=== PATIENT | female | born 1985 | race Two or more races ===

== ENCOUNTER 2016-09-04 20:02 | Emergency (ER) | payer OTHER ==
[2016-09-04 20:36] VITALS: BP 112/84
[2016-09-04] MEDS ORDERED: PROAIR HFA8.5 GM INH (21:05)
[2016-09-04] MEDS ORDERED: PRED20TA PO (21:05)
[2016-09-04] MEDS ORDERED: AZIT250T PO (21:05)
--- NOTE | 2016-09-04 21:05 | PHYS DOC ---
Past Medical History Past Medical History: Diabetes-Type II, Other Additional Past Medical Histor: left leg deficit from injury during birthing Past Surgical History: No Surgical History Alcohol Use: None Drug Use: None Adult General Chief Complaint Chief Complaint: COUGH HPI HPI Patient is a 31 year old female presents emergency department stating that she' s had a cough for the last 2 days. She states that she has also been having some nasal drainage with slight shortness of air. Patient is able to talk in full sentences. She states that she has had fevers in the evening up to 100. She has taken Tylenol and ibuprofen for the fevers although has not taken anything for the cough and congestion. Patient denies any nausea or vomiting. Review of Systems Review of Systems Constitutional: fever Eyes: Denies change in visual acuity, redness, or eye pain [] HENT:nasal congestion denies sore throat [] Respiratory: cough and shortness of breath [] Cardiovascular: No additional information not addressed in HPI [] GI: Denies abdominal pain, nausea, vomiting, bloody stools or diarrhea [] Musculoskeletal: Denies back pain or joint pain [] Integument: Denies rash or skin lesions [] Neurologic: Denies headache, focal weakness or sensory changes [] Current Medications Current Medications Current Medications Medications (Trade) Dose Ordered Sig/Don Start Time Stop Time Status Last Admin Dose Admin Albuterol Sulfate (Ventolin Neb Soln) 2.5 mg 1X ONCE 09/04/16 21:15 09/04/16 21:16 DC 09/04/16 21:18 2.5 MG Allergies Allergies Allergies Coded Allergies Type Severity Reaction Last Updated Verified No Known Drug Allergies 04/14/14 No Physical Exam Physical Exam Constitutional: Well developed, well nourished, no acute distress, non-toxic appearance. [] HENT: Normocephalic, atraumatic, bilateral external ears normal, oropharynx moist, no oral exudates, nose normal. Bilateral tympanic membranes appear to be normal throat with erythematous noted no exudate. She does have postnasal drip noted. No frontal or maxillary sinus tenderness noted she does state that she has pain and discomfort along the bridge of the naris. Eyes: PERRLA, EOMI, conjunctiva normal, no discharge. [] Neck: Normal range of motion, no tenderness, supple, no stridor. [] Cardiovascular:Heart rate regular rhythm, no murmur [] Lungs & Thorax: Bilateral breath sounds clear to auscultation [] Skin: Warm, dry, no erythema, no rash. [] Back: No tenderness Extremities: No tenderness, no cyanosis, no clubbing, ROM intact, no edema. [] Neurologic: Alert and oriented X 3, normal motor function, normal sensory function, no focal deficits noted. [] Psychologic: Affect normal, judgement normal, mood normal. [] Current Patient Data Vital Signs Vital Signs Date Time Temp Pulse Resp B/P Pulse Ox O2 Delivery O2 Flow Rate FiO2 09/04/16 21:13 95 Room Air 09/04/16 20:36 98.0 102 20 98.0 EKG EKG [] Radiology/Procedures Radiology/Procedures [] Course & Med Decision Making Course & Med Decision Making Pertinent Labs and Imaging studies reviewed. (See chart for details) Patient provided with an albuterol treatment here in the emergency department. Patient states that she is breathing better. Patient will be discharged home in stable condition. Signs and symptoms to return to emergency department was provided. Patient agrees with discharge instructions, treatment regimen and followup recommendations. [] Dragon Disclaimer Dragon Disclaimer This electronic medical record was generated, in whole or in part, using a voice recognition dictation system. Departure Departure Impression: Primary Impression: Bronchitis Disposition: 01 HOME, SELF-CARE Condition: STABLE Referrals: CORY GUO MD (PCP) Patient Instructions: Acute Bronchitis, [id number] Additional Instructions: Home to rest Medication as prescribed Tylenol or Ibuprofen for fever, chills or generalized body aches and discomfort Drink plenty of fluids Followup with primary care provider in 3-5 days Return to emergency department as needed for signs and symptoms that become worse. Scripts Azithromycin (Zithromax)250 Mg [id number] Mg PO DAILY ANTI-BIOTIC #6 TAB Ref 0 2 tablets today then 1 tablet daily until gone Prov:LILA MOSER NP 09/04/16 Prednisone 20 Mg Tablet2 Tab PO DAILY #10 TAB Prov:LILA MOSER [employer]NAGER [employer] 09/04/16 Albuterol Sulfate (Proair Hfa Inhaler)8.5 Gm Hfa.aer.ad1 Puff INH PRN Q6HRS PRN SHORTNESS OF BREATH #1 INHALER Ref 0 Prov:LILA MOSER NP 09/04/16 LILA MOSER NP Sep 04, 2016 21:05
[2016-09-04] MEDS ORDERED: ALBUTEROL SULFATE 2.5 MG/3 ML NEBU. NEB ONE (21:15)
== END 2016-09-04 21:46 | disposition home or self-care (01) ==
LOC: ER 20:02
DX: J40 Bronchitis, not specified as acute or chronic (principal); E11.9 Type 2 diabetes mellitus without complications
CPT/HCPCS: 94640; 99283-25

== ENCOUNTER 2016-09-19 18:15 | Emergency (ER) | payer OTHER ==
[~2016-09-19] VITALS: Ht 152.4 cm; Wt 72.6 kg
[~2016-09-19 18:15] MED LIST: AZIT250T PO; PRED20TA PO; PROAIR HFA8.5 GM INH
[2016-09-19 18:25] VITALS: BP 134/82
--- NOTE | 2016-09-19 19:12 | PHYS DOC ---
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 Patient also has a complaint of a sore throat. Patient denies chest pain or shortness of breath. She denies any exposure to anyone with tuberculosis. She denies ever being tested positive for TB. She denies hospitalization or foreign travel within the past 90 days. She states that she did take an antibiotic within the past 30 days for an upper respiratory infection. She does not remember what this antibiotic was. She denies any history of cardiopulmonary disease. She states that she is a nonsmoker. Review of Systems Review of Systems Constitutional: Denies fever or chills [] Eyes: Denies change in visual acuity, redness, or eye pain [] HENT: Denies nasal congestion or sore throat [] Respiratory: Denies cough or shortness of breath [] Cardiovascular: No additional information not addressed in HPI [] GI: Denies abdominal pain, nausea, vomiting, bloody stools or diarrhea [] : Denies dysuria or hematuria [] Musculoskeletal: Denies back pain or joint pain [] Integument: Denies rash or skin lesions [] Neurologic: Denies headache, focal weakness or sensory changes [] Endocrine: Denies polyuria or polydipsia [] Allergies Allergies Allergies Coded Allergies Type Severity Reaction Last Updated Verified No Known Drug Allergies 04/14/14 No Physical Exam Physical Exam Constitutional: Well developed, well nourished, no acute distress, non-toxic appearance. [] HENT: Normocephalic, atraumatic, bilateral external ears normal, oropharynx moist, no oral exudates, nose normal. There is no trismus. Posterior oropharynx is hyperemic with swollen soft tissues. Patient is able to control her own secretions. There is no unilateral swelling in the posterior oropharynx or uvular deviation. Eyes: PERRLA, EOMI, conjunctiva normal, no discharge. [] Neck: Normal range of motion, no tenderness, supple, no stridor. There is no meningismus. There is bilateral anterior and posterior cervical lymphadenopathy. Cardiovascular:Heart rate regular rhythm, no murmur [] Lungs & Thorax: Bilateral breath sounds clear to auscultation [] Abdomen: Bowel sounds normal, soft, no tenderness, no masses, no pulsatile masses. [] Skin: Warm, dry, no erythema, no rash. [] Back: No tenderness, no CVA tenderness. [] Extremities: No tenderness, no cyanosis, no clubbing, ROM intact, no edema. [] Neurologic: Alert and oriented X 3, normal motor function, normal sensory function, no focal deficits noted. [] Psychologic: Affect normal, judgement normal, mood normal. [] Current Patient Data Vital Signs Vital Signs Date Time Temp Pulse Resp B/P Pulse Ox O2 Delivery O2 Flow Rate FiO2 09/19/16 18:25 98.1 99 18 99 Room Air 98.1 EKG EKG [] Radiology/Procedures Radiology/Procedures [] Course & Med Decision Making Course & Med Decision Making Pertinent Labs and Imaging studies reviewed. (See chart for details) [] Dragon Disclaimer Dragon Disclaimer This electronic medical record was generated, in whole or in part, using a voice recognition dictation system. Departure Departure Impression: Primary Impression: Pharyngitis Disposition: HOME, SELF-CARE Condition: GOOD Referrals: CORY GUO MD (PCP) Patient Instructions: Viral and Bacterial Pharyngitis, [id number] Additional Instructions: 1. Take the medications prescribed. 2. Review the discharge instructions provided for self-care and reasons to return the emergency department. 3. Call primary care doctor's office in the morning to schedule follow-up appointment. Scripts Hydrocodone Bit/Acetaminophen (Hydrocodone-Apap 7.5-325/15 Soln )15 Ml [id number] Ml PO PRN Q6HRS PRN sore throat and cough #120 ML Ref 0 Prov:ANSELMO TRIVEDI 09/19/16 Amoxicillin 500 Mg Capsule1 Cap PO TID #30 CAP Prov:ANSELMO TRIVEDI 09/19/16 ANSELMO TRIVEDI Sep 19, 2016 19:12
[2016-09-19] MEDS ORDERED: HYDR15SO4 PO (19:47)
[2016-09-19] MEDS ORDERED: AMOX500C PO (19:47)
--- NOTE | 2016-09-20 08:44 | RAD ---
Indication: Hemoptysis. Time of exam 1920 hours. FINDINGS: The heart size is normal. The lungs are clear. No pleural effusion or pneumothorax is identified. The pulmonary vascularity is normal. IMPRESSION: No acute abnormality detected.
== END 2016-09-19 19:55 | disposition home or self-care (01) ==
LOC: ER 18:15
DX: J02.9 Acute pharyngitis, unspecified (principal); R04.2 Hemoptysis; E11.9 Type 2 diabetes mellitus without complications
CPT/HCPCS: 71020; 99284

== ENCOUNTER 2016-11-01 13:43 | Inpatient (IN) | payer OTHER ==
[~2016-11-01] VITALS: Ht 152.4 cm; Wt 72.6 kg
[2016-11-01] MEDS: MIDAZOLAM HCL 2 MG/2 ML VIAL. IV PRN ×3 (10:37→22:53)
[~2016-11-01 13:43] MED LIST changes: +AMOX500C PO; +HYDR15SO4 PO
[2016-11-01] MEDS ORDERED: IV NORMAL SALINE 1000ML BAG 1,000 ML IV SCH (15:01)
[2016-11-01 15:15] LABS: BASO % 0 % (0-3); EOS % 1 % (0-3); HEMATOCRIT 42.1 % (36.0-47.0); HEMOGLOBIN 13.4 g/dL (12.0-15.5); LYMPH # 2.7 x10^3/uL (1.0-4.8); LYMPH % 29 % (24-48); MEAN CORPUSCULAR HEMOGLOBIN 25 pg (25-35); MEAN CORPUSCULAR HGB CONC 32 g/dL (31-37); MEAN CORPUSCULAR VOLUME 79 fL (79-100); MONO % 4 % (0-9); NEUT % 66 % (31-73); PLATELET COUNT 230 x10^3/uL (140-400); RED BLOOD COUNT 5.33 x10^6/uL (3.50-5.40); RED CELL DISTRIBUTION WIDTH 14.4 % (11.5-14.5); WHITE BLOOD COUNT 9.4 x10^3/uL (4.0-11.0)
[2016-11-01] MEDS ORDERED: FENTANYL PF 100 MCG/2 ML VIAL. IV PRN ×3 (15:15→20:00)
[2016-11-01] MEDS ORDERED: ONDANSETRON PF 4 MG/2 ML VIAL. IV ONE (15:15)
[2016-11-01] MEDS ORDERED: FAMOTIDINE 20 MG/2 ML VIAL IVP ONE (15:15)
[2016-11-01 15:23] LABS: CALCIUM 9.3 mg/dL (8.5-10.1); CREATININE 0.7 mg/dL (0.6-1.0); GFR 98.9; POTASSIUM 3.7 mmol/L (3.5-5.1)
[2016-11-01 15:28] LABS: ALBUMIN/GLOBULIN RATIO 0.8 (1.0-1.7); TOTAL BILIRUBIN 0.4 mg/dL (0.2-1.0); TOTAL PROTEIN 8.8 g/dL (6.4-8.2)
--- NOTE | 2016-11-01 15:44 | RAD ---
Ultrasound right upper quadrant of the abdomen 11/01/2016 Clinical history: Right upper quadrant abdominal pain with nausea and vomiting. Real-time ultrasound examination right upper quadrant abdomen was performed. Multiple images were obtained. Findings: Echogenic gallstones are seen within the gallbladder. The gallbladder wall is thickened measuring 5 mm in thickness. The patient is tender with palpation of the ultrasound transducer over the gallbladder (positive sonographic [place] sign). These findings likely reflect cholecystitis. The common bile duct measures 6 mm in diameter which is within the upper limits of normal. The liver is normal in size measuring 11.4 cm in length. Increased echogenicity of the liver parenchyma seen consistent with mild fatty infiltration. No focal abnormality of the liver is seen. The visualized portions of the pancreas and right kidney are within normal limits. Impression: 1. Fatty infiltration liver. 2. Cholelithiasis. The gallbladder wall is thickened. The patient has a positive sonographic Lewis sign. These findings likely reflect cholecystitis.
[2016-11-01 16:33] LABS: BILIRUBIN,URINE NEGATIVE (NEG); GLUCOSE,URINE NEGATIVE (NEG); NITRITE,URINE NEGATIVE (NEG); PH,URINE 5.5; PROTEIN,URINE NEGATIVE (NEG-TRACE); UROBILINOGEN,URINE 0.2 mg/dL (0.2 mg/dL)
[2016-11-01 16:38] LABS: BACTERIA,URINE 0 /HPF (0-FEW)
[2016-11-01 16:42] LABS: SQUAMOUS EPITHELIAL CELL,UR FEW /LPF
--- NOTE | 2016-11-01 17:25 | PHYS DOC ---
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 Patient states that she has had symptoms over the past 2 days. Patient states her pain is progressively worsening during this time. Patient states the worst of her pain is in the upper portion of her abdomen and on the right side. Patient denies history of similar symptoms. Patient states that she has had multiple episodes of both vomiting and diarrhea since onset of symptoms. Patient denies any fevers. Patient rates her pain currently as 8 out of 10. Patient has not taken any medications to help with symptoms. Patient denies any known exacerbating symptoms. Patient states that the pain is constant. Review of Systems Review of Systems Constitutional: Denies fever or chills [] Eyes: Denies change in visual acuity, redness, or eye pain [] HENT: Denies nasal congestion or sore throat [] Respiratory: Denies cough or shortness of breath [] Cardiovascular: Denies chest pain or edema [] GI: Abdominal pain, nausea, vomiting, diarrhea [] : Denies dysuria or hematuria [] Musculoskeletal: Denies back pain or joint pain [] Integument: Denies rash or skin lesions [] Neurologic: Denies headache, focal weakness or sensory changes [] Current Medications Current Medications Current Medications Medications (Trade) Dose Ordered Sig/Don Start Time Stop Time Status Last Admin Dose Admin Famotidine (Pepcid) 20 mg 1X ONCE 11/01/16 15:15 11/01/16 15:16 DC 11/01/16 15:11 20 MG Fentanyl Citrate 50 mcg 50 mcg PRN Q15MIN PRN 11/01/16 15:15 11/02/16 15:14 11/01/16 15:10 50 MCG Ondansetron HCl (Zofran) 4 mg 1X ONCE 11/01/16 15:15 11/01/16 15:16 DC 11/01/16 15:11 4 MG Sodium Chloride (Iv Sodium Chloride 0.9% 1000ml Bag) 1,000 ml @ 1,000 mls/hr Q1H 11/01/16 15:01 11/01/16 16:00 DC 11/01/16 15:10 1,000 MLS/HR Allergies Allergies Allergies Coded Allergies Type Severity Reaction Last Updated Verified No Known Drug Allergies 04/14/14 No Physical Exam Physical Exam Constitutional: Alert, afebrile, appears in mild to moderate discomfort. [] HENT: Normocephalic, atraumatic, bilateral external ears normal, oropharynx moist, no oral exudates, nose normal. [] Eyes: PERRLA, EOMI, conjunctiva normal, no discharge. [] Neck: Normal range of motion, no tenderness, supple, no stridor. [] Cardiovascular:Heart rate regular rhythm, no murmur [] Lungs & Thorax: Bilateral breath sounds clear to auscultation [] Abdomen: Bowel sounds normal, soft, right upper quadrant tenderness to palpation with guarding, no rebound tenderness, no masses, no pulsatile masses. [] Skin: Warm, dry, no erythema, no rash. [] Back: No tenderness, no CVA tenderness. [] Extremities: No tenderness, no cyanosis, no clubbing, ROM intact, no edema. [] Neurologic: Alert and oriented X 3, normal motor function, normal sensory function, no focal deficits noted. [] Current Patient Data Vital Signs Vital Signs Date Time Temp Pulse Resp B/P Pulse Ox O2 Delivery O2 Flow Rate FiO2 11/01/16 16:18 71 20 116/73 98 Room Air 11/01/16 14:09 98.3 98.3 Lab Values Laboratory Tests Test 11/01/16 14:10 11/01/16 16:10 White Blood Count 9.4x10^3/uL (4.0-11.0) Red Blood Count 5.33x10^6/uL (3.50-5.40) Hemoglobin 13.4g/dL (12.0-15.5) Hematocrit 42.1% (36.0-47.0) Mean Corpuscular Volume 79fL (79-100) Mean Corpuscular Hemoglobin 25pg (25-35) Mean Corpuscular Hemoglobin Concent 32g/dL (31-37) Red Cell Distribution Width 14.4% (11.5-14.5) Platelet Count 230x10^3/uL (140-400) Neutrophils (%) (Auto) 66% (31-73) Lymphocytes (%) (Auto) 29% (24-48) Monocytes (%) (Auto) 4% (0-9) Eosinophils (%) (Auto) 1% (0-3) Basophils (%) (Auto) 0% (0-3) Neutrophils # (Auto) 6.2x10^3uL (1.8-7.7) Lymphocytes # (Auto) 2.7x10^3/uL (1.0-4.8) Monocytes # (Auto) 0.4x10^3/uL (0.0-1.1) Eosinophils # (Auto) 0.1x10^3/uL (0.0-0.7) Basophils # (Auto) 0.0x10^3/uL (0.0-0.2) Sodium Level 140mmol/L (136-145) Potassium Level 3.7mmol/L (3.5-5.1) Chloride Level 105mmol/L (98-107) Carbon Dioxide Level 23mmol/L (21-32) Anion Gap 12 (6-14) Blood Urea Nitrogen 8mg/dL (7-20) Creatinine 0.7mg/dL (0.6-1.0) Estimated GFR (Cockcroft-Gault) 98.9 BUN/Creatinine Ratio 11 (6-20) Glucose Level 105mg/dL (70-99) H Calcium Level 9.3mg/dL (8.5-10.1) Total Bilirubin 0.4mg/dL (0.2-1.0) Aspartate Amino Transferase (AST) 17U/L (15-37) Alanine Aminotransferase (ALT) 20U/L (14-59) Alkaline Phosphatase 85U/L (46-116) Total Protein 8.8g/dL (6.4-8.2) H Albumin 4.0g/dL (3.4-5.0) Albumin/Globulin Ratio 0.8 (1.0-1.7) L Lipase 120U/L (73-393) Urine Collection Type Unknown Urine Color Yellow Urine Clarity Clear Urine pH 5.5 Urine Specific [place] 1.020 Urine Protein Negativemg/dL (NEG-TRACE) Urine Glucose (UA) Negativemg/dL (NEG) Urine Ketones (Stick) Tracemg/dL (NEG) Urine Blood Negative (NEG) Urine Nitrite Negative (NEG) Urine Bilirubin Negative (NEG) Urine Urobilinogen Dipstick 0.2mg/dL (0.2 mg/dL) Urine Leukocyte Esterase Negative (NEG) Urine RBC 1-2/HPF (0-2) Urine WBC 1-4/HPF (0-4) Urine Squamous Epithelial Cells Few/LPF Urine Bacteria 0/HPF (0-FEW) Urine Mucus Mod/LPF Laboratory Tests 11/01/16 14:10 Laboratory Tests 11/01/16 14:10 EKG EKG Not performed [] Radiology/Procedures Radiology/Procedures [facility] [address] [place] [address] IMAGING REPORT Signed PATIENT: KAUR PEREIRA ACCOUNT: [id number] : 1985 LOCATION: ER AGE: 31 SEX: F EXAM STATUS: REG ER ORD. PHYSICIAN: ARBEN GONZALES MD REASON: epigastric and right upper quadrant abdominal pain PROCEDURE: ABDOMEN LTD Ultrasound right upper quadrant of the abdomen 11/01/2016 Clinical history: Right upper quadrant abdominal pain with nausea and vomiting. Real-time ultrasound examination right upper quadrant abdomen was performed. Multiple images were obtained. Findings: Echogenic gallstones are seen within the gallbladder. The gallbladder wall is thickened measuring 5 mm in thickness. The patient is tender with palpation of the ultrasound transducer over the gallbladder (positive sonographic [place] sign). These findings likely reflect cholecystitis. The common bile duct measures 6 mm in diameter which is within the upper limits of normal. The liver is normal in size measuring 11.4 cm in length. Increased echogenicity of the liver parenchyma seen consistent with mild fatty infiltration. No focal abnormality of the liver is seen. The visualized portions of the pancreas and right kidney are within normal limits. Impression: 1. Fatty infiltration liver. 2. Cholelithiasis. The gallbladder wall is thickened. The patient has a positive sonographic Lewis sign. These findings likely reflect cholecystitis. DICTATED and SIGNED BY: STEPHANY MCCARTHY MD DATE: 11/01/16 1538 CC: ARBEN GONZALES MD; CORY GUO MD ~ [] Course & Med Decision Making Course & Med Decision Making Pertinent Labs and Imaging studies reviewed. (See chart for details) The patient's ultrasound shows findings concerning for acute cholecystitis. I consult that Dr. Jin of general surgery. She agreed consult on patient in hospital to evaluate for possible inpatient cholecystectomy. Patient was admitted to Dr. Pappas. eJsús Disclaimer Jesús Disclaimer This electronic medical record was generated, in whole or in part, using a voice recognition dictation system. Departure Departure Impression: Primary Impression: Acute cholecystitis Disposition: ADMITTED INPATIENT Admitting Physician: Maribel Pappas Condition: STABLE Referrals: CORY GUO MD (PCP) ARBEN GONZALES MD Nov 01, 2016 17:25
[2016-11-01] MEDS ORDERED: ONDANSETRON PF 4 MG/2 ML VIAL. IV PRN (17:45)
[2016-11-01] MEDS: IV NORMAL SALINE 1000ML BAG 1,000 ML IV SCH (18:00)
--- NOTE | 2016-11-01 18:21 | ACF ---
Admission Forms Criteria GALLBLADDER OR BILE DUCT INFLAMMATION OR STONE Clinical Indications for Admission to Inpatient Care ( Place 'X' for any and all applicable criteria): Admission is indicated for patients with ANY ONE of the following(1)(2)(3)(4)(5) : [ ]I. Acute cholecystitis as indicated by ALL of the following: [ ]a) Right upper quadrant pain, mass, or tenderness [ ]b) Systemic signs of inflammation indicated by ANY ONE of the following: [ ]i) Fever [ ]ii) C-reactive protein level greater than 10 mg/L (95 nmol/L) [ ]iii) White blood cell count greater than 10,000/mm3 (10 x109/L) or less than 4000/mm3 (4 x109/L) [X]II. Inpatient admission required rather than observation care (Also use Gallbladder or Bile Duct Inflammation or Stone: Observation Care as appropriate) because of ANY ONE of the following: [ ]a) Common bile duct obstruction diagnosed [ ]b) Vomiting that is severe or persistent [X]c) Severe pain requiring acute inpatient management [ ]d) Signs of intestinal obstruction or peritonitis [A] [ ]e) Severe electrolyte abnormalities requiring inpatient care [ ]f) Absent bowel sounds with complete ileus(8) [ ]g) Hemodynamic instability [ ]h) High fever or infection requiring inpatient admission as indicated by ANY ONE of the following (9): [ ]1) Appropriate outpatient or observation care antimicrobial Treatment. unavailable, not effective, or not feasible [ ]2) Temperature greater than 104.9 degrees F (40.5 degrees C) (oral) [ ]3) Temperature greater than 103.1 degrees F (39.5 degrees C) (oral) or less than 96.8 degrees F (36 degrees C) (rectal) that does not respond to all emergency treatment measures [ ]4) Documented bacteremia [ ]i) IV fluid to replace significant ongoing losses (greater than 3 L/m2 per day) [ ]j) Percutaneous or open drainage (eg, abscess, biliary tract) procedures [ ]k) Immediate inpatient surgery [ ]l) Other condition, treatment or monitoring requiring inpatient admission [ ]III. Acute cholangitis as indicated by ALL of the following(9)(10): [ ]a) Systemic signs of inflammation indicated by ANY ONE of the following: [ ]i) Fever [ ]ii) C-reactive protein level greater than 10 mg/L (95 nmol /L) [ ]iii) White blood cell count greater than 10,000/mm3 (10 x109/L) or less than 4000/mm3 (4 x109/L) [ ]b) Evidence of common bile duct disease indicated by ANY ONE of the following: [ ]i) Total serum bilirubin level greater than or equal to 2 mg/dL (34 micromoles/L) [ ]ii) Liver function test (alkaline phosphatase (ALP), r- glutamyltransferase (GGT), aspartate aminotransferase (AST), or alanine aminotransferase (ALT)) greater than 1.5 times the upper limit of normal[B] [ ]iii) Hepatobiliary imaging showing biliary dilatation or evidence of etiology (eg, stricture, stone, previously placed stent) Extended stay beyond goal length of stay may be needed for (1)(2)): [ ]a) Bacteremia or Hemodynamic instability [ ]b) Cholecystectomy [ ]c) Other surgical procedure(24) [ ]d) Percutaneous or endoscopic ultrasound-guided cholecystostomy The original [facility] content created by [facility] has been revised. The portions of the content which have been revised are identified through the use of italic text or in bold, and [facility] has neither reviewed nor approved the modified material. All other unmodified content is copyright [facility]. Please see references footnoted in the original [facility] edition 2016 Admission Criteria Met?: Yes KATY ALATORRE Nov 01, 2016 18:21
[2016-11-01 19:30] VITALS: BP 128/86
[2016-11-01] MEDS ORDERED: IV RINGERS,LACTATED 1000ML 1,000 ML IV SCH (19:56)
[2016-11-01] MEDS ORDERED: PROCHLORPERAZINE 10 MG/2 ML VIAL. IV PRN (20:00)
[2016-11-01] MEDS ORDERED: MORPHINE SULFATE 2 MG/ML DISP.SYRIN. IV PRN (20:00)
[2016-11-01] MEDS ORDERED: HYDROMORPHONE 2 MG/ML VIAL. IV PRN (20:00)
[2016-11-01] MEDS ORDERED: LIDOCAINE 1% 1 ML SYRINGE. ID PRN (20:00)
[2016-11-01] MEDS ORDERED: BUPIVAC MPF-EPI 0.5%-1:200000 30 ML VIAL. ONE (20:28)
[2016-11-01] MEDS ORDERED: SURGICEL HEMOSTAT 4X8 EACH. ONE (20:28)
[2016-11-01] MEDS ORDERED: IOHEXOL 300 MG/ML 50 ML VIAL. ONE (20:28)
[2016-11-01] MEDS ORDERED: MIDAZOLAM HCL 2 MG/2 ML VIAL. ONE ×2 (20:42→22:36)
[2016-11-01] MEDS ORDERED: ROCURONIUM 50 MG/5 ML VIAL. ONE (20:42)
[2016-11-01] MEDS ORDERED: FENTANYL PF 100 MCG/2 ML VIAL. ONE (20:42)
[2016-11-01] MEDS ORDERED: DEXAMETHASONE SOD PHOS 20 MG/5 ML VIAL. ONE (20:42)
[2016-11-01] MEDS ORDERED: ONDANSETRON PF 4 MG/2 ML VIAL. ONE (20:42)
[2016-11-01] MEDS ORDERED: PROPOFOL 20 ML IV ONE (20:42)
[2016-11-01] MEDS ORDERED: LIDOCAINE 2% 100 MG/5 ML DISP.SYRIN. ONE (20:42)
[2016-11-01] MEDS ORDERED: SUCCINYLCHOLINE 200 MG/10 ML VIAL. ONE (20:58)
[2016-11-01] MEDS ORDERED: CEFAZOLIN 2GM PREMIX 50 ML IV ONE ×2 (21:00→21:02)
--- NOTE | 2016-11-01 21:04 | PDOC ---
Provider Note Provider Note consult dictated #[id number] a/p acute cholecystitis. r/b d/w pt. i used the de ionizer operator phone for the entire visit. PERRI FLOR MD Nov 01, 2016 21:03
[2016-11-01] MEDS ORDERED: HYDROMORPHONE 2 MG/ML VIAL. IVP PRN (21:15)
[2016-11-01] MEDS ORDERED: GLYCOPYRROLATE 1 MG/5 ML VIAL. ONE (21:56)
[2016-11-01] MEDS ORDERED: NEOSTIGMINE METHYLSULFATE 5 MG/5 ML SYRINGE. ONE (21:56)
[2016-11-01] MEDS ORDERED: KETOROLAC 30 MG/ML SYRINGE FOR OR. INJ ONE (21:56)
[2016-11-01] MEDS ORDERED: DESFLURANE 31 TO 60 MINUTES IH ONE (21:59)
--- NOTE | 2016-11-01 22:18 | PDOC ---
BRIEF OPERATIVE NOTE Pre-Op Diagnosis cholecystitis lap juan, ioc k terrie youssef ebl 10 ivf 700 [facility] #[id number] PERRI FLOR MD Nov 01, 2016 22:18
[2016-11-01] MEDS ORDERED: RACEPINEPHRINE 2.25% 0.5 ML NEBU. ONE (22:33)
--- NOTE | 2016-11-01 22:39 | PDOC1 ---
History and Physical Date of Admission Date of Admission DATE: 11/01/16 TIME: 22:36 Identification/Chief Complaint Chief Complaint abd pain Source Source: Chart review, Patient History of Present Illness History of Present Illness Ms. Wong, is a 31 year old [place]an female admited for acute abdominal pain, nausea, vomiting, and diarrhea. 2 days of symptoms. Pain was 8/10 ER diagnosed acute juan, taken to OR tonight by Dr. Jin, Past Medical History Cardiovascular: No pertinent hx Pulmonary: No pertinent hx GI: No pertinent hx Heme/Onc: No pertinent hx Hepatobiliary: No pertinent hx Psych: No pertinent hx Rheumatologic: No pertinent hx Infectious disease: No pertinent hx Grav: 3 Para: 3 Past Surgical History Past Surgical History: No pertinent history Family History Family History: No Significant Social History Smoke: No ALCOHOL: none Current Problem List Problem List Problems Medical Problems: (1) Acute cholecystitis Status: Acute Problems: Current Medications Current Medications Current Medications Fentanyl Citrate 50 mcg 50 mcg PRN Q15MIN PRN IV PAIN GREATER THAN 3/10 Last administered on 11/01/16 15:10; Start 11/01/16 at 15:15; Stop 11/02/16 at 15:14 Sodium Chloride (Iv Sodium Chloride 0.9% 1000ml Bag) 1,000 ml @ 1,000 mls/hr Q1H IV Last administered on 11/01/16 15:10; Start 11/01/16 at 15:01; Stop at 16:00; Status DC Ondansetron HCl (Zofran) 4 mg 1X ONCE IV Last administered on 11/01/16 15:11; Start 11/01/16 at 15:15; Stop 11/01/16 at 15:16; Status DC Famotidine (Pepcid) 20 mg 1X ONCE IVP Last administered on 11/01/16 15:11; Start 11/01/16 at 15:15; Stop 11/01/16 at 15:16; Status DC Ondansetron HCl (Zofran) 4 mg PRN Q8HRS PRN IV NAUSEA/VOMITING; Start 11/01/16 at 17:45; Stop 11/02/16 at 17:44 Fentanyl Citrate 50 mcg 50 mcg PRN Q2HR PRN IV PAIN; Start 11/01/16 at 17:45; Stop 11/02/16 at 17:44 Sodium Chloride (Iv Sodium Chloride 0.9% 1000ml Bag) 1,000 ml @ 125 mls/hr Q8H IV ; Start 11/01/16 at 18:00; Stop 11/02/16 at 17:59 Fentanyl Citrate (Fentanyl 2ml Vial) 25 mcg PRN Q5MIN PRN IV MILD PAIN; Start 11/01/16 at 20:00; Stop 11/02/16 at 19:59 Fentanyl Citrate (Fentanyl 2ml Vial) 50 mcg PRN Q5MIN PRN IV MODERATE PAIN; Start 11/01/16 at 20:00; Stop 11/02/16 at 19:59 Morphine Sulfate 1 mg 1 mg PRN Q10MIN PRN IV SEVERE PAIN; Start 11/01/16 at 20: 00; Stop 11/02/16 at 19:59 Lactated Ringer's (Iv Lactated Ringers) 1,000 ml @ 0 mls/hr Q0M IV Last administered on 11/01/16 21:30; Start 11/01/16 at 19:56; Stop 11/02/16 at 07:55 Lidocaine HCl 2 ml 1X PRN PRN ID IV START; Start 11/01/16 at 20:00; Stop at 19:59 Hydromorphone HCl (Dilaudid) 0.5 mg PRN Q10MIN PRN IV SEV PAIN,Second choice; Start 11/01/16 at 20:00; Stop 11/02/16 at 19:59 Prochlorperazine Edisylate (Compazine) 5 mg PACU PRN PRN IV NAUSEA; Start at 20:00; Stop 11/02/16 at 19:59 Cellulose 1 each STK-MED ONCE .ROUTE ; Start 11/01/16 at 20:28; Stop 11/01/16 at 20:29; Status DC Bupivacaine HCl/ Epinephrine Bitart (Sensorcain-Mpf Epi 0.5%-[id number]) 30 ml STK -MED ONCE .ROUTE Last administered on 11/01/16 21:39; Start 11/01/16 at 20:28; Stop 11/01/16 at 20:29; Status DC Iohexol (Omnipaque 300 Mg/ml) 50 ml STK-MED ONCE .ROUTE Last administered on 21:39; Start 11/01/16 at 20:28; Stop 11/01/16 at 20:29; Status DC Dexamethasone Sodium Phosphate (Decadron) 20 mg STK-MED ONCE .ROUTE ; Start 11/01 at 20:42; Stop 11/01/16 at 20:43; Status DC Ondansetron HCl 4 mg 4 mg STK-MED ONCE .ROUTE ; Start 11/01/16 at 20:42; Stop 11/01/16 at 20:43; Status DC Propofol (Diprivan) 20 ml @ As Directed STK-MED ONCE IV ; Start 11/01/16 at 20:42 ; Stop 11/01/16 at 20:43; Status DC Lidocaine HCl 100 mg STK-MED ONCE .ROUTE ; Start 11/01/16 at 20:42; Stop 11/01/16 at 20:43; Status DC Midazolam HCl (Versed) 2 mg STK-MED ONCE .ROUTE ; Start 11/01/16 at 20:42; Stop 11/01/16 at 20:43; Status DC Fentanyl Citrate (Fentanyl 2ml Vial) 100 mcg STK-MED ONCE .ROUTE ; Start at 20:42; Stop 11/01/16 at 20:43; Status DC Rocuronium [place] 50 mg 50 mg STK-MED ONCE .ROUTE ; Start 11/01/16 at 20:42; Stop 11/01/16 at 20:43; Status DC Cefazolin Sodium/ Dextrose (Ancef 2gm Premix) 50 ml @ 100 mls/hr 1X ONCE IV Last administered on 11/01/16 21:20; Start 11/01/16 at 21:00; Stop 11/01/16 at 21: 29; Status DC Succinylcholine Chloride 200 mg 200 mg STK-MED ONCE .ROUTE ; Start 11/01/16 at 20 :58; Stop 11/01/16 at 20:59; Status DC Cefazolin Sodium/ Dextrose (Ancef 2gm Premix) 50 ml @ As Directed STK-MED ONCE IV ; Start 11/01/16 at 21:02; Stop 11/01/16 at 21:03; Status DC Oxycodone/ Acetaminophen (Percocet 5/325) 2 tab PRN Q4HRS PRN PO PAIN; Start at 21:15 Hydromorphone HCl (Dilaudid) 0.4 mg PRN Q2HR PRN IVP PAIN; Start 11/01/16 at 21: 15 Ketorolac Tromethamine (Toradol For Or Only) 30 mg STK-MED ONCE INJ ; Start 11/01 at 21:56; Stop 11/01/16 at 21:57; Status DC Glycopyrrolate (Robinul) 1 mg STK-MED ONCE .ROUTE ; Start 11/01/16 at 21:56; Stop 11/01/16 at 21:57; Status DC Neostigmine Methylsulfate 5 mg STK-MED ONCE .ROUTE ; Start 11/01/16 at 21:56; Stop 11/01/16 at 21:57; Status DC Desflurane (Suprane) 30 ml STK-MED ONCE IH ; Start 11/01/16 at 21:59; Stop at 22:00; Status DC Epinephrine (S2 Racepinephrine) 0.5 ml STK-MED ONCE .ROUTE ; Start 11/01/16 at 22 :33; Stop 11/01/16 at 22:34; Status DC Active Scripts Active Allergies Allergies: Coded Allergies: No Known Drug Allergies (Unverified , 04/14/14) ROS PSYCHOLOGICAL ROS: YES: Anxiety Respiratory: No: Cough, Hemoptysis, Orthopnea, Other, Pleuritic Pain, SOB with excertion, Shortness of breath, Sputum Changes, Stridor, Tachypnea, Wheezing Cardiovascular: No Chest Pain, No Edema, No Lt Headedness, No Orthopnea, No Other, No Palpitations, No Paroxysmal Noc. Dyspnea Gastrointestinal: Yes Abdominal Pain, Yes Nausea Genitourinary: No , No , No , No , No , No , No , No Discharge, No Dysuria, No Flank Pain, No Frequency, No Hematuria, No Incontinence, No Other, No Pain, No Retention, No Urgency Musculoskeletal: No Gait Disturbance, No Joint Pain, No Joint Stiffness, No Joint Swelling, No Muscle Pain, No Muscular Weakness, No Other, No Pain In:, No Swelling In: Neurological: No Behavorial Changes, No Bowel/Bladder ControlChng, No Confusion , No Dizziness, No Gait Disturbance, No Headaches, No Impaired Coord/balance, No Memory Loss, No Numbness/Tingling, No Other, No Seizures, No Speech Problems , No Tremors, No Visual Changes, No Weakness Skin: No Acne, No Dry Skin, No Eczema, No Hair Changes, No Lumps, No Mole Changes, No Mottling, No Nail Changes, No Other, No Pruritus, No Rash, No Skin Lesion Changes Physical Exam General: Alert, Cooperative, moderate distress, Other (confused) HEENT: Atraumatic, PERRLA Lungs: Clear to auscultation Heart: no murmurs Abdomen: Soft ( tender, guarding) Rectal Exam: not examined Extremities: No cyanosis, Normal pulses Skin: No breakdown Neuro: Normal tone Vitals Vitals Vital Signs Date Time Temp Pulse Resp B/P Pulse Ox O2 Delivery O2 Flow Rate FiO2 11/01/16 21:20 70 20 142/81 100 Room Air 11/01/16 19:30 97.7 97.7 Labs Labs Laboratory Tests Test 11/01/16 14:10 11/01/16 16:10 11/01/16 21:09 White Blood Count 9.4x10^3/uL (4.0-11.0) Red Blood Count 5.33x10^6/uL (3.50-5.40) Hemoglobin 13.4g/dL (12.0-15.5) Hematocrit 42.1% (36.0-47.0) Mean Corpuscular Volume 79fL (79-100) Mean Corpuscular Hemoglobin 25pg (25-35) Mean Corpuscular Hemoglobin Concent 32g/dL (31-37) Red Cell Distribution Width 14.4% (11.5-14.5) Platelet Count 230x10^3/uL (140-400) Neutrophils (%) (Auto) 66% (31-73) Lymphocytes (%) (Auto) 29% (24-48) Monocytes (%) (Auto) 4% (0-9) Eosinophils (%) (Auto) 1% (0-3) Basophils (%) (Auto) 0% (0-3) Neutrophils # (Auto) 6.2x10^3uL (1.8-7.7) Lymphocytes # (Auto) 2.7x10^3/uL (1.0-4.8) Monocytes # (Auto) 0.4x10^3/uL (0.0-1.1) Eosinophils # (Auto) 0.1x10^3/uL (0.0-0.7) Basophils # (Auto) 0.0x10^3/uL (0.0-0.2) Sodium Level 140mmol/L (136-145) Potassium Level 3.7mmol/L (3.5-5.1) Chloride Level 105mmol/L (98-107) Carbon Dioxide Level 23mmol/L (21-32) Anion Gap 12 (6-14) Blood Urea Nitrogen 8mg/dL (7-20) Creatinine 0.7mg/dL (0.6-1.0) Estimated GFR (Cockcroft-Gault) 98.9 BUN/Creatinine Ratio 11 (6-20) Glucose Level 105mg/dL (70-99) Calcium Level 9.3mg/dL (8.5-10.1) Total Bilirubin 0.4mg/dL (0.2-1.0) Aspartate Amino Transf (AST/SGOT) 17U/L (15-37) Alanine Aminotransferase (ALT/SGPT) 20U/L (14-59) Alkaline Phosphatase 85U/L (46-116) Total Protein 8.8g/dL (6.4-8.2) Albumin 4.0g/dL (3.4-5.0) Albumin/Globulin Ratio 0.8 (1.0-1.7) Lipase 120U/L (73-393) Urine Collection Type Unknown Urine Color Yellow Urine Clarity Clear Urine pH 5.5 Urine Specific [place] 1.020 Urine Protein Negativemg/dL (NEG-TRACE) Urine Glucose (UA) Negativemg/dL (NEG) Urine Ketones (Stick) Tracemg/dL (NEG) Urine Blood Negative (NEG) Urine Nitrite Negative (NEG) Urine Bilirubin Negative (NEG) Urine Urobilinogen Dipstick 0.2mg/dL (0.2 mg/dL) Urine Leukocyte Esterase Negative (NEG) Urine RBC 1-2/HPF (0-2) Urine WBC 1-4/HPF (0-4) Urine Squamous Epithelial Cells Few/LPF Urine Bacteria 0/HPF (0-FEW) Urine Mucus Mod/LPF Glucose (Fingerstick) 83mg/dL (70-99) Laboratory Tests Test 11/01/16 14:10 11/01/16 16:10 11/01/16 21:09 White Blood Count 9.4x10^3/uL (4.0-11.0) Red Blood Count 5.33x10^6/uL (3.50-5.40) Hemoglobin 13.4g/dL (12.0-15.5) Hematocrit 42.1% (36.0-47.0) Mean Corpuscular Volume 79fL (79-100) Mean Corpuscular Hemoglobin 25pg (25-35) Mean Corpuscular Hemoglobin Concent 32g/dL (31-37) Red Cell Distribution Width 14.4% (11.5-14.5) Platelet Count 230x10^3/uL (140-400) Neutrophils (%) (Auto) 66% (31-73) Lymphocytes (%) (Auto) 29% (24-48) Monocytes (%) (Auto) 4% (0-9) Eosinophils (%) (Auto) 1% (0-3) Basophils (%) (Auto) 0% (0-3) Neutrophils # (Auto) 6.2x10^3uL (1.8-7.7) Lymphocytes # (Auto) 2.7x10^3/uL (1.0-4.8) Monocytes # (Auto) 0.4x10^3/uL (0.0-1.1) Eosinophils # (Auto) 0.1x10^3/uL (0.0-0.7) Basophils # (Auto) 0.0x10^3/uL (0.0-0.2) Sodium Level 140mmol/L (136-145) Potassium Level 3.7mmol/L (3.5-5.1) Chloride Level 105mmol/L (98-107) Carbon Dioxide Level 23mmol/L (21-32) Anion Gap 12 (6-14) Blood Urea Nitrogen 8mg/dL (7-20) Creatinine 0.7mg/dL (0.6-1.0) Estimated GFR (Cockcroft-Gault) 98.9 BUN/Creatinine Ratio 11 (6-20) Glucose Level 105mg/dL (70-99) Calcium Level 9.3mg/dL (8.5-10.1) Total Bilirubin 0.4mg/dL (0.2-1.0) Aspartate Amino Transf (AST/SGOT) 17U/L (15-37) Alanine Aminotransferase (ALT/SGPT) 20U/L (14-59) Alkaline Phosphatase 85U/L (46-116) Total Protein 8.8g/dL (6.4-8.2) Albumin 4.0g/dL (3.4-5.0) Albumin/Globulin Ratio 0.8 (1.0-1.7) Lipase 120U/L (73-393) Urine Collection Type Unknown Urine Color Yellow Urine Clarity Clear Urine pH 5.5 Urine Specific [place] 1.020 Urine Protein Negativemg/dL (NEG-TRACE) Urine Glucose (UA) Negativemg/dL (NEG) Urine Ketones (Stick) Tracemg/dL (NEG) Urine Blood Negative (NEG) Urine Nitrite Negative (NEG) Urine Bilirubin Negative (NEG) Urine Urobilinogen Dipstick 0.2mg/dL (0.2 mg/dL) Urine Leukocyte Esterase Negative (NEG) Urine RBC 1-2/HPF (0-2) Urine WBC 1-4/HPF (0-4) Urine Squamous Epithelial Cells Few/LPF Urine Bacteria 0/HPF (0-FEW) Urine Mucus Mod/LPF Glucose (Fingerstick) 83mg/dL (70-99) VTE Prophylaxis Ordered VTE Prophylaxis Devices: Yes VTE Pharmacological Prophylaxi: No Assessment/Plan Assessment/Plan ACute cholecystitis taken to OR by Dr. Davin dumont I saw patient post op, she was confused and lethargic, and seemed in some panic she was able to move her right arm and leg, unable to move her left arm or left leg no plantar reflex, 3 beats clonus to ankle jerk, stat consult to Dr. You, Neuro, pt was reported fine before going to OR, MAGO HAIRSTON MD Nov 01, 2016 22:39
[2016-11-01] MEDS: FENTANYL PF 100 MCG/2 ML VIAL. IV PRN ×2 (22:50→23:12)
--- NOTE | 2016-11-01 23:03 | EKG ---
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
[2016-11-01] MEDS ORDERED: MIDAZOLAM HCL 2 MG/2 ML VIAL. IV SCH (23:45)
[2016-11-01] MEDS ORDERED: ASPIRIN ENTERIC COATED 325 MG TABLET.DR. PO ONE (23:55)
[2016-11-02] VITALS (9 sets, daily range): BP systolic 107–137; BP diastolic 62–78
[2016-11-02] MEDS: OXYCODONE/APAP 5/325 TABLET. PO PRN ×3 (00:23→12:25)
[2016-11-02] MEDS ORDERED: METF500T4 PO (00:29)
--- NOTE | 2016-11-02 00:31 | OP ---
DATE OF SURGERY: 11/01/2016 PREOPERATIVE DIAGNOSIS: Acute cholecystitis. POSTOPERATIVE DIAGNOSIS: Symptomatic cholelithiasis. PROCEDURE: Laparoscopic cholecystectomy with intraoperative cholangiogram. SURGEON: Cherry Flor M.D. ANESTHESIA: General. ESTIMATED BLOOD LOSS: 10 mL. IV FLUIDS: 700 mL. INDICATIONS: The patient is a 31-year-old female who presents with right upper quadrant epigastric pain. Ultrasound was read as acute cholecystitis. She was taken to operating room for cholecystectomy. FINDINGS: Her gallbladder was soft, without obvious evidence of acute inflammation. Intraoperative cholangiogram was interpreted as normal. DESCRIPTION OF PROCEDURE: After informed consent was obtained, the patient was taken to the operating room and placed in supine position. After adequate induction of general anesthesia, she was prepped and draped in usual sterile fashion. An umbilical skin incision was made with a scalpel, subcutaneous tissues with a hemostat. [facility] was used to grab the fascia and lift it anteriorly. Veress was used to gain access to the peritoneal cavity. Low opening pressures confirmed intraperitoneal placement of Veress. Pneumoperitoneum to 15 mmHg was established followed by placement of 5 mm port. A 5 mm 30 degree lens was inserted, which revealed good port placement. No evidence of entry trauma. She was placed head up, rotated towards her left. Three additional ports were placed under direct vision after the sites were injected with local anesthetic. One was an 11 mm epigastric and two were 5 mm right lateral ports. The gallbladder was soft and pliable. The fundus was retracted over the liver and slightly towards the right. The infundibulum was retracted towards the right and towards her toes to open triangle of Calot. The leading peritoneal edge was scored with cautery medially and laterally and carried back towards the liver with cautery. [place] dissector was then used to dissect out the triangle of Calot. At the completion of dissection, 2 structures were seen leading directly to the gallbladder, one was a cystic artery, one was a cystic duct. The gallbladder had been partially dissected away from the liver bed. The liver could be seen behind the gallbladder. The gallbladder was dissected away from the cystic plate. The base of the gallbladder was free of extraneous tissue. Two clips were placed on cystic artery proximally and one distally and the artery divided sharply. A clip was placed on cystic duct adjacent to the infundibulum and a ductotomy was made with scissors. Intraoperative cholangiogram showed free flow of contrast. The cystic duct, common bile duct, common hepatic, left and right hepatics, intrahepatic radicles, free flow of contrast into the duodenum with no filling defects. The catheter was removed and 3 clips were placed on the cystic duct distal to the ductotomy. Ductotomy completed with scissors. Care was taken to make sure that the clips encompassed the entire diameter of the duct and that they did not encroach on any undissected tissue. The gallbladder was removed from the bed of the liver with cautery and placed in laparoscopic bag and brought out through the epigastric incision. The right upper quadrant was irrigated. Irrigant returned clear. There was no bleeding or bile leakage noted. The appendix was visible and it was unremarkable. The cecum and the transverse colon, visualized portions of the stomach and duodenum as well as the liver were unremarkable. There is no free fluid within the abdomen. At this point, fascial closure device was used to close the fascia at the epigastric incision using 0 Vicryl suture under direct laparoscopic vision. One final look at the right upper quadrant revealed it continued to be hemostatic and without bile leakage. Ports were removed under direct vision. When the sites were hemostatic, pneumoperitoneum was desufflated. Skin incisions were closed with 4-0 Monocryl in subcuticular fashion. Sterile dressings were placed. She tolerated the procedure well. There were no apparent complications. She was then transferred in stable condition to the recovery room. CHERRY FLOR MD DR: MINNA/jazz JOB#: [id number] / [id number]
--- NOTE | 2016-11-02 01:58 | RAD ---
PROCEDURE CT head without contrast dated 11/02/2016. HISTORY Transient ischemic attack. TECHNIQUE Contiguous axial imaging of the head was performed from skull base to vertex. No contrast administered.Exposure: One or more of the following individualized dose reduction techniques were utilized for this exam: 1. Automated exposure control. 2. Adjustment of the mA and/or kV according to patient size. 3. Use of iterative reconstruction technique. COMPARISON None. FINDINGS Ventricles and sulci within normal limits for age. No midline shift or mass effect. Brain parenchyma is of normal attenuation. No hemorrhage or extra-axial collection. Posterior fossa and brainstem unremarkable. Visualized paranasal sinuses and mastoid air cells are clear. No acute calvarial abnormality. IMPRESSION No evidence of acute intracranial abnormality. Electronically signed by: Octaviano Spencer (Nov 02, 2016 01:57:04)
[2016-11-02] MEDS: IV NORMAL SALINE 1000ML BAG 1,000 ML IV SCH (02:00)
[2016-11-02 04:30] LABS: BASO % 0 % (0-3); EOS % 0 % (0-3); HEMOGLOBIN 11.7 g/dL (12.0-15.5); LYMPH # 1.3 x10^3/uL (1.0-4.8); LYMPH % 17 % (24-48); MEAN CORPUSCULAR HEMOGLOBIN 25 pg (25-35); MEAN CORPUSCULAR HGB CONC 32 g/dL (31-37); MEAN CORPUSCULAR VOLUME 76 fL (79-100); MONO % 1 % (0-9); NEUT % 82 % (31-73); PLATELET COUNT 185 x10^3/uL (140-400); RED BLOOD COUNT 4.72 x10^6/uL (3.50-5.40); RED CELL DISTRIBUTION WIDTH 14.1 % (11.5-14.5); WHITE BLOOD COUNT 7.8 x10^3/uL (4.0-11.0)
[2016-11-02 04:38] LABS: INR 1.2 (0.8-1.1); PROTHROMBIN TIME PATIENT 14.7 SEC (11.7-14.0)
[2016-11-02 04:43] LABS: CALCIUM 8.5 mg/dL (8.5-10.1); CREATININE 0.8 mg/dL (0.6-1.0); GFR 84.8; POTASSIUM 4.1 mmol/L (3.5-5.1)
[2016-11-02 04:56] LABS: CHOLESTEROL/HDL RATIO 5.1
--- NOTE | 2016-11-02 07:38 | RAD ---
Intraoperative cholangiogram, 11/01/2016: History: Cholecystectomy A single spot films from surgery is present for review. Contrast has been injected into the cystic duct remnant. 0.3 minutes of fluoroscopy time was utilized. There is good flow of contrast into the duodenum at the ampulla. No filling defect is seen in the common duct to suggest a retained stone. There is reflux of contrast into a portion of the pancreatic duct which is unremarkable. The incompletely opacified intrahepatic ducts are unremarkable. IMPRESSION: No significant abnormality is detected.
--- NOTE | 2016-11-02 08:46 | CONS ---
DATE OF CONSULTATION: 11/01/2016 DATE OF SURGERY: 11/01/2016 CHIEF COMPLAINT: Abdominal pain. I used the occ med physician phone for this visit. HISTORY OF PRESENT ILLNESS: The patient is a 31-year-old female, who presents with a 2-day history of epigastric pain and right upper quadrant pain. The pain is moderate to severe. It is constant. It is a heavy, dull type of pain. It does not radiate to her back. It is associated with mild nausea. It is not associated with jaundice. PAST MEDICAL HISTORY: Diabetes mellitus type 2. PAST SURGICAL HISTORY: Tonsillectomy. SOCIAL HISTORY: Nonsmoker, nondrinker. FAMILY HISTORY: Noncontributory to this illness. MEDICATIONS AT HOME: She says she takes metformin at home. I noticed on her summary that the medications listed for her included 2 different antibiotics, hydrocodone, prednisone, and albuterol. I asked her twice about these. She says she does not take these medications. She says the only thing she takes at home is metformin. ALLERGIES: No known drug allergies. REVIEW OF SYSTEMS: CONSTITUTIONAL: Denies fevers or chills. EYES: Denies abrupt loss of vision or double vision. EARS, NOSE, MOUTH, AND THROAT: Denies loss of hearing or ringing in her ears. CARDIOVASCULAR: No chest pain or heart palpitations. RESPIRATORY: Denies cough, shortness of breath. GASTROINTESTINAL: See HPI. GENITOURINARY: No dysuria or hematuria. HEMATOLOGIC: No easy bleeding or bruising. MUSCULOSKELETAL: No new myalgias or arthralgias. DERMATOLOGIC: No new skin rashes or lesions. PSYCHIATRIC: Denies depression or anxiety. NEUROLOGIC: No headaches or seizures. PHYSICAL EXAMINATION: GENERAL: This is a well-developed, well-nourished female, in no acute distress, who speaks some Upper Sorbian, but I did use the occ med physician phone for the entire visit. She is mildly obese, with a BMI of 31.2. VITAL SIGNS: She is afebrile, with a heart rate in the 70s, respiratory rate 18, blood pressure 128/86, O2 sats 97% on room air. PSYCHIATRIC: She is alert and oriented x 3. She is cooperative, with appropriate mood and affect. NEUROLOGIC: No resting tremor. She can move all 4 extremities without difficulty. 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 EYES: Pupils are round and reactive. Sclerae are nonicteric. HEAD, EARS, NOSE, THROAT: Head is atraumatic. Mucous membranes are moist. Face is symmetric. NECK: Supple, without cervical lymphadenopathy. No supraclavicular lymphadenopathy. Neck is nontender without masses. RESPIRATORY: Respirations are nonlabored. Chest wall is nontender to palpation. She is on room air. CARDIOVASCULAR: On palpation of her right radial pulse, she has a 2+ right radial pulse. There is no pedal edema. Her pulse by palpation is regular rate and regular rhythm. ABDOMEN: Soft, nondistended. She is tender in the epigastric and right upper quadrant. DERMATOLOGIC: Exposed portions of her skin are unremarkable. LABORATORY DATA: Reviewed. IMAGING: Reviewed. ASSESSMENT: 1. Acute cholecystitis. 2. Diabetes mellitus type 2. 3. Obesity. PLAN: The patient is being taken to the operating room for laparoscopic cholecystectomy with intraoperative cholangiogram, possible open. She did ask about nonoperative treatment. We discussed that once her gallstones have become symptomatic as they have now, that foregoing surgery would involve the risk of repeated episodes of cholecystitis, cholangitis, and gallstone pancreatitis. After considering this, she desires to proceed with the procedure. Using a drawing to aid the discussion and using the occ med physician phone, we discussed the risk of bleeding, infection, need to convert to open, injury to intra-abdominal structures including hollow viscus, bile ducts, major vasculature, risk of bile leak, risk of need to convert to open, risk of retained common duct stone. Questions were answered. She desires to proceed with the procedure. PERRI FLOR MD DR: MINNA/jazz JOB#: [id number] / [id number] ARBEN Sandoval MD
[2016-11-02] MEDS ORDERED: DEXTROSE 50% 25 GM / 50ML DISP.SYRIN. IV PRN (09:45)
[2016-11-02 10:04] LABS: % SAT IRON 20 % (15-34); IRON,SERUM 56 ug/dL (50-170)
[2016-11-02] MEDS ORDERED: DOCU-27 PO (10:39)
[2016-11-02] MEDS ORDERED: OXYC1TAB7 PO (10:39)
--- NOTE | 2016-11-02 10:44 | PDOC ---
PROGRESS NOTES Chief Complaint Chief Complaint Acute cholecystitis, s/p juan POD #1 Delirium postop confused and lethargic, w. hemiparesis, after further discussion with anesthesia team, now thought to be late effect of PARALYTIC MED , given in OR echo today she is ambulatory has soreness, no stool, History of Present Illness History of Present Illness plan DC home today routine neuro consult CT head very normal [place] to follow in clinic 10 days to 2 weeks Vitals Vitals Vital Signs Date Time Temp Pulse Resp B/P Pulse Ox O2 Delivery O2 Flow Rate FiO2 11/02/16 07:00 98.0 76 18 107/63 95 Room Air 98.0 11/01/16 22:53 10 Physical Exam General: Alert, Cooperative, moderate distress, Other (confused) Heart: Regular rate Lungs: Clear Abdomen: Soft ( tender, guarding) Extremities: No cyanosis, Normal pulses Skin: No breakdown Labs LABS Laboratory Tests Test 11/01/16 14:07 11/01/16 14:10 11/01/16 16:10 11/01/16 21:09 Bedside Urine HCG, Qualitative Hcg negative (Negative) White Blood Count 9.4x10^3/uL (4.0-11.0) Red Blood Count 5.33x10^6/uL (3.50-5.40) Hemoglobin 13.4g/dL (12.0-15.5) Hematocrit 42.1% (36.0-47.0) Mean Corpuscular Volume 79fL (79-100) Mean Corpuscular Hemoglobin 25pg (25-35) Mean Corpuscular Hemoglobin Concent 32g/dL (31-37) Red Cell Distribution Width 14.4% (11.5-14.5) Platelet Count 230x10^3/uL (140-400) Neutrophils (%) (Auto) 66% (31-73) Lymphocytes (%) (Auto) 29% (24-48) Monocytes (%) (Auto) 4% (0-9) Eosinophils (%) (Auto) 1% (0-3) Basophils (%) (Auto) 0% (0-3) Neutrophils # (Auto) 6.2x10^3uL (1.8-7.7) Lymphocytes # (Auto) 2.7x10^3/uL (1.0-4.8) Monocytes # (Auto) 0.4x10^3/uL (0.0-1.1) Eosinophils # (Auto) 0.1x10^3/uL (0.0-0.7) Basophils # (Auto) 0.0x10^3/uL (0.0-0.2) Sodium Level 140mmol/L (136-145) Potassium Level 3.7mmol/L (3.5-5.1) Chloride Level 105mmol/L (98-107) Carbon Dioxide Level 23mmol/L (21-32) Anion Gap 12 (6-14) Blood Urea Nitrogen 8mg/dL (7-20) Creatinine 0.7mg/dL (0.6-1.0) Estimated GFR (Cockcroft-Gault) 98.9 BUN/Creatinine Ratio 11 (6-20) Glucose Level 105mg/dL (70-99) Calcium Level 9.3mg/dL (8.5-10.1) Total Bilirubin 0.4mg/dL (0.2-1.0) Aspartate Amino Transf (AST/SGOT) 17U/L (15-37) Alanine Aminotransferase (ALT/SGPT) 20U/L (14-59) Alkaline Phosphatase 85U/L (46-116) Total Protein 8.8g/dL (6.4-8.2) Albumin 4.0g/dL (3.4-5.0) Albumin/Globulin Ratio 0.8 (1.0-1.7) Lipase 120U/L (73-393) Urine Collection Type Unknown Urine Color Yellow Urine Clarity Clear Urine pH 5.5 Urine Specific [place] 1.020 Urine Protein Negativemg/dL (NEG-TRACE) Urine Glucose (UA) Negativemg/dL (NEG) Urine Ketones (Stick) Tracemg/dL (NEG) Urine Blood Negative (NEG) Urine Nitrite Negative (NEG) Urine Bilirubin Negative (NEG) Urine Urobilinogen Dipstick 0.2mg/dL (0.2 mg/dL) Urine Leukocyte Esterase Negative (NEG) Urine RBC 1-2/HPF (0-2) Urine WBC 1-4/HPF (0-4) Urine Squamous Epithelial Cells Few/LPF Urine Bacteria 0/HPF (0-FEW) Urine Mucus Mod/LPF Glucose (Fingerstick) 83mg/dL (70-99) Test 11/01/16 22:30 11/02/16 04:15 11/02/16 07:27 Glucose (Fingerstick) 156mg/dL (70-99) 199mg/dL (70-99) White Blood Count 7.8x10^3/uL (4.0-11.0) Red Blood Count 4.72x10^6/uL (3.50-5.40) Hemoglobin 11.7g/dL (12.0-15.5) Hematocrit 36.0% (36.0-47.0) Mean Corpuscular Volume 76fL (79-100) Mean Corpuscular Hemoglobin 25pg (25-35) Mean Corpuscular Hemoglobin Concent 32g/dL (31-37) Red Cell Distribution Width 14.1% (11.5-14.5) Platelet Count 185x10^3/uL (140-400) Neutrophils (%) (Auto) 82% (31-73) Lymphocytes (%) (Auto) 17% (24-48) Monocytes (%) (Auto) 1% (0-9) Eosinophils (%) (Auto) 0% (0-3) Basophils (%) (Auto) 0% (0-3) Neutrophils # (Auto) 6.4x10^3uL (1.8-7.7) Lymphocytes # (Auto) 1.3x10^3/uL (1.0-4.8) Monocytes # (Auto) 0.1x10^3/uL (0.0-1.1) Eosinophils # (Auto) 0.0x10^3/uL (0.0-0.7) Basophils # (Auto) 0.0x10^3/uL (0.0-0.2) Prothrombin Time 14.7SEC (11.7-14.0) Prothromb Time International Ratio 1.2 (0.8-1.1) Sodium Level 138mmol/L (136-145) Potassium Level 4.1mmol/L (3.5-5.1) Chloride Level 106mmol/L (98-107) Carbon Dioxide Level 20mmol/L (21-32) Anion Gap 12 (6-14) Blood Urea Nitrogen 10mg/dL (7-20) Creatinine 0.8mg/dL (0.6-1.0) Estimated GFR (Cockcroft-Gault) 84.8 Glucose Level 228mg/dL (70-99) Calcium Level 8.5mg/dL (8.5-10.1) Iron Level 56ug/dL (50-170) Total Iron Binding Capacity 276ug/dL (250-450) Iron Saturation 20% (15-34) Triglycerides Level 57mg/dL (0-150) Cholesterol Level 158mg/dL (0-200) LDL Cholesterol, Calculated 116mg/dL (0-100) VLDL Cholesterol, Calculated 11mg/dL (0-40) HDL Cholesterol 31mg/dL (40-60) Cholesterol/HDL Ratio 5.1 Assessment and Plan Assessmemt and Plan Problems Medical Problems: (1) Acute cholecystitis Status: Acute Problems: Comment Review of Relevant I have reviewed the following items glen (where applicable) has been applied. Labs Laboratory Tests Test 11/01/16 14:07 11/01/16 14:10 11/01/16 16:10 11/01/16 21:09 Bedside Urine HCG, Qualitative Hcg negative (Negative) White Blood Count 9.4x10^3/uL (4.0-11.0) Red Blood Count 5.33x10^6/uL (3.50-5.40) Hemoglobin 13.4g/dL (12.0-15.5) Hematocrit 42.1% (36.0-47.0) Mean Corpuscular Volume 79fL (79-100) Mean Corpuscular Hemoglobin 25pg (25-35) Mean Corpuscular Hemoglobin Concent 32g/dL (31-37) Red Cell Distribution Width 14.4% (11.5-14.5) Platelet Count 230x10^3/uL (140-400) Neutrophils (%) (Auto) 66% (31-73) Lymphocytes (%) (Auto) 29% (24-48) Monocytes (%) (Auto) 4% (0-9) Eosinophils (%) (Auto) 1% (0-3) Basophils (%) (Auto) 0% (0-3) Neutrophils # (Auto) 6.2x10^3uL (1.8-7.7) Lymphocytes # (Auto) 2.7x10^3/uL (1.0-4.8) Monocytes # (Auto) 0.4x10^3/uL (0.0-1.1) Eosinophils # (Auto) 0.1x10^3/uL (0.0-0.7) Basophils # (Auto) 0.0x10^3/uL (0.0-0.2) Sodium Level 140mmol/L (136-145) Potassium Level 3.7mmol/L (3.5-5.1) Chloride Level 105mmol/L (98-107) Carbon Dioxide Level 23mmol/L (21-32) Anion Gap 12 (6-14) Blood Urea Nitrogen 8mg/dL (7-20) Creatinine 0.7mg/dL (0.6-1.0) Estimated GFR (Cockcroft-Gault) 98.9 BUN/Creatinine Ratio 11 (6-20) Glucose Level 105mg/dL (70-99) Calcium Level 9.3mg/dL (8.5-10.1) Total Bilirubin 0.4mg/dL (0.2-1.0) Aspartate Amino Transf (AST/SGOT) 17U/L (15-37) Alanine Aminotransferase (ALT/SGPT) 20U/L (14-59) Alkaline Phosphatase 85U/L (46-116) Total Protein 8.8g/dL (6.4-8.2) Albumin 4.0g/dL (3.4-5.0) Albumin/Globulin Ratio 0.8 (1.0-1.7) Lipase 120U/L (73-393) Urine Collection Type Unknown Urine Color Yellow Urine Clarity Clear Urine pH 5.5 Urine Specific [place] 1.020 Urine Protein Negativemg/dL (NEG-TRACE) Urine Glucose (UA) Negativemg/dL (NEG) Urine Ketones (Stick) Tracemg/dL (NEG) Urine Blood Negative (NEG) Urine Nitrite Negative (NEG) Urine Bilirubin Negative (NEG) Urine Urobilinogen Dipstick 0.2mg/dL (0.2 mg/dL) Urine Leukocyte Esterase Negative (NEG) Urine RBC 1-2/HPF (0-2) Urine WBC 1-4/HPF (0-4) Urine Squamous Epithelial Cells Few/LPF Urine Bacteria 0/HPF (0-FEW) Urine Mucus Mod/LPF Glucose (Fingerstick) 83mg/dL (70-99) Test 11/01/16 22:30 11/02/16 04:15 11/02/16 07:27 Glucose (Fingerstick) 156mg/dL (70-99) 199mg/dL (70-99) White Blood Count 7.8x10^3/uL (4.0-11.0) Red Blood Count 4.72x10^6/uL (3.50-5.40) Hemoglobin 11.7g/dL (12.0-15.5) Hematocrit 36.0% (36.0-47.0) Mean Corpuscular Volume 76fL (79-100) Mean Corpuscular Hemoglobin 25pg (25-35) Mean Corpuscular Hemoglobin Concent 32g/dL (31-37) Red Cell Distribution Width 14.1% (11.5-14.5) Platelet Count 185x10^3/uL (140-400) Neutrophils (%) (Auto) 82% (31-73) Lymphocytes (%) (Auto) 17% (24-48) Monocytes (%) (Auto) 1% (0-9) Eosinophils (%) (Auto) 0% (0-3) Basophils (%) (Auto) 0% (0-3) Neutrophils # (Auto) 6.4x10^3uL (1.8-7.7) Lymphocytes # (Auto) 1.3x10^3/uL (1.0-4.8) Monocytes # (Auto) 0.1x10^3/uL (0.0-1.1) Eosinophils # (Auto) 0.0x10^3/uL (0.0-0.7) Basophils # (Auto) 0.0x10^3/uL (0.0-0.2) Prothrombin Time 14.7SEC (11.7-14.0) Prothromb Time International Ratio 1.2 (0.8-1.1) Sodium Level 138mmol/L (136-145) Potassium Level 4.1mmol/L (3.5-5.1) Chloride Level 106mmol/L (98-107) Carbon Dioxide Level 20mmol/L (21-32) Anion Gap 12 (6-14) Blood Urea Nitrogen 10mg/dL (7-20) Creatinine 0.8mg/dL (0.6-1.0) Estimated GFR (Cockcroft-Gault) 84.8 Glucose Level 228mg/dL (70-99) Calcium Level 8.5mg/dL (8.5-10.1) Iron Level 56ug/dL (50-170) Total Iron Binding Capacity 276ug/dL (250-450) Iron Saturation 20% (15-34) Triglycerides Level 57mg/dL (0-150) Cholesterol Level 158mg/dL (0-200) LDL Cholesterol, Calculated 116mg/dL (0-100) VLDL Cholesterol, Calculated 11mg/dL (0-40) HDL Cholesterol 31mg/dL (40-60) Cholesterol/HDL Ratio 5.1 Laboratory Tests Test 11/01/16 14:07 11/01/16 14:10 11/01/16 16:10 11/01/16 21:09 Bedside Urine HCG, Qualitative Hcg negative (Negative) White Blood Count 9.4x10^3/uL (4.0-11.0) Red Blood Count 5.33x10^6/uL (3.50-5.40) Hemoglobin 13.4g/dL (12.0-15.5) Hematocrit 42.1% (36.0-47.0) Mean Corpuscular Volume 79fL (79-100) Mean Corpuscular Hemoglobin 25pg (25-35) Mean Corpuscular Hemoglobin Concent 32g/dL (31-37) Red Cell Distribution Width 14.4% (11.5-14.5) Platelet Count 230x10^3/uL (140-400) Neutrophils (%) (Auto) 66% (31-73) Lymphocytes (%) (Auto) 29% (24-48) Monocytes (%) (Auto) 4% (0-9) Eosinophils (%) (Auto) 1% (0-3) Basophils (%) (Auto) 0% (0-3) Neutrophils # (Auto) 6.2x10^3uL (1.8-7.7) Lymphocytes # (Auto) 2.7x10^3/uL (1.0-4.8) Monocytes # (Auto) 0.4x10^3/uL (0.0-1.1) Eosinophils # (Auto) 0.1x10^3/uL (0.0-0.7) Basophils # (Auto) 0.0x10^3/uL (0.0-0.2) Sodium Level 140mmol/L (136-145) Potassium Level 3.7mmol/L (3.5-5.1) Chloride Level 105mmol/L (98-107) Carbon Dioxide Level 23mmol/L (21-32) Anion Gap 12 (6-14) Blood Urea Nitrogen 8mg/dL (7-20) Creatinine 0.7mg/dL (0.6-1.0) Estimated GFR (Cockcroft-Gault) 98.9 BUN/Creatinine Ratio 11 (6-20) Glucose Level 105mg/dL (70-99) Calcium Level 9.3mg/dL (8.5-10.1) Total Bilirubin 0.4mg/dL (0.2-1.0) Aspartate Amino Transf (AST/SGOT) 17U/L (15-37) Alanine Aminotransferase (ALT/SGPT) 20U/L (14-59) Alkaline Phosphatase 85U/L (46-116) Total Protein 8.8g/dL (6.4-8.2) Albumin 4.0g/dL (3.4-5.0) Albumin/Globulin Ratio 0.8 (1.0-1.7) Lipase 120U/L (73-393) Urine Collection Type Unknown Urine Color Yellow Urine Clarity Clear Urine pH 5.5 Urine Specific [place] 1.020 Urine Protein Negativemg/dL (NEG-TRACE) Urine Glucose (UA) Negativemg/dL (NEG) Urine Ketones (Stick) Tracemg/dL (NEG) Urine Blood Negative (NEG) Urine Nitrite Negative (NEG) Urine Bilirubin Negative (NEG) Urine Urobilinogen Dipstick 0.2mg/dL (0.2 mg/dL) Urine Leukocyte Esterase Negative (NEG) Urine RBC 1-2/HPF (0-2) Urine WBC 1-4/HPF (0-4) Urine Squamous Epithelial Cells Few/LPF Urine Bacteria 0/HPF (0-FEW) Urine Mucus Mod/LPF Glucose (Fingerstick) 83mg/dL (70-99) Test 11/01/16 22:30 11/02/16 04:15 11/02/16 07:27 Glucose (Fingerstick) 156mg/dL (70-99) 199mg/dL (70-99) White Blood Count 7.8x10^3/uL (4.0-11.0) Red Blood Count 4.72x10^6/uL (3.50-5.40) Hemoglobin 11.7g/dL (12.0-15.5) Hematocrit 36.0% (36.0-47.0) Mean Corpuscular Volume 76fL (79-100) Mean Corpuscular Hemoglobin 25pg (25-35) Mean Corpuscular Hemoglobin Concent 32g/dL (31-37) Red Cell Distribution Width 14.1% (11.5-14.5) Platelet Count 185x10^3/uL (140-400) Neutrophils (%) (Auto) 82% (31-73) Lymphocytes (%) (Auto) 17% (24-48) Monocytes (%) (Auto) 1% (0-9) Eosinophils (%) (Auto) 0% (0-3) Basophils (%) (Auto) 0% (0-3) Neutrophils # (Auto) 6.4x10^3uL (1.8-7.7) Lymphocytes # (Auto) 1.3x10^3/uL (1.0-4.8) Monocytes # (Auto) 0.1x10^3/uL (0.0-1.1) Eosinophils # (Auto) 0.0x10^3/uL (0.0-0.7) Basophils # (Auto) 0.0x10^3/uL (0.0-0.2) Prothrombin Time 14.7SEC (11.7-14.0) Prothromb Time International Ratio 1.2 (0.8-1.1) Sodium Level 138mmol/L (136-145) Potassium Level 4.1mmol/L (3.5-5.1) Chloride Level 106mmol/L (98-107) Carbon Dioxide Level 20mmol/L (21-32) Anion Gap 12 (6-14) Blood Urea Nitrogen 10mg/dL (7-20) Creatinine 0.8mg/dL (0.6-1.0) Estimated GFR (Cockcroft-Gault) 84.8 Glucose Level 228mg/dL (70-99) Calcium Level 8.5mg/dL (8.5-10.1) Iron Level 56ug/dL (50-170) Total Iron Binding Capacity 276ug/dL (250-450) Iron Saturation 20% (15-34) Triglycerides Level 57mg/dL (0-150) Cholesterol Level 158mg/dL (0-200) LDL Cholesterol, Calculated 116mg/dL (0-100) VLDL Cholesterol, Calculated 11mg/dL (0-40) HDL Cholesterol 31mg/dL (40-60) Cholesterol/HDL Ratio 5.1 Medications Current Medications Fentanyl Citrate 50 mcg 50 mcg PRN Q15MIN PRN IV PAIN GREATER THAN 3/10 Last administered on 11/01/16 15:10; Start 11/01/16 at 15:15; Stop 11/02/16 at 15:14 Sodium Chloride (Iv Sodium Chloride 0.9% 1000ml Bag) 1,000 ml @ 1,000 mls/hr Q1H IV Last administered on 11/01/16 15:10; Start 11/01/16 at 15:01; Stop at 16:00; Status DC Ondansetron HCl (Zofran) 4 mg 1X ONCE IV Last administered on 11/01/16 15:11; Start 11/01/16 at 15:15; Stop 11/01/16 at 15:16; Status DC Famotidine (Pepcid) 20 mg 1X ONCE IVP Last administered on 11/01/16 15:11; Start 11/01/16 at 15:15; Stop 11/01/16 at 15:16; Status DC Ondansetron HCl (Zofran) 4 mg PRN Q8HRS PRN IV NAUSEA/VOMITING; Start 11/01/16 at 17:45; Stop 11/02/16 at 17:44 Fentanyl Citrate 50 mcg 50 mcg PRN Q2HR PRN IV PAIN; Start 11/01/16 at 17:45; Stop 11/02/16 at 17:44 Sodium Chloride (Iv Sodium Chloride 0.9% 1000ml Bag) 1,000 ml @ 125 mls/hr Q8H IV ; Start 11/01/16 at 18:00; Stop 11/02/16 at 17:59 Fentanyl Citrate (Fentanyl 2ml Vial) 25 mcg PRN Q5MIN PRN IV MILD PAIN; Start 11/01/16 at 20:00; Stop 11/02/16 at 19:59 Fentanyl Citrate (Fentanyl 2ml Vial) 50 mcg PRN Q5MIN PRN IV MODERATE PAIN Last administered on 11/01/16 23:12; Start 11/01/16 at 20:00; Stop 11/02/16 at 19: 59 Morphine Sulfate 1 mg 1 mg PRN Q10MIN PRN IV SEVERE PAIN; Start 11/01/16 at 20: 00; Stop 11/02/16 at 19:59 Lactated Ringer's (Iv Lactated Ringers) 1,000 ml @ 0 mls/hr Q0M IV Last administered on 11/01/16 21:30; Start 11/01/16 at 19:56; Stop 11/02/16 at 07:55; Status DC Lidocaine HCl 2 ml 1X PRN PRN ID IV START; Start 11/01/16 at 20:00; Stop at 19:59 Hydromorphone HCl (Dilaudid) 0.5 mg PRN Q10MIN PRN IV SEV PAIN,Second choice; Start 11/01/16 at 20:00; Stop 11/02/16 at 19:59 Prochlorperazine Edisylate (Compazine) 5 mg PACU PRN PRN IV NAUSEA; Start at 20:00; Stop 11/02/16 at 19:59 Cellulose 1 each STK-MED ONCE .ROUTE ; Start 11/01/16 at 20:28; Stop 11/01/16 at 20:29; Status DC Bupivacaine HCl/ Epinephrine Bitart (Sensorcain-Mpf Epi 0.5%-1:[id number]) 30 ml STK -MED ONCE .ROUTE Last administered on 11/01/16 21:39; Start 11/01/16 at 20:28; Stop 11/01/16 at 20:29; Status DC Iohexol (Omnipaque 300 Mg/ml) 50 ml STK-MED ONCE .ROUTE Last administered on 21:39; Start 11/01/16 at 20:28; Stop 11/01/16 at 20:29; Status DC Dexamethasone Sodium Phosphate (Decadron) 20 mg STK-MED ONCE .ROUTE ; Start 11/01 at 20:42; Stop 11/01/16 at 20:43; Status DC Ondansetron HCl 4 mg 4 mg STK-MED ONCE .ROUTE ; Start 11/01/16 at 20:42; Stop 11/01/16 at 20:43; Status DC Propofol (Diprivan) 20 ml @ As Directed STK-MED ONCE IV ; Start 11/01/16 at 20:42 ; Stop 11/01/16 at 20:43; Status DC Lidocaine HCl 100 mg STK-MED ONCE .ROUTE ; Start 11/01/16 at 20:42; Stop 11/01/16 at 20:43; Status DC Midazolam HCl (Versed) 2 mg STK-MED ONCE .ROUTE ; Start 11/01/16 at 20:42; Stop 11/01/16 at 20:43; Status DC Fentanyl Citrate (Fentanyl 2ml Vial) 100 mcg STK-MED ONCE .ROUTE ; Start at 20:42; Stop 11/01/16 at 20:43; Status DC Rocuronium [place] 50 mg 50 mg STK-MED ONCE .ROUTE ; Start 11/01/16 at 20:42; Stop 11/01/16 at 20:43; Status DC Cefazolin Sodium/ Dextrose (Ancef 2gm Premix) 50 ml @ 100 mls/hr 1X ONCE IV Last administered on 11/01/16t 21:20; Start 11/01/16 at 21:00; Stop 11/01/16 at 21: 29; Status DC Succinylcholine Chloride 200 mg 200 mg STK-MED ONCE .ROUTE ; Start 11/01/16 at 20 :58; Stop 11/01/16 at 20:59; Status DC Cefazolin Sodium/ Dextrose (Ancef 2gm Premix) 50 ml @ As Directed STK-MED ONCE IV ; Start 11/01/16 at 21:02; Stop 11/01/16 at 21:03; Status DC Oxycodone/ Acetaminophen (Percocet 5/325) 2 tab PRN Q4HRS PRN PO PAIN Last administered on 11/02/16t 05:43; Start 11/01/16 at 21:15 Hydromorphone HCl (Dilaudid) 0.4 mg PRN Q2HR PRN IVP PAIN; Start 11/01/16 at 21: 15 Ketorolac Tromethamine (Toradol For Or Only) 30 mg STK-MED ONCE INJ ; Start 11/01 at 21:56; Stop 11/01/16 at 21:57; Status DC Glycopyrrolate (Robinul) 1 mg STK-MED ONCE .ROUTE ; Start 11/01/16 at 21:56; Stop 11/01/16 at 21:57; Status DC Neostigmine Methylsulfate 5 mg STK-MED ONCE .ROUTE ; Start 11/01/16 at 21:56; Stop 11/01/16 at 21:57; Status DC Desflurane (Suprane) 30 ml STK-MED ONCE IH ; Start 11/01/16 at 21:59; Stop at 22:00; Status DC Epinephrine (S2 Racepinephrine) 0.5 ml STK-MED ONCE .ROUTE ; Start 11/01/16 at 22 :33; Stop 11/01/16 at 22:34; Status DC Midazolam HCl (Versed) 2 mg STK-MED ONCE .ROUTE ; Start 11/01/16 at 22:36; Stop 11/01/16 at 22:37; Status DC Aspirin (Ecotrin) 325 mg 1X ONCE PO Last administered on 11/02/16 00:24; Start 11/01/16 at 23:55; Stop 11/01/16 at 23:56; Status DC Midazolam HCl (Versed) 2 mg 1X PACU IV ; Start 11/01/16 at 23:45; Stop 11/01/16 at 23:47; Status DC Midazolam HCl (Versed) 2 mg 1X PACU PRN IV AGITATION Last administered on 22:53; Start 11/01/16 at 23:55 Insulin Aspart (Novolog) 0-7 UNITS TIDWMEALS SQ ; Start 11/02/16 at 12:00 Dextrose 12.5 gm PRN Q15MIN PRN IV SEE COMMENTS; Start 11/02/16 at 09:45 Polysaccharide Iron Complex (Niferex 150) 150 mg DAILY PO ; Start 11/02/16 at 10: 45 Docusate Sodium (Colace) 100 mg DAILY PO ; Start 11/02/16 at 10:45; Status UNV Polyethylene Glycol (miraLAX PACKET) 17 gm 1X ONCE PO ; Start 11/02/16 at 10:45 ; Stop 11/02/16 at 10:46; Status UNV Active Scripts Active Colace (Docusate Sodium) 100 Mg Capsule 100 Mg PO BID Oxycodone-Acetaminophen 5-325 (Oxycodone Hcl/Acetaminophen) 1 Each Tablet 1 Tab PO PRN Q4HRS PRN Reported Metformin Hcl 500 Mg Tablet 500 Mg PO BIDWMEALS Vitals/I & O Vital Sign - Last 24 Hours 11/01/16 11/01/16 11/01/16 11/01/16 13:55 14:09 14:55 15:55 Temp 98.3 98.3 Pulse 84 92 91 89 Resp 20 18 20 20 B/P 120/77 120/77 116/68 111/69 Pulse Ox 100 98 98 98 O2 Delivery Room Air Room Air Room Air Room Air 11/01/16 11/01/16 11/01/16 11/01/16 16:18 19:30 21:20 22:23 Temp 97.7 97.5 97.7 97.5 Pulse 71 79 70 120 Resp 20 18 20 16 B/P 116/73 128/86 142/81 156/83 Pulse Ox 98 97 100 100 O2 Delivery Room Air Room Air Room Air Simple Mask O2 Flow Rate 10 11/01/16 11/01/16 11/01/16 11/01/16 22:30 22:38 22:50 22:53 Pulse 98 86 Resp 16 16 16 B/P 165/67 146/81 Pulse Ox 100 100 O2 Delivery Mask Simple Mask Simple Mask O2 Flow Rate 10 10 10 11/01/16 11/01/16 11/01/16 11/01/16 23:08 23:12 23:23 23:33 Pulse 74 64 Resp 16 4 16 B/P 134/75 106/57 Pulse Ox 100 98 O2 Delivery Room Air Room Air Room Air Room Air 11/01/16 11/01/16 11/02/16 11/02/16 23:38 23:51 00:00 00:00 Temp 97.7 97.7 Pulse 64 64 62 Resp 16 16 18 B/P 102/49 124/77 121/70 Pulse Ox 98 98 95 O2 Delivery Room Air Room Air Room Air Room Air 11/02/16 11/02/16 11/02/16 11/02/16 00:15 00:23 00:30 00:45 Pulse 59 103 76 Resp 18 16 18 B/P 128/78 131/74 119/67 Pulse Ox 96 95 95 O2 Delivery Room Air Room Air Room Air Room Air 11/02/16 11/02/16 11/02/16 11/02/16 01:15 01:30 01:45 02:45 Pulse 66 84 66 Resp 18 16 18 18 B/P 117/65 137/62 134/64 Pulse Ox 94 97 95 O2 Delivery Room Air Room Air Room Air Room Air 11/02/16 11/02/16 05:43 07:00 Temp 98.0 98.0 Pulse 76 Resp 16 18 B/P 107/63 Pulse Ox 95 O2 Delivery Room Air Room Air Intake and Output 11/01/16 11/01/16 11/02/16 15:00 23:00 07:00 Intake Total 1000 ml 210 ml Balance 1000 ml 210 ml MAGO HAIRSTON MD Nov 02, 2016 10:44
[2016-11-02] MEDS ORDERED: POLYETHYLENE GLYCOL 3350 17 GM PACKET. PO ONE (10:45)
[2016-11-02] MEDS ORDERED: DOCUSATE SODIUM 100 MG CAPSULE PO SCH (10:45)
[2016-11-02] MEDS ORDERED: IRON POLYSACCHARIDE COMPLEX 150 MG CAPSULE PO SCH (10:45)
[2016-11-02] MEDS ORDERED: INSULIN ASPART 300 UNITS/3 ML INSULN.PEN SQ SCH (12:00)
--- NOTE | 2016-11-02 12:53 | CARD ---
APPROVED REPORT EXAM: Two-dimensional and M-mode echocardiogram with Doppler, color Doppler with contrast. Other Information Quality : Average Rhythm : NSR INDICATION CVA/TIA Echo Enhancing Agent Indication: Rule Out Septal Defect Agent/Amount Used: Agitated Saline 8mL 2D DIMENSIONS RVDd2.4 (2.9-3.5cm)Left Atrium(2D)3.1 (1.6-4.0cm) IVSd0.8 (0.7-1.1cm)Aortic Root(2D)2.5 (2.0-3.7cm) LVDd4.8 (3.9-5.9cm)LVOT Diameter2.0 (1.8-2.4cm) PWd0.8 (0.7-1.1cm)LVDs2.8 (2.5-4.0cm) FS (%) 41.2 %SV76.0 ml LVEF(%)72.0 (>50%) Aortic Valve AoV Peak Hank.134.4cm/sAoV VTI24.7cm AO Peak GR.7.2mmHgLVOT Peak Hank.91.9cm/s LVOT VTI 19.23cmAO Mean GR.4mmHg ADIS (VMAX)2.59ms8JAR (VTI)2.41cm2 Mitral Valve MV E Jlrcnaez35.5cm/sMV DECEL ZUVI665sk MV A Hrlyrxzx21.5cm/sMV E Mean Gr.2mmHg MV VHA42qgI/A Ratio1.2 MV A Kadhjijs642rmXMV (PHT)3.63cm2 TDI E/Lateral E'4.1E/Medial E'5.2 Pulmonary Valve PV Peak Uexvcbtj24.4cm/sPV Peak Grad.3mmHg RVOT VTI18.6cm Tricuspid Valve TR P. Vreuqhun176qq/sRAP IBBOTRWD0yqIg TR Peak Gr.28yfHtBPMO57slRi Pulmonary Vein S1 Gqldcqem27.9cm/sD2 Ytsqtnam17.1cm/s LEFT VENTRICLE The left ventricle is normal size. There is normal left ventricular wall thickness. Left ventricle sy stolic function is normal. The Ejection Fraction is 65-70%. There is normal LV segmental wall motion. The left ventricular diastolic function and filling is normal for age. RIGHT VENTRICLE The right ventricle is normal size. The right ventricular systolic function is normal. ATRIA The left atrium size is normal. The right atrium size is normal. The interatrial septum is intact wit h no evidence for an atrial septal defect or patent foramen ovale as noted on 2-D or Doppler imaging. Injection of bubbles documented no interatrial shunt. AORTIC VALVE The aortic valve is normal in structure and function. The aortic valve is trileaflet. Doppler and Col or Flow revealed no significant aortic regurgitation. There is no significant aortic valvular stenosi s. MITRAL VALVE The mitral valve is normal in structure and function. There is no mitral valve stenosis. Doppler and Color Flow revealed no mitral valve regurgitation noted. TRICUSPID VALVE The tricuspid valve is normal in structure and function. Doppler and Color Flow revealed mild tricusp id regurgitation. The PA pressure was estimated at 29 mmHg. There is no tricuspid valve stenosis. PULMONIC VALVE The pulmonary valve is normal in structure and function. Doppler and Color Flow revealed trace pulmon ic valvular regurgitation. There is no pulmonic valvular stenosis. GREAT VESSELS The aortic root is normal in size. Normal pulmonary venous flow (Doppler). IVC was not visualzied due to recent surgery site. PERICARDIAL EFFUSION There is no evidence of significant pericardial effusion. Critical Notification Critical Value: No <Conclusion> Left ventricle systolic function is normal. The Ejection Fraction is 65-70%. There is normal LV segmental wall motion. Mild tricuspid regurgitation. The PA pressure was estimated at 29 mmHg. There is no evidence of significant pericardial effusion. Injection of bubbles documented no interatrial shunt.
--- NOTE | 2016-11-02 13:52 | PDOC ---
SURGICAL PROGRESS NOTE Subjective spoke with patient using healthcare interpreter phone she is having incisional pain to epigastric incision tolerating diet questions about "what is going on with her brain", someone talked to her family but not her about it Vital Signs Vital Signs Date Time Temp Pulse Resp B/P Pulse Ox O2 Delivery O2 Flow Rate FiO2 11/02/16 12:25 18 Room Air 11/02/16 11:00 66 114/65 96 11/02/16 07:00 98.0 98.0 11/01/16 22:53 10 I&O Intake and Output 11/02/16 07:00 Intake Total 1210 ml Balance 1210 ml Intake Oral 210 ml IV Total 1000 ml General: Alert, Oriented X3, Cooperative, No acute distress Abdomen: Soft, Other (incisional TTP to epigastric incision, lap dressings dry ) Labs Laboratory Tests Test 11/01/16 14:07 11/01/16 14:10 11/01/16 16:10 11/01/16 21:09 Bedside Urine HCG, Qualitative Hcg negative (Negative) White Blood Count 9.4x10^3/uL (4.0-11.0) Red Blood Count 5.33x10^6/uL (3.50-5.40) Hemoglobin 13.4g/dL (12.0-15.5) Hematocrit 42.1% (36.0-47.0) Mean Corpuscular Volume 79fL (79-100) Mean Corpuscular Hemoglobin 25pg (25-35) Mean Corpuscular Hemoglobin Concent 32g/dL (31-37) Red Cell Distribution Width 14.4% (11.5-14.5) Platelet Count 230x10^3/uL (140-400) Neutrophils (%) (Auto) 66% (31-73) Lymphocytes (%) (Auto) 29% (24-48) Monocytes (%) (Auto) 4% (0-9) Eosinophils (%) (Auto) 1% (0-3) Basophils (%) (Auto) 0% (0-3) Neutrophils # (Auto) 6.2x10^3uL (1.8-7.7) Lymphocytes # (Auto) 2.7x10^3/uL (1.0-4.8) Monocytes # (Auto) 0.4x10^3/uL (0.0-1.1) Eosinophils # (Auto) 0.1x10^3/uL (0.0-0.7) Basophils # (Auto) 0.0x10^3/uL (0.0-0.2) Sodium Level 140mmol/L (136-145) Potassium Level 3.7mmol/L (3.5-5.1) Chloride Level 105mmol/L (98-107) Carbon Dioxide Level 23mmol/L (21-32) Anion Gap 12 (6-14) Blood Urea Nitrogen 8mg/dL (7-20) Creatinine 0.7mg/dL (0.6-1.0) Estimated GFR (Cockcroft-Gault) 98.9 BUN/Creatinine Ratio 11 (6-20) Glucose Level 105mg/dL (70-99) Calcium Level 9.3mg/dL (8.5-10.1) Total Bilirubin 0.4mg/dL (0.2-1.0) Aspartate Amino Transf (AST/SGOT) 17U/L (15-37) Alanine Aminotransferase (ALT/SGPT) 20U/L (14-59) Alkaline Phosphatase 85U/L (46-116) Total Protein 8.8g/dL (6.4-8.2) Albumin 4.0g/dL (3.4-5.0) Albumin/Globulin Ratio 0.8 (1.0-1.7) Lipase 120U/L (73-393) Urine Collection Type Unknown Urine Color Yellow Urine Clarity Clear Urine pH 5.5 Urine Specific [place] 1.020 Urine Protein Negativemg/dL (NEG-TRACE) Urine Glucose (UA) Negativemg/dL (NEG) Urine Ketones (Stick) Tracemg/dL (NEG) Urine Blood Negative (NEG) Urine Nitrite Negative (NEG) Urine Bilirubin Negative (NEG) Urine Urobilinogen Dipstick 0.2mg/dL (0.2 mg/dL) Urine Leukocyte Esterase Negative (NEG) Urine RBC 1-2/HPF (0-2) Urine WBC 1-4/HPF (0-4) Urine Squamous Epithelial Cells Few/LPF Urine Bacteria 0/HPF (0-FEW) Urine Mucus Mod/LPF Glucose (Fingerstick) 83mg/dL (70-99) Test 11/01/16 22:30 11/02/16 04:15 11/02/16 07:27 11/02/16 11:00 Glucose (Fingerstick) 156mg/dL (70-99) 199mg/dL (70-99) 147mg/dL (70-99) White Blood Count 7.8x10^3/uL (4.0-11.0) Red Blood Count 4.72x10^6/uL (3.50-5.40) Hemoglobin 11.7g/dL (12.0-15.5) Hematocrit 36.0% (36.0-47.0) Mean Corpuscular Volume 76fL (79-100) Mean Corpuscular Hemoglobin 25pg (25-35) Mean Corpuscular Hemoglobin Concent 32g/dL (31-37) Red Cell Distribution Width 14.1% (11.5-14.5) Platelet Count 185x10^3/uL (140-400) Neutrophils (%) (Auto) 82% (31-73) Lymphocytes (%) (Auto) 17% (24-48) Monocytes (%) (Auto) 1% (0-9) Eosinophils (%) (Auto) 0% (0-3) Basophils (%) (Auto) 0% (0-3) Neutrophils # (Auto) 6.4x10^3uL (1.8-7.7) Lymphocytes # (Auto) 1.3x10^3/uL (1.0-4.8) Monocytes # (Auto) 0.1x10^3/uL (0.0-1.1) Eosinophils # (Auto) 0.0x10^3/uL (0.0-0.7) Basophils # (Auto) 0.0x10^3/uL (0.0-0.2) Prothrombin Time 14.7SEC (11.7-14.0) Prothromb Time International Ratio 1.2 (0.8-1.1) Sodium Level 138mmol/L (136-145) Potassium Level 4.1mmol/L (3.5-5.1) Chloride Level 106mmol/L (98-107) Carbon Dioxide Level 20mmol/L (21-32) Anion Gap 12 (6-14) Blood Urea Nitrogen 10mg/dL (7-20) Creatinine 0.8mg/dL (0.6-1.0) Estimated GFR (Cockcroft-Gault) 84.8 Glucose Level 228mg/dL (70-99) Calcium Level 8.5mg/dL (8.5-10.1) Iron Level 56ug/dL (50-170) Total Iron Binding Capacity 276ug/dL (250-450) Iron Saturation 20% (15-34) Triglycerides Level 57mg/dL (0-150) Cholesterol Level 158mg/dL (0-200) LDL Cholesterol, Calculated 116mg/dL (0-100) VLDL Cholesterol, Calculated 11mg/dL (0-40) HDL Cholesterol 31mg/dL (40-60) Cholesterol/HDL Ratio 5.1 Laboratory Tests Test 11/01/16 14:07 11/01/16 14:10 11/01/16 16:10 11/01/16 21:09 Bedside Urine HCG, Qualitative Hcg negative (Negative) White Blood Count 9.4x10^3/uL (4.0-11.0) Red Blood Count 5.33x10^6/uL (3.50-5.40) Hemoglobin 13.4g/dL (12.0-15.5) Hematocrit 42.1% (36.0-47.0) Mean Corpuscular Volume 79fL (79-100) Mean Corpuscular Hemoglobin 25pg (25-35) Mean Corpuscular Hemoglobin Concent 32g/dL (31-37) Red Cell Distribution Width 14.4% (11.5-14.5) Platelet Count 230x10^3/uL (140-400) Neutrophils (%) (Auto) 66% (31-73) Lymphocytes (%) (Auto) 29% (24-48) Monocytes (%) (Auto) 4% (0-9) Eosinophils (%) (Auto) 1% (0-3) Basophils (%) (Auto) 0% (0-3) Neutrophils # (Auto) 6.2x10^3uL (1.8-7.7) Lymphocytes # (Auto) 2.7x10^3/uL (1.0-4.8) Monocytes # (Auto) 0.4x10^3/uL (0.0-1.1) Eosinophils # (Auto) 0.1x10^3/uL (0.0-0.7) Basophils # (Auto) 0.0x10^3/uL (0.0-0.2) Sodium Level 140mmol/L (136-145) Potassium Level 3.7mmol/L (3.5-5.1) Chloride Level 105mmol/L (98-107) Carbon Dioxide Level 23mmol/L (21-32) Anion Gap 12 (6-14) Blood Urea Nitrogen 8mg/dL (7-20) Creatinine 0.7mg/dL (0.6-1.0) Estimated GFR (Cockcroft-Gault) 98.9 BUN/Creatinine Ratio 11 (6-20) Glucose Level 105mg/dL (70-99) Calcium Level 9.3mg/dL (8.5-10.1) Total Bilirubin 0.4mg/dL (0.2-1.0) Aspartate Amino Transf (AST/SGOT) 17U/L (15-37) Alanine Aminotransferase (ALT/SGPT) 20U/L (14-59) Alkaline Phosphatase 85U/L (46-116) Total Protein 8.8g/dL (6.4-8.2) Albumin 4.0g/dL (3.4-5.0) Albumin/Globulin Ratio 0.8 (1.0-1.7) Lipase 120U/L (73-393) Urine Collection Type Unknown Urine Color Yellow Urine Clarity Clear Urine pH 5.5 Urine Specific [place] 1.020 Urine Protein Negativemg/dL (NEG-TRACE) Urine Glucose (UA) Negativemg/dL (NEG) Urine Ketones (Stick) Tracemg/dL (NEG) Urine Blood Negative (NEG) Urine Nitrite Negative (NEG) Urine Bilirubin Negative (NEG) Urine Urobilinogen Dipstick 0.2mg/dL (0.2 mg/dL) Urine Leukocyte Esterase Negative (NEG) Urine RBC 1-2/HPF (0-2) Urine WBC 1-4/HPF (0-4) Urine Squamous Epithelial Cells Few/LPF Urine Bacteria 0/HPF (0-FEW) Urine Mucus Mod/LPF Glucose (Fingerstick) 83mg/dL (70-99) Test 11/01/16 22:30 11/02/16 04:15 11/02/16 07:27 11/02/16 11:00 Glucose (Fingerstick) 156mg/dL (70-99) 199mg/dL (70-99) 147mg/dL (70-99) White Blood Count 7.8x10^3/uL (4.0-11.0) Red Blood Count 4.72x10^6/uL (3.50-5.40) Hemoglobin 11.7g/dL (12.0-15.5) Hematocrit 36.0% (36.0-47.0) Mean Corpuscular Volume 76fL (79-100) Mean Corpuscular Hemoglobin 25pg (25-35) Mean Corpuscular Hemoglobin Concent 32g/dL (31-37) Red Cell Distribution Width 14.1% (11.5-14.5) Platelet Count 185x10^3/uL (140-400) Neutrophils (%) (Auto) 82% (31-73) Lymphocytes (%) (Auto) 17% (24-48) Monocytes (%) (Auto) 1% (0-9) Eosinophils (%) (Auto) 0% (0-3) Basophils (%) (Auto) 0% (0-3) Neutrophils # (Auto) 6.4x10^3uL (1.8-7.7) Lymphocytes # (Auto) 1.3x10^3/uL (1.0-4.8) Monocytes # (Auto) 0.1x10^3/uL (0.0-1.1) Eosinophils # (Auto) 0.0x10^3/uL (0.0-0.7) Basophils # (Auto) 0.0x10^3/uL (0.0-0.2) Prothrombin Time 14.7SEC (11.7-14.0) Prothromb Time International Ratio 1.2 (0.8-1.1) Sodium Level 138mmol/L (136-145) Potassium Level 4.1mmol/L (3.5-5.1) Chloride Level 106mmol/L (98-107) Carbon Dioxide Level 20mmol/L (21-32) Anion Gap 12 (6-14) Blood Urea Nitrogen 10mg/dL (7-20) Creatinine 0.8mg/dL (0.6-1.0) Estimated GFR (Cockcroft-Gault) 84.8 Glucose Level 228mg/dL (70-99) Calcium Level 8.5mg/dL (8.5-10.1) Iron Level 56ug/dL (50-170) Total Iron Binding Capacity 276ug/dL (250-450) Iron Saturation 20% (15-34) Triglycerides Level 57mg/dL (0-150) Cholesterol Level 158mg/dL (0-200) LDL Cholesterol, Calculated 116mg/dL (0-100) VLDL Cholesterol, Calculated 11mg/dL (0-40) HDL Cholesterol 31mg/dL (40-60) Cholesterol/HDL Ratio 5.1 Problem List Problems Medical Problems: (1) Acute cholecystitis Status: Acute Assessment/Plan s/p lap juan stable surgically asked her nurse to FU with neuro/ipc on her concerns on neurology workup Problems: JATIN POLO APRN Nov 02, 2016 13:52
--- NOTE | 2016-11-02 14:51 | PDOC2 ---
NEUROLOGY CONSULT Date of Admission Date of Admission DATE: 11/02/16 TIME: 14:39 Reason for Consult Reason for Consult: IMPRESSION: Left side weakness for about 30 minutes on 11/01 then resolved. Acute cholecystitis. Cholelithiasis. S/p cholecystectomy. HLD Fatty liver RECOMMENDATIONS/PLAN: ASA 325 mg daily. Statin not given due to breast feeding. Brain MRI w/o contrast. Echo. Treat medical and surgical diseases. Carotid A US + Doppler: No high grade stenosis. HCT: Negative. HISTORY OF THE PRESENT ILLNESS: 31-y-old female patient with acute abdominal pain to come to the ER and was found to have acute abdomen as acute cholecystitis, cholelithiasis and she received cholecystectomy. Post surgery, she had left side weakness, so Neurology was called for consultation. However, on repeated physical exam by hospitalist, her weakness was completely resolved. cranial nerve was not involved. No aphasia reported. ASA was administrated at that time. She is breast feeding her 8 months old baby. She has 4 children. PAST MEDICAL HISTORY: Please see above. PAST SURGERY HISTORY: Cholecystectomy on 11/01/16. ALLERGY: Unknown MEDICATIONS: Refer to [facility] FAMILY HISTORY: Non contributory. SOCIAL HISTORY: Lives at home. Denies smoking, drinking, and illicit drug use. REVIEW OF SYSTEMS: Constitutional: No malnutrition, weight loss, cachexia. Head: No traumatic brain or head injury. Skin: No edema, or rash. Ear: No infection, tinnitus. Eyes: No vision loss or color blindness. Nose: No bleeding or purulent discharges. Hearing: No hearing decrease. Neck: No injury. Breast: No history of cancer, masses,or discharges. Cardiac: HLD. Pulmonary: No pneumonia, COPD. GI: No GI ulcer, GI bleeding. Urinary/genital: No dysuria, hematuria, incontinence, urinary retention. Endocrinologic: No cousin face, craniofacial dysmorphism, polydactyly. Skeletomuscular: No muscular atrophy, deformity. Neurological: see HP. Psychiatric: Denies drug use/abuse. Otherwise, not -rcgqj review of systems. PHYSICAL EXAMINATION: General appearance is in no acute distress. HEENT: Normocephalic and nontraumatic. Eyes, nose, ears, and throat are unremarkable. Neck is supple. No lymphadenopathy. No bruits are heard over the carotid artery. No crepitus. Cardiovascular: S1, S2, regular rate and rhythm. Pulmonary: Clear to auscultation bilaterally. Abdomen: Bowel sounds are positive. Extremities: No rash, lesions, or edema. No restriction of range of motion NEUROLOGICAL EXAMINATION: Alert Oriented to time, place and person. PERRL. EOMI. CN: no focal findings. Muscle tone: within normal. Muscle strength: 5 right side, seemed 4+ left side. DTR: 2+ Plantar reflex: Flexor response bilaterally Gait: not examined in bed. Sensory exam: no abnormal findings. No cerebellar signs elicited. F-T-N test fine.. Current Medications Current Medications Current Medications Fentanyl Citrate 50 mcg 50 mcg PRN Q15MIN PRN IV PAIN GREATER THAN 3/10 Last administered on 11/01/16 15:10; Start 11/01/16 at 15:15; Stop 11/02/16 at 15:14 Sodium Chloride (Iv Sodium Chloride 0.9% 1000ml Bag) 1,000 ml @ 1,000 mls/hr Q1H IV Last administered on 11/01/16 15:10; Start 11/01/16 at 15:01; Stop at 16:00; Status DC Ondansetron HCl (Zofran) 4 mg 1X ONCE IV Last administered on 11/01/16 15:11; Start 11/01/16 at 15:15; Stop 11/01/16 at 15:16; Status DC Famotidine (Pepcid) 20 mg 1X ONCE IVP Last administered on 11/01/16 15:11; Start 11/01/16 at 15:15; Stop 11/01/16 at 15:16; Status DC Ondansetron HCl (Zofran) 4 mg PRN Q8HRS PRN IV NAUSEA/VOMITING; Start 11/01/16 at 17:45; Stop 11/02/16 at 17:44 Fentanyl Citrate 50 mcg 50 mcg PRN Q2HR PRN IV PAIN; Start 11/01/16 at 17:45; Stop 11/02/16 at 17:44 Sodium Chloride (Iv Sodium Chloride 0.9% 1000ml Bag) 1,000 ml @ 125 mls/hr Q8H IV ; Start 11/01/16 at 18:00; Stop 11/02/16 at 17:59 Fentanyl Citrate (Fentanyl 2ml Vial) 25 mcg PRN Q5MIN PRN IV MILD PAIN; Start 11/01/16 at 20:00; Stop 11/02/16 at 19:59 Fentanyl Citrate (Fentanyl 2ml Vial) 50 mcg PRN Q5MIN PRN IV MODERATE PAIN Last administered on 11/01/16 23:12; Start 11/01/16 at 20:00; Stop 11/02/16 at 19: 59 Morphine Sulfate 1 mg 1 mg PRN Q10MIN PRN IV SEVERE PAIN; Start 11/01/16 at 20: 00; Stop 11/02/16 at 19:59 Lactated Ringer's (Iv Lactated Ringers) 1,000 ml @ 0 mls/hr Q0M IV Last administered on 11/01/16 21:30; Start 11/01/16 at 19:56; Stop 11/02/16 at 07:55; Status DC Lidocaine HCl 2 ml 1X PRN PRN ID IV START; Start 11/01/16 at 20:00; Stop at 19:59 Hydromorphone HCl (Dilaudid) 0.5 mg PRN Q10MIN PRN IV SEV PAIN,Second choice; Start 11/01/16 at 20:00; Stop 11/02/16 at 19:59 Prochlorperazine Edisylate (Compazine) 5 mg PACU PRN PRN IV NAUSEA; Start at 20:00; Stop 11/02/16 at 19:59 Cellulose 1 each STK-MED ONCE .ROUTE ; Start 11/01/16 at 20:28; Stop 11/01/16 at 20:29; Status DC Bupivacaine HCl/ Epinephrine Bitart (Sensorcain-Mpf Epi 0.5%-1:[id number]) 30 ml STK -MED ONCE .ROUTE Last administered on 11/01/16 21:39; Start 11/01/16 at 20:28; Stop 11/01/16 at 20:29; Status DC Iohexol (Omnipaque 300 Mg/ml) 50 ml STK-MED ONCE .ROUTE Last administered on 21:39; Start 11/01/16 at 20:28; Stop 11/01/16 at 20:29; Status DC Dexamethasone Sodium Phosphate (Decadron) 20 mg STK-MED ONCE .ROUTE ; Start 11/01 at 20:42; Stop 11/01/16 at 20:43; Status DC Ondansetron HCl 4 mg 4 mg STK-MED ONCE .ROUTE ; Start 11/01/16 at 20:42; Stop 11/01/16 at 20:43; Status DC Propofol (Diprivan) 20 ml @ As Directed STK-MED ONCE IV ; Start 11/01/16 at 20:42 ; Stop 11/01/16 at 20:43; Status DC Lidocaine HCl 100 mg STK-MED ONCE .ROUTE ; Start 11/01/16 at 20:42; Stop 11/01/16 at 20:43; Status DC Midazolam HCl (Versed) 2 mg STK-MED ONCE .ROUTE ; Start 11/01/16 at 20:42; Stop 11/01/16 at 20:43; Status DC Fentanyl Citrate (Fentanyl 2ml Vial) 100 mcg STK-MED ONCE .ROUTE ; Start at 20:42; Stop 11/01/16 at 20:43; Status DC Rocuronium [place] 50 mg 50 mg STK-MED ONCE .ROUTE ; Start 11/01/16 at 20:42; Stop 11/01/16 at 20:43; Status DC Cefazolin Sodium/ Dextrose (Ancef 2gm Premix) 50 ml @ 100 mls/hr 1X ONCE IV Last administered on 11/01/16 21:20; Start 11/01/16 at 21:00; Stop 11/01/16 at 21: 29; Status DC Succinylcholine Chloride 200 mg 200 mg STK-MED ONCE .ROUTE ; Start 11/01/16 at 20 :58; Stop 11/01/16 at 20:59; Status DC Cefazolin Sodium/ Dextrose (Ancef 2gm Premix) 50 ml @ As Directed STK-MED ONCE IV ; Start 11/01/16 at 21:02; Stop 11/01/16 at 21:03; Status DC Oxycodone/ Acetaminophen (Percocet 5/325) 2 tab PRN Q4HRS PRN PO PAIN Last administered on 11/02/16 12:25; Start 11/01/16 at 21:15 Hydromorphone HCl (Dilaudid) 0.4 mg PRN Q2HR PRN IVP PAIN; Start 11/01/16 at 21: 15 Ketorolac Tromethamine (Toradol For Or Only) 30 mg STK-MED ONCE INJ ; Start 11/01 at 21:56; Stop 11/01/16 at 21:57; Status DC Glycopyrrolate (Robinul) 1 mg STK-MED ONCE .ROUTE ; Start 11/01/16 at 21:56; Stop 11/01/16 at 21:57; Status DC Neostigmine Methylsulfate 5 mg STK-MED ONCE .ROUTE ; Start 11/01/16 at 21:56; Stop 11/01/16 at 21:57; Status DC Desflurane (Suprane) 30 ml STK-MED ONCE IH ; Start 11/01/16 at 21:59; Stop at 22:00; Status DC Epinephrine (S2 Racepinephrine) 0.5 ml STK-MED ONCE .ROUTE ; Start 11/01/16 at 22 :33; Stop 11/01/16 at 22:34; Status DC Midazolam HCl (Versed) 2 mg STK-MED ONCE .ROUTE ; Start 11/01/16 at 22:36; Stop 11/01/16 at 22:37; Status DC Aspirin (Ecotrin) 325 mg 1X ONCE PO Last administered on 11/02/16 00:24; Start 11/01/16 at 23:55; Stop 11/01/16 at 23:56; Status DC Midazolam HCl (Versed) 2 mg 1X PACU IV ; Start 11/01/16 at 23:45; Stop 11/01/16 at 23:47; Status DC Midazolam HCl (Versed) 2 mg 1X PACU PRN IV AGITATION Last administered on 22:53; Start 11/01/16 at 23:55 Insulin Aspart (Novolog) 0-7 UNITS TIDWMEALS SQ ; Start 11/02/16 at 12:00 Dextrose 12.5 gm PRN Q15MIN PRN IV SEE COMMENTS; Start 11/02/16 at 09:45 Polysaccharide Iron Complex (Niferex 150) 150 mg DAILY PO Last administered on 11/02/16 12:25; Start 11/02/16 at 10:45 Docusate Sodium (Colace) 100 mg DAILY PO Last administered on 11/02/16 12:25; Start 11/02/16 at 10:45 Polyethylene Glycol (miraLAX PACKET) 17 gm 1X ONCE PO Last administered on 11/02t 12:25; Start 11/02/16 at 10:45; Stop 11/02/16 at 10:55; Status DC Active Scripts Active Colace (Docusate Sodium) 100 Mg Capsule 100 Mg PO BID Oxycodone-Acetaminophen 5-325 (Oxycodone Hcl/Acetaminophen) 1 Each Tablet 1 Tab PO PRN Q4HRS PRN Reported Metformin Hcl 500 Mg Tablet 500 Mg PO BIDWMEALS Allergies Allergies: Coded Allergies: No Known Drug Allergies (Unverified , 04/14/14) Vitals VITALS Vital Signs Date Time Temp Pulse Resp B/P Pulse Ox O2 Delivery O2 Flow Rate FiO2 11/02/16 12:25 18 Room Air 11/02/16 11:00 66 114/65 96 11/02/16 07:00 98.0 98.0 11/01/16 22:53 10 Labs Labs Laboratory Tests Test 11/01/16 14:07 11/01/16 14:10 11/01/16 16:10 11/01/16 21:09 Bedside Urine HCG, Qualitative Hcg negative (Negative) White Blood Count 9.4x10^3/uL (4.0-11.0) Red Blood Count 5.33x10^6/uL (3.50-5.40) Hemoglobin 13.4g/dL (12.0-15.5) Hematocrit 42.1% (36.0-47.0) Mean Corpuscular Volume 79fL (79-100) Mean Corpuscular Hemoglobin 25pg (25-35) Mean Corpuscular Hemoglobin Concent 32g/dL (31-37) Red Cell Distribution Width 14.4% (11.5-14.5) Platelet Count 230x10^3/uL (140-400) Neutrophils (%) (Auto) 66% (31-73) Lymphocytes (%) (Auto) 29% (24-48) Monocytes (%) (Auto) 4% (0-9) Eosinophils (%) (Auto) 1% (0-3) Basophils (%) (Auto) 0% (0-3) Neutrophils # (Auto) 6.2x10^3uL (1.8-7.7) Lymphocytes # (Auto) 2.7x10^3/uL (1.0-4.8) Monocytes # (Auto) 0.4x10^3/uL (0.0-1.1) Eosinophils # (Auto) 0.1x10^3/uL (0.0-0.7) Basophils # (Auto) 0.0x10^3/uL (0.0-0.2) Sodium Level 140mmol/L (136-145) Potassium Level 3.7mmol/L (3.5-5.1) Chloride Level 105mmol/L (98-107) Carbon Dioxide Level 23mmol/L (21-32) Anion Gap 12 (6-14) Blood Urea Nitrogen 8mg/dL (7-20) Creatinine 0.7mg/dL (0.6-1.0) Estimated GFR (Cockcroft-Gault) 98.9 BUN/Creatinine Ratio 11 (6-20) Glucose Level 105mg/dL (70-99) Calcium Level 9.3mg/dL (8.5-10.1) Total Bilirubin 0.4mg/dL (0.2-1.0) Aspartate Amino Transf (AST/SGOT) 17U/L (15-37) Alanine Aminotransferase (ALT/SGPT) 20U/L (14-59) Alkaline Phosphatase 85U/L (46-116) Total Protein 8.8g/dL (6.4-8.2) Albumin 4.0g/dL (3.4-5.0) Albumin/Globulin Ratio 0.8 (1.0-1.7) Lipase 120U/L (73-393) Urine Collection Type Unknown Urine Color Yellow Urine Clarity Clear Urine pH 5.5 Urine Specific [place] 1.020 Urine Protein Negativemg/dL (NEG-TRACE) Urine Glucose (UA) Negativemg/dL (NEG) Urine Ketones (Stick) Tracemg/dL (NEG) Urine Blood Negative (NEG) Urine Nitrite Negative (NEG) Urine Bilirubin Negative (NEG) Urine Urobilinogen Dipstick 0.2mg/dL (0.2 mg/dL) Urine Leukocyte Esterase Negative (NEG) Urine RBC 1-2/HPF (0-2) Urine WBC 1-4/HPF (0-4) Urine Squamous Epithelial Cells Few/LPF Urine Bacteria 0/HPF (0-FEW) Urine Mucus Mod/LPF Glucose (Fingerstick) 83mg/dL (70-99) Test 11/01/16 22:30 11/02/16 04:15 11/02/16 07:27 11/02/16 11:00 Glucose (Fingerstick) 156mg/dL (70-99) 199mg/dL (70-99) 147mg/dL (70-99) White Blood Count 7.8x10^3/uL (4.0-11.0) Red Blood Count 4.72x10^6/uL (3.50-5.40) Hemoglobin 11.7g/dL (12.0-15.5) Hematocrit 36.0% (36.0-47.0) Mean Corpuscular Volume 76fL (79-100) Mean Corpuscular Hemoglobin 25pg (25-35) Mean Corpuscular Hemoglobin Concent 32g/dL (31-37) Red Cell Distribution Width 14.1% (11.5-14.5) Platelet Count 185x10^3/uL (140-400) Neutrophils (%) (Auto) 82% (31-73) Lymphocytes (%) (Auto) 17% (24-48) Monocytes (%) (Auto) 1% (0-9) Eosinophils (%) (Auto) 0% (0-3) Basophils (%) (Auto) 0% (0-3) Neutrophils # (Auto) 6.4x10^3uL (1.8-7.7) Lymphocytes # (Auto) 1.3x10^3/uL (1.0-4.8) Monocytes # (Auto) 0.1x10^3/uL (0.0-1.1) Eosinophils # (Auto) 0.0x10^3/uL (0.0-0.7) Basophils # (Auto) 0.0x10^3/uL (0.0-0.2) Prothrombin Time 14.7SEC (11.7-14.0) Prothromb Time International Ratio 1.2 (0.8-1.1) Sodium Level 138mmol/L (136-145) Potassium Level 4.1mmol/L (3.5-5.1) Chloride Level 106mmol/L (98-107) Carbon Dioxide Level 20mmol/L (21-32) Anion Gap 12 (6-14) Blood Urea Nitrogen 10mg/dL (7-20) Creatinine 0.8mg/dL (0.6-1.0) Estimated GFR (Cockcroft-Gault) 84.8 Glucose Level 228mg/dL (70-99) Calcium Level 8.5mg/dL (8.5-10.1) Iron Level 56ug/dL (50-170) Total Iron Binding Capacity 276ug/dL (250-450) Iron Saturation 20% (15-34) Triglycerides Level 57mg/dL (0-150) Cholesterol Level 158mg/dL (0-200) LDL Cholesterol, Calculated 116mg/dL (0-100) VLDL Cholesterol, Calculated 11mg/dL (0-40) HDL Cholesterol 31mg/dL (40-60) Cholesterol/HDL Ratio 5.1 Laboratory Tests Test 11/01/16 16:10 11/01/16 21:09 11/01/16 22:30 11/02/16 04:15 Urine Collection Type Unknown Urine Color Yellow Urine Clarity Clear Urine pH 5.5 Urine Specific [place] 1.020 Urine Protein Negativemg/dL (NEG-TRACE) Urine Glucose (UA) Negativemg/dL (NEG) Urine Ketones (Stick) Tracemg/dL (NEG) Urine Blood Negative (NEG) Urine Nitrite Negative (NEG) Urine Bilirubin Negative (NEG) Urine Urobilinogen Dipstick 0.2mg/dL (0.2 mg/dL) Urine Leukocyte Esterase Negative (NEG) Urine RBC 1-2/HPF (0-2) Urine WBC 1-4/HPF (0-4) Urine Squamous Epithelial Cells Few/LPF Urine Bacteria 0/HPF (0-FEW) Urine Mucus Mod/LPF Glucose (Fingerstick) 83mg/dL (70-99) 156mg/dL (70-99) White Blood Count 7.8x10^3/uL (4.0-11.0) Red Blood Count 4.72x10^6/uL (3.50-5.40) Hemoglobin 11.7g/dL (12.0-15.5) Hematocrit 36.0% (36.0-47.0) Mean Corpuscular Volume 76fL (79-100) Mean Corpuscular Hemoglobin 25pg (25-35) Mean Corpuscular Hemoglobin Concent 32g/dL (31-37) Red Cell Distribution Width 14.1% (11.5-14.5) Platelet Count 185x10^3/uL (140-400) Neutrophils (%) (Auto) 82% (31-73) Lymphocytes (%) (Auto) 17% (24-48) Monocytes (%) (Auto) 1% (0-9) Eosinophils (%) (Auto) 0% (0-3) Basophils (%) (Auto) 0% (0-3) Neutrophils # (Auto) 6.4x10^3uL (1.8-7.7) Lymphocytes # (Auto) 1.3x10^3/uL (1.0-4.8) Monocytes # (Auto) 0.1x10^3/uL (0.0-1.1) Eosinophils # (Auto) 0.0x10^3/uL (0.0-0.7) Basophils # (Auto) 0.0x10^3/uL (0.0-0.2) Prothrombin Time 14.7SEC (11.7-14.0) Prothromb Time International Ratio 1.2 (0.8-1.1) Sodium Level 138mmol/L (136-145) Potassium Level 4.1mmol/L (3.5-5.1) Chloride Level 106mmol/L (98-107) Carbon Dioxide Level 20mmol/L (21-32) Anion Gap 12 (6-14) Blood Urea Nitrogen 10mg/dL (7-20) Creatinine 0.8mg/dL (0.6-1.0) Estimated GFR (Cockcroft-Gault) 84.8 Glucose Level 228mg/dL (70-99) Calcium Level 8.5mg/dL (8.5-10.1) Iron Level 56ug/dL (50-170) Total Iron Binding Capacity 276ug/dL (250-450) Iron Saturation 20% (15-34) Triglycerides Level 57mg/dL (0-150) Cholesterol Level 158mg/dL (0-200) LDL Cholesterol, Calculated 116mg/dL (0-100) VLDL Cholesterol, Calculated 11mg/dL (0-40) HDL Cholesterol 31mg/dL (40-60) Cholesterol/HDL Ratio 5.1 Test 11/02/16 07:27 11/02/16 11:00 Glucose (Fingerstick) 199mg/dL (70-99) 147mg/dL (70-99) OSMAR PFEIFFER MD 9, 2017 14:51
--- NOTE | 2016-11-03 14:24 | PATHOLOGY ---
PATHOLOGY REPORT * * * * * * * * FINAL DIAGNOSIS: Gallbladder, laparoscopic cholecystectomy: - Cholesterolosis. - Chronic cholecystitis. - Adenomyosis of gallbladder fundus, focal. COMMENT: There is no evidence of malignancy. (JIMMYM:; d/t: 11/03/16) REPORT ELECTRONICALLY SIGNED BY: Jordan Wright M.D. DATE/TIME: 11/03/2016 14:23 * * * * * * * * GROSS PATHOLOGY: Received in formalin labeled "Kaur Wong - gallbladder sac with contents," is a 5.4 x 2.2 x 1.8 cm, intact gallbladder with pink-grossman, well vascularized, and wrinkled serosal surfaces. Opening the gallbladder reveals dark green and velvety mucosa and an average wall thickness of 0.2 cm. A 1.3 x 1.0 cm pink-grossman and partially cystic lesion is located in the fundic region of the gallbladder. Calculi are not present and no masses are noted grossly. Medication Aide sections from the body and fundus are submitted along with the proximal margin and fundic lesion in cassette A1. (TTL; 11/02/2016) INITIAL CPT CODE(S): A; 21586 Professional services performed by [facility] at [address] [address] Technical services performed by [facility] at [address] [place] [address] [address] [address]. SPECIMEN(S) RECEIVED: A.Gallbladder sac with contents CLINICAL HISTORY: Cholecystitis PATIENT: KAUR WONG /AGE: 1 1985 (Age: 31) PATIENT #: [id number] ALT CASE #: SPECIMEN COLLECTION DATE: 11/01/2016 SPECIMEN RECEIVED DATE: 11/02/2016 [facility] - [id number] [place] [address] - PHONE: [phone] * * * END OF REPORT * * *
--- NOTE | 2016-11-06 14:14 | PDOC ---
SUBJECTIVE Subjective Midazolam 2 mg IV was removed from [facility], but not given to patient. 2 mg of midazolam was wasted in the PACU with Jada Beach RN, but not found in the [facility]. CRISTINE MARROQUIN CRNA Nov 06, 2016 14:14
== END 2016-11-02 16:30 | disposition home or self-care (01) | DRG 418 ==
LOC: ER 13:43 → 4 NORTH 17:23
PROVIDERS: ADMIT Internal Medicine; ATTEND Internal Medicine
PROC: BF101ZZ Fluoroscopy of Bile Ducts using Low Osmolar Contrast (ICD-10-PCS; 2016-11-01)
PROC: 0FT44ZZ Resection of Gallbladder, Percutaneous Endoscopic Approach (ICD-10-PCS; principal; 2016-11-01 20:45)
DX: K80.00 Calculus of gallbladder with acute cholecystitis without obstruction (principal); F05 Delirium due to known physiological condition; G81.90 Hemiplegia, unspecified affecting unspecified side; E11.9 Type 2 diabetes mellitus without complications; E66.9 Obesity, unspecified; E78.5 Hyperlipidemia, unspecified; K66.8 Other specified disorders of peritoneum; K76.0 Fatty (change of) liver, not elsewhere classified; Z79.82 Long term (current) use of aspirin; Z86.32 Personal history of gestational diabetes; Z79.899 Other long term (current) drug therapy; Z68.31 Body mass index [BMI] 31.0-31.9, adult
CPT/HCPCS: 99285; C8929; 36415; 70450; 74300; 76705; 80048; 80053; 80061; 81001; 81025; 82947; 83540; 83550; 83690; 85027; 85610; 88304; 93005; 96361; 96374; 96375; C1782; J0330; J0690; J1100; J1815; J1885; J2250; J2405; J2704; J2710; J3010; J3490; J7030; J7120; Q9967; S0028

== ENCOUNTER 2016-12-29 10:15 | Emergency (ER) | payer OTHER ==
[~2016-12-29] VITALS: Ht 152.4 cm; Wt 72.6 kg
[~2016-12-29 10:15] MED LIST changes: +DOCU-27 PO; +METF500T4 PO; +OXYC1TAB7 PO
[2016-12-29 10:55] LABS: BASO % 0 % (0-3); EOS % 1 % (0-3); HEMATOCRIT 39.6 % (36.0-47.0); LYMPH # 2.8 x10^3/uL (1.0-4.8); LYMPH % 28 % (24-48); MEAN CORPUSCULAR HEMOGLOBIN 25 pg (25-35); MEAN CORPUSCULAR HGB CONC 33 g/dL (31-37); MEAN CORPUSCULAR VOLUME 77 fL (79-100); MONO % 4 % (0-9); NEUT % 67 % (31-73); PLATELET COUNT 235 x10^3/uL (140-400); RED BLOOD COUNT 5.17 x10^6/uL (3.50-5.40); RED CELL DISTRIBUTION WIDTH 15.2 % (11.5-14.5); WHITE BLOOD COUNT 10.1 x10^3/uL (4.0-11.0)
[2016-12-29] MEDS ORDERED: FAMOTIDINE 20 MG/2 ML VIAL IVP ONE (11:00)
[2016-12-29] MEDS ORDERED: ONDANSETRON PF 4 MG/2 ML VIAL. IV ONE (11:00)
[2016-12-29] MEDS ORDERED: fentaNYL PF VIAL 100 MCG/2 ML VIAL IV ONE (11:00)
[2016-12-29] MEDS ORDERED: DICYCLOMINE HCL 10 MG CAPSULE PO ONE (11:00)
[2016-12-29] MEDS ORDERED: IV NORMAL SALINE 1000ML BAG 1,000 ML IV ONE (11:00)
[2016-12-29 11:08] LABS: CREATININE 0.7 mg/dL (0.6-1.0); GFR 98.9; POTASSIUM 4.1 mmol/L (3.5-5.1)
[2016-12-29 11:14] LABS: ALBUMIN 3.6 g/dL (3.4-5.0); ALBUMIN/GLOBULIN RATIO 0.8 (1.0-1.7); TOTAL BILIRUBIN 0.3 mg/dL (0.2-1.0); TOTAL PROTEIN 8.4 g/dL (6.4-8.2)
[2016-12-29 11:56] LABS: BILIRUBIN,URINE NEGATIVE (NEG); GLUCOSE,URINE NEGATIVE (NEG); NITRITE,URINE NEGATIVE (NEG); PH,URINE 5.5; PROTEIN,URINE NEGATIVE (NEG-TRACE); UROBILINOGEN,URINE 0.2 mg/dL (0.2 mg/dL)
[2016-12-29 12:10] LABS: BACTERIA,URINE 0 /HPF (0-FEW); RBC,URINE 0 /HPF (0-2); SQUAMOUS EPITHELIAL CELL,UR MOD /LPF
[2016-12-29] MEDS ORDERED: CONTRAST GIVEN MC PRN (12:45)
[2016-12-29] MEDS ORDERED: IOHEXOL 300 MG/ML 75 ML VIAL IV ONE ×2 (12:45)
[2016-12-29 13:29] LABS: NEG OBC UR NEG; POS OBC UR POS
--- NOTE | 2016-12-29 13:50 | RAD ---
CT of the abdomen and pelvis with contrast, 12/29/2016: History: Nausea, vomiting, diarrhea Multidetector CT imaging was performed following an IV bolus injection of iodinated contrast material. No oral contrast material was administered for this study. On the highest axial image, which includes a portion of the lung bases, there is a 15 mm nonenhanced nodule along the inferior aspect of the right hilum. It is incompletely visualized on this image but does not appear to connect to a branching vascular structure. There is a similar small density in the azygoesophageal recess region on the right. The appearance raises the possibility of adenopathy The gallbladder is surgically absent. No hepatic abnormality is seen. The pancreas is unremarkable. The spleen is of normal size. No renal or adrenal abnormality is detected. The aorta is unremarkable. No retroperitoneal, mesenteric, iliac or inguinal adenopathy is seen. The bowel loops are not dilated. The appendix is visualized and shows no abnormality. No free fluid or free air is evident in the abdomen or pelvis. IMPRESSION: 1. Status post cholecystectomy. 2. No acute abdominal or pelvic abnormality is detected. 3. Small nodules incompletely visualized in the right lower chest raise the possibility of mild adenopathy. CT chest follow-up should be considered for further evaluation. PQRS Compliance Statement: One or more of the following individualized dose reduction techniques were utilized for this examination: 1. Automated exposure control 2. Adjustment of the mA and/or kV according to patient size 3. Use of iterative reconstruction technique
[2016-12-29 14:30] VITALS: BP 110/67
[2016-12-29] MEDS ORDERED: PROM25TA10 PO (14:51)
[2016-12-29] MEDS ORDERED: METR250T PO (14:51)
[2016-12-29] MEDS ORDERED: HYDR-971 PO (14:51)
--- NOTE | 2016-12-29 14:52 | PHYS DOC ---
Past Medical History Past Medical History: Diabetes-Type II, Gallstones, Other Additional Past Medical Histor: left leg deficit from injury during birthing, GESTATIONAL DM Past Surgical History: Tonsillectomy Alcohol Use: None Drug Use: None Adult General Chief Complaint Chief Complaint: ABDOMINAL PAIN [facility] HPI Patient is a 31 year old female with a history of cholecystectomy that was done 2 months ago who presents today with nausea vomiting and diarrhea that began 2 days ago. Patient is also complaining of left flank pain. Patient denies any chance she is , denies any urgency frequency or dysuria. Patient denies any hematemesis or melena. Review of Systems Review of Systems Constitutional: Denies fever or chills [] Eyes: Denies change in visual acuity, redness, or eye pain [] HENT: Denies nasal congestion or sore throat [] Respiratory: Denies cough or shortness of breath [] Cardiovascular: No additional information not addressed in HPI [] GI: Nausea vomiting diarrhea : Left flank pain Musculoskeletal: Denies back pain or joint pain [] Integument: Denies rash or skin lesions [] Neurologic: Denies headache, focal weakness or sensory changes [] Endocrine: Denies polyuria or polydipsia [] Current Medications Current Medications Current Medications Medications (Trade) Dose Ordered Sig/Don Start Time Stop Time Status Last Admin Dose Admin Dicyclomine HCl (Bentyl) 20 mg 1X ONCE 12/29/16 11:00 12/29/16 11:01 DC 12/29/16 11:12 20 MG Famotidine (Pepcid) 20 mg 1X ONCE 12/29/16 11:00 12/29/16 11:01 DC 12/29/16 11:07 20 MG Fentanyl Citrate (Fentanyl 2ml Vial) 50 mcg 1X ONCE 12/29/16 11:00 12/29/16 11:01 DC 12/29/16 11:08 50 MCG Info (Do NOT chart on this entry -- for MONITORING) 1 each PRN DAILY PRN 12/29/16 12:45 12/31/16 12:44 Iohexol (Omnipaque 300 Mg/ml) 75 ml 1X ONCE 12/29/16 12:45 12/29/16 12:46 DC Ondansetron HCl (Zofran) 4 mg 1X ONCE 12/29/16 11:00 12/29/16 11:01 DC 12/29/16 11:07 4 MG Sodium Chloride 1,000 ml @ 1,000 mls/hr 1X ONCE 12/29/16 11:00 12/29/16 11:59 DC 12/29/16 11:07 1,000 MLS/HR Allergies Allergies Allergies Coded Allergies Type Severity Reaction Last Updated Verified No Known Drug Allergies 04/14/14 No Physical Exam Physical Exam Constitutional: Well developed, well nourished, no acute distress, non-toxic appearance. [] HENT: Normocephalic, atraumatic, bilateral external ears normal, oropharynx moist, no oral exudates, nose normal. [] Eyes: PERRLA, EOMI, conjunctiva normal, no discharge. [] Neck: Normal range of motion, no tenderness, supple, no stridor. [] Cardiovascular:Heart rate regular rhythm, no murmur [] Lungs & Thorax: Bilateral breath sounds clear to auscultation [] Abdomen: Bowel sounds normal, soft, mild tenderness on the left upper quadrant, no right upper quadrant or right lower quadrant pain or tenderness, no masses, no pulsatile masses. [] Skin: Warm, dry, no erythema, no rash. [] Back: No tenderness, no CVA tenderness. [] Extremities: No tenderness, no cyanosis, no clubbing, ROM intact, no edema. [] Neurologic: Alert and oriented X 3, normal motor function, normal sensory function, no focal deficits noted. [] Psychologic: Affect normal, judgement normal, mood normal. [] Current Patient Data Vital Signs Vital Signs Date Time Temp Pulse Resp B/P (MAP) Pulse Ox O2 Delivery O2 Flow Rate FiO2 12/29/16 13:30 72 18 116/70 (85) 98 Room Air 12/29/16 10:15 98.5 98.5 Lab Values Laboratory Tests Test 12/29/16 10:20 12/29/16 11:45 White Blood Count 10.1 x10^3/uL (4.0-11.0) Red Blood Count 5.17 x10^6/uL (3.50-5.40) Hemoglobin 13.0 g/dL (12.0-15.5) Hematocrit 39.6 % (36.0-47.0) Mean Corpuscular Volume 77 fL (79-100) L Mean Corpuscular Hemoglobin 25 pg (25-35) Mean Corpuscular Hemoglobin Concent 33 g/dL (31-37) Red Cell Distribution Width 15.2 % (11.5-14.5) H Platelet Count 235 x10^3/uL (140-400) Neutrophils (%) (Auto) 67 % (31-73) Lymphocytes (%) (Auto) 28 % (24-48) Monocytes (%) (Auto) 4 % (0-9) Eosinophils (%) (Auto) 1 % (0-3) Basophils (%) (Auto) 0 % (0-3) Neutrophils # (Auto) 6.7 x10^3uL (1.8-7.7) Lymphocytes # (Auto) 2.8 x10^3/uL (1.0-4.8) Monocytes # (Auto) 0.4 x10^3/uL (0.0-1.1) Eosinophils # (Auto) 0.1 x10^3/uL (0.0-0.7) Basophils # (Auto) 0.0 x10^3/uL (0.0-0.2) Sodium Level 137 mmol/L (136-145) Potassium Level 4.1 mmol/L (3.5-5.1) Chloride Level 103 mmol/L (98-107) Carbon Dioxide Level 23 mmol/L (21-32) Anion Gap 11 (6-14) Blood Urea Nitrogen 10 mg/dL (7-20) Creatinine 0.7 mg/dL (0.6-1.0) Estimated GFR (Cockcroft-Gault) 98.9 BUN/Creatinine Ratio 14 (6-20) Glucose Level 137 mg/dL (70-99) H Calcium Level 9.0 mg/dL (8.5-10.1) Total Bilirubin 0.3 mg/dL (0.2-1.0) Aspartate Amino Transferase (AST) 16 U/L (15-37) Alanine Aminotransferase (ALT) 19 U/L (14-59) Alkaline Phosphatase 69 U/L (46-116) Total Protein 8.4 g/dL (6.4-8.2) H Albumin 3.6 g/dL (3.4-5.0) Albumin/Globulin Ratio 0.8 (1.0-1.7) L Lipase 136 U/L (73-393) Urine Collection Type Unknown Urine Color Yellow Urine Clarity Cloudy Urine pH 5.5 Urine Specific [place] 1.020 Urine Protein Negative mg/dL (NEG-TRACE) Urine Glucose (UA) Negative mg/dL (NEG) Urine Ketones (Stick) Negative mg/dL (NEG) Urine Blood Negative (NEG) Urine Nitrite Negative (NEG) Urine Bilirubin Negative (NEG) Urine Urobilinogen Dipstick 0.2 mg/dL (0.2 mg/dL) Urine Leukocyte Esterase Trace (NEG) Urine RBC 0 /HPF (0-2) Urine WBC 1-4 /HPF (0-4) Urine Squamous Epithelial Cells Mod /LPF Urine Bacteria 0 /HPF (0-FEW) Urine Mucus Mod /LPF Urine Test Negative (NEG) Laboratory Tests 12/29/16 10:20 Laboratory Tests 12/29/16 10:20 EKG EKG [] Radiology/Procedures Radiology/Procedures []PROCEDURE: CT ABD PELV W/ IV CONTRST ONLY CT of the abdomen and pelvis with contrast, 12/29/2016: History: Nausea, vomiting, diarrhea Multidetector CT imaging was performed following an IV bolus injection of iodinated contrast material. No oral contrast material was administered for this study. On the highest axial image, which includes a portion of the lung bases, there is a 15 mm nonenhanced nodule along the inferior aspect of the right hilum. It is incompletely visualized on this image but does not appear to connect to a branching vascular structure. There is a similar small density in the azygoesophageal recess region on the right. The appearance raises the possibility of adenopathy The gallbladder is surgically absent. No hepatic abnormality is seen. The pancreas is unremarkable. The spleen is of normal size. No renal or adrenal abnormality is detected. The aorta is unremarkable. No retroperitoneal, mesenteric, iliac or inguinal adenopathy is seen. The bowel loops are not dilated. The appendix is visualized and shows no abnormality. No free fluid or free air is evident in the abdomen or pelvis. IMPRESSION: 1. Status post cholecystectomy. 2. No acute abdominal or pelvic abnormality is detected. 3. Small nodules incompletely visualized in the right lower chest raise the possibility of mild adenopathy. CT chest follow-up should be considered for further evaluation. PQRS Compliance Statement: One or more of the following individualized dose reduction techniques were utilized for this examination: 1. Automated exposure control 2. Adjustment of the mA and/or kV according to patient size 3. Use of iterative reconstruction technique DICTATED and SIGNED BY: DANIELLA YARBROUGH MD DATE: 12/29/16 3333 CC: CORY GUO MD; ANTON JOSHI APRN; NON,STAFF ~ Course & Med Decision Making Course & Med Decision Making Pertinent Labs and Imaging studies reviewed. (See chart for details) This is a 31-year-old female patient who presents with nausea vomiting diarrhea and left flank pain for 2 days. Patient had a gallbladder 2 months ago. CBC CMP lipase and urine analysis with no acute findings. CT of the abdomen and pelvic was negative for any acute findings. CT of the abdomen and pelvic was also noted for small nodules on the right lower chest raising possibility of mild adenopathy. Patient was instructed to follow-up with the PCP for this. Patient's diarrhea was suspicious for C. difficile. We did send the stool to lab. We started on Flagyl. Discharged with promethazine and hydrocodone as needed for pain. Instructed to push fluids. Dragon Disclaimer Dragon Disclaimer This electronic medical record was generated, in whole or in part, using a voice recognition dictation system. Departure Departure Impression: Primary Impression: Abdominal pain Additional Impressions: Vomiting Diarrhea Disposition: 01 HOME, SELF-CARE Condition: STABLE Referrals: CORY GUO MD (PCP) Follow-up with your doctor in the next 1 week Patient Instructions: Diarrhea, Nausea and Vomiting Additional Instructions: You were seen for abdominal pain nausea vomiting and diarrhea. We sent a stool for C. difficile. The results will come back in 3 days. We will call if it is positive. In the meantime we'll put you on Flagyl. Take it as prescribed. Scripts Diphenoxylate Hcl/Atropine (LOMOTIL TABLET) 1 Each Tablet 1 TAB PO TID, #30 TAB Prov: ANTON JOSHI JOINT CUTTER MACHINE 5/5/17 Promethazine Hcl (PROMETHAZINE HCL) 25 Mg Tablet 1 TAB PO PRN Q6HRS, #20 TAB Prov: MUTUNGA,ANTON [employer] C[employer]ACHINE 5/5/17 Hydrocodone/Apap 5-325 (NORCO 5-325 TABLET) 1 Each Tablet 1-2 TAB PO Q4-6HRS, #20 TAB Prov: MUTUNGA,ANTON [employer] C[employer]ACHINE 5/5/17 Metronidazole (FLAGYL) 250 Mg Tablet 1 TAB PO TID, #30 TAB Prov: MUTUNGA,ANTON ION 12/29/16 Problem Qualifiers Primary Impression: Abdominal pain Abdominal location: left upper quadrant Qualified Codes: R10.12 - Left upper quadrant pain Additional Impressions: Vomiting Vomiting type: unspecified Vomiting Intractability: non-intractable Nausea presence: with nausea Qualified Codes: R11.2 - Nausea with vomiting, unspecified Diarrhea Diarrhea type: unspecified type Qualified Codes: R19.7 - Diarrhea, unspecified JETTBREEANTON ION December 29, 2016 14:52
[2016-12-29] MEDS ORDERED: DIPH1TAB PO (14:59)
== END 2016-12-29 15:18 | disposition home or self-care (01) ==
LOC: ER 10:15
DX: R10.12 Left upper quadrant pain (principal); R11.2 Nausea with vomiting, unspecified; R19.7 Diarrhea, unspecified; E11.9 Type 2 diabetes mellitus without complications; Z90.49 Acquired absence of other specified parts of digestive tract
CPT/HCPCS: 36415; 74177; 80053; 81001; 81025; 83690; 85027; 87086; 87324; 96361; 96374; 96375; 99285; J2405; J3010; J7030; S0028; 87045

== ENCOUNTER 2017-01-26 10:57 | Emergency (ER) | payer OTHER ==
[~2017-01-26 10:57] MED LIST changes: +DIPH1TAB PO; +HYDR-971 PO; +METR250T PO; +PROM25TA10 PO
[2017-01-26 11:38] LABS: BILIRUBIN,URINE NEGATIVE (NEG); GLUCOSE,URINE NEGATIVE (NEG); NITRITE,URINE NEGATIVE (NEG); PH,URINE 5.5; PROTEIN,URINE NEGATIVE (NEG-TRACE); UROBILINOGEN,URINE 0.2 mg/dL (0.2 mg/dL)
[2017-01-26 11:49] LABS: BACTERIA,URINE FEW /HPF (0-FEW); RBC,URINE 0 /HPF (0-2); SQUAMOUS EPITHELIAL CELL,UR FEW /LPF; WBC,URINE 0 /HPF (0-4)
[2017-01-26 11:52] LABS: BASO % 0 % (0-3); EOS % 2 % (0-3); HEMATOCRIT 36.6 % (36.0-47.0); HEMOGLOBIN 11.9 g/dL (12.0-15.5); LYMPH # 1.6 x10^3/uL (1.0-4.8); LYMPH % 25 % (24-48); MEAN CORPUSCULAR HEMOGLOBIN 25 pg (25-35); MEAN CORPUSCULAR HGB CONC 33 g/dL (31-37); MEAN CORPUSCULAR VOLUME 77 fL (79-100); MONO % 6 % (0-9); NEUT % 68 % (31-73); PLATELET COUNT 200 x10^3/uL (140-400); RED BLOOD COUNT 4.79 x10^6/uL (3.50-5.40); RED CELL DISTRIBUTION WIDTH 15.2 % (11.5-14.5); WHITE BLOOD COUNT 6.4 x10^3/uL (4.0-11.0)
[2017-01-26 11:58] LABS: CALCIUM 8.6 mg/dL (8.5-10.1); CREATININE 0.7 mg/dL (0.6-1.0); GFR 98.9; POTASSIUM 4.1 mmol/L (3.5-5.1)
[2017-01-26] MEDS ORDERED: IV NORMAL SALINE 1000ML BAG 1,000 ML IV ONE (12:00)
[2017-01-26] MEDS ORDERED: MORPHINE SULFATE 10 MG/ML VIAL. IV ONE (12:00)
[2017-01-26] MEDS ORDERED: DICYCLOMINE HCL 10 MG CAPSULE PO ONE (12:00)
[2017-01-26] MEDS ORDERED: FAMOTIDINE 20 MG/2 ML VIAL IVP ONE (12:00)
[2017-01-26 12:03] LABS: ALBUMIN 3.4 g/dL (3.4-5.0); ALBUMIN/GLOBULIN RATIO 0.8 (1.0-1.7); TOTAL BILIRUBIN 0.5 mg/dL (0.2-1.0); TOTAL PROTEIN 7.8 g/dL (6.4-8.2)
[2017-01-26 12:50] VITALS: BP 102/64
[2017-01-26] MEDS ORDERED: ONDA4TAB10 SL (12:54)
[2017-01-26] MEDS ORDERED: DIPH1TAB PO (12:54)
[2017-01-26] MEDS ORDERED: ACET1TAB33 PO (12:54)
[2017-01-26] MEDS ORDERED: MECL25TA3 PO (12:54)
[2017-01-26] MEDS ORDERED: DICY20TA3 PO (12:54)
--- NOTE | 2017-01-26 12:57 | PHYS DOC ---
Past Medical History Past Medical History: Diabetes-Type II, Gallstones, Other Additional Past Medical Histor: left leg deficit from injury during birthing, GESTATIONAL DM Past Surgical History: Cholecystectomy, Tonsillectomy Alcohol Use: None Drug Use: None Adult General Chief Complaint Chief Complaint: NAUSEA/VOMITING/[facility] HPI Patient is a 31 year old female with history of gallstone, postcholecystectomy 3 months ago, diabetes type 2, who presents today with nausea vomiting and diarrhea and slight left upper quadrant pain. that began 2 days ago. Patient denies any hematemesis or melena. Denies any fever. Denies any chance she is . She is in the ED approximately a month ago for similar complaints. She states she also has history of chronic vertigo. PCP is Dr. Headley Review of Systems Review of Systems Constitutional: Denies fever or chills [] Eyes: Denies change in visual acuity, redness, or eye pain [] HENT: Denies nasal congestion or sore throat [] Respiratory: Denies cough or shortness of breath [] Cardiovascular: No additional information not addressed in HPI [] GI: , nausea, vomiting, diarrhea and LUQ pain : Denies dysuria or hematuria [] Musculoskeletal: Denies back pain or joint pain [] Integument: Denies rash or skin lesions [] Neurologic: Denies headache, focal weakness or sensory changes [] Endocrine: Denies polyuria or polydipsia [] Current Medications Current Medications Current Medications Medications (Trade) Dose Ordered Sig/Don Start Time Stop Time Status Last Admin Dose Admin Dicyclomine HCl (Bentyl) 20 mg 1X ONCE 01/26/17 12:00 01/26/17 12:01 DC 01/26/17 11:47 20 MG Famotidine (Pepcid) 20 mg 1X ONCE 01/26/17 12:00 01/26/17 12:01 DC 01/26/17 11:47 20 MG Morphine Sulfate 5 mg 1X ONCE 01/26/17 12:00 01/26/17 12:01 DC 01/26/17 11:47 5 MG Sodium Chloride 1,000 ml @ 1,000 mls/hr 1X ONCE 01/26/17 12:00 01/26/17 12:59 01/26/17 11:47 1,000 MLS/HR Allergies Allergies Allergies Coded Allergies Type Severity Reaction Last Updated Verified No Known Drug Allergies 8/19/14 No Physical Exam Physical Exam Constitutional: Well developed, well nourished, no acute distress, non-toxic appearance. [] HENT: Normocephalic, atraumatic, bilateral external ears normal, oropharynx moist, no oral exudates, nose normal. [] Eyes: PERRLA, EOMI, conjunctiva normal, no discharge. [] Neck: Normal range of motion, no tenderness, supple, no stridor. [] Cardiovascular:Heart rate regular rhythm, no murmur [] Lungs & Thorax: Bilateral breath sounds clear to auscultation [] Abdomen: Bowel sounds normal, soft, no tenderness, no masses, no pulsatile masses. [] Skin: Warm, dry, no erythema, no rash. [] Back: No tenderness, no CVA tenderness. [] Extremities: No tenderness, no cyanosis, no clubbing, ROM intact, no edema. [] Neurologic: Alert and oriented X 3, normal motor function, normal sensory function, no focal deficits noted. [] Psychologic: Affect normal, judgement normal, mood normal. [] Current Patient Data Vital Signs Vital Signs Date Time Temp Pulse Resp B/P (MAP) Pulse Ox O2 Delivery O2 Flow Rate FiO2 01/26/17 11:51 72 16 113/76 (88) 97 Room Air 01/26/17 11:10 98.4 98.4 Lab Values Laboratory Tests Test 01/26/17 11:05 01/26/17 11:40 Urine Collection Type Void Urine Color Yellow Urine Clarity Clear Urine pH 5.5 Urine Specific [place] 1.025 Urine Protein Negative mg/dL (NEG-TRACE) Urine Glucose (UA) Negative mg/dL (NEG) Urine Ketones (Stick) Negative mg/dL (NEG) Urine Blood Negative (NEG) Urine Nitrite Negative (NEG) Urine Bilirubin Negative (NEG) Urine Urobilinogen Dipstick 0.2 mg/dL (0.2 mg/dL) Urine Leukocyte Esterase Negative (NEG) Urine RBC 0 /HPF (0-2) Urine WBC 0 /HPF (0-4) Urine Squamous Epithelial Cells Few /LPF Urine Bacteria Few /HPF (0-FEW) Urine Mucus Marked /LPF White Blood Count 6.4 x10^3/uL (4.0-11.0) Red Blood Count 4.79 x10^6/uL (3.50-5.40) Hemoglobin 11.9 g/dL (12.0-15.5) L Hematocrit 36.6 % (36.0-47.0) Mean Corpuscular Volume 77 fL (79-100) L Mean Corpuscular Hemoglobin 25 pg (25-35) Mean Corpuscular Hemoglobin Concent 33 g/dL (31-37) Red Cell Distribution Width 15.2 % (11.5-14.5) H Platelet Count 200 x10^3/uL (140-400) Neutrophils (%) (Auto) 68 % (31-73) Lymphocytes (%) (Auto) 25 % (24-48) Monocytes (%) (Auto) 6 % (0-9) Eosinophils (%) (Auto) 2 % (0-3) Basophils (%) (Auto) 0 % (0-3) Neutrophils # (Auto) 4.3 x10^3uL (1.8-7.7) Lymphocytes # (Auto) 1.6 x10^3/uL (1.0-4.8) Monocytes # (Auto) 0.4 x10^3/uL (0.0-1.1) Eosinophils # (Auto) 0.1 x10^3/uL (0.0-0.7) Basophils # (Auto) 0.0 x10^3/uL (0.0-0.2) Sodium Level 141 mmol/L (136-145) Potassium Level 4.1 mmol/L (3.5-5.1) Chloride Level 106 mmol/L (98-107) Carbon Dioxide Level 27 mmol/L (21-32) Anion Gap 8 (6-14) Blood Urea Nitrogen 12 mg/dL (7-20) Creatinine 0.7 mg/dL (0.6-1.0) Estimated GFR (Cockcroft-Gault) 98.9 BUN/Creatinine Ratio 17 (6-20) Glucose Level 102 mg/dL (70-99) H Calcium Level 8.6 mg/dL (8.5-10.1) Total Bilirubin 0.5 mg/dL (0.2-1.0) Aspartate Amino Transferase (AST) 15 U/L (15-37) Alanine Aminotransferase (ALT) 17 U/L (14-59) Alkaline Phosphatase 61 U/L (46-116) Total Protein 7.8 g/dL (6.4-8.2) Albumin 3.4 g/dL (3.4-5.0) Albumin/Globulin Ratio 0.8 (1.0-1.7) L Lipase 124 U/L (73-393) Laboratory Tests 01/26/17 11:40 Laboratory Tests 01/26/17 11:40 EKG EKG [] Radiology/Procedures Radiology/Procedures [] Course & Med Decision Making Course & Med Decision Making Pertinent Labs and Imaging studies reviewed. (See chart for details) This is a 31-year-old female patient who presents today with left upper quadrant abdominal pain, nausea vomiting and diarrhea that began 2 days ago. Patient denies any fever. Negative urine hCG, urine negative for infection. CBC CMP lipase with no acute findings. Symptoms are likely viral. Patient was provided a gas meter installer recommended she follows up next week. Discharged with meclizine for her chronic vertigo, Zofran, dicyclomine, and Tylenol 3. Off not this patient has been in the ED a month ago facility her complaints. I did emphasize the importance of following up with her gas meter installer. Dragon Disclaimer Dragon Disclaimer This electronic medical record was generated, in whole or in part, using a voice recognition dictation system. Departure Departure Impression: Primary Impression: Left upper quadrant pain Additional Impressions: Nausea and vomiting Diarrhea Disposition: 01 HOME, SELF-CARE Condition: STABLE Referrals: CORY GUO MD (PCP) Follow-up in 1-2 weeks SARTHAK HOLT MD Follow-up in one to 7 days Patient Instructions: Abdominal Pain, Diarrhea, Nausea and Vomiting Additional Instructions: You were seen with symptoms suspicious of a viral illness. We provided you a gas meter installer and recommended you follow-up next week. Push fluids, maintain good hand hygiene. Follow-up with the primary care doctor as well in 1- 2 weeks. Scripts Diphenoxylate Hcl/Atropine (LOMOTIL TABLET) 1 Each Tablet 1 TAB PO TID, #30 TAB Prov: MUTUNGA,ANTON PATIENT FINANCIAL SPECIALIST 01/26/17 Dicyclomine Hcl (DICYCLOMINE HCL) 20 Mg Tablet 1 TAB PO TID, #30 TAB 1 Refill Prov: MUTUNGA,ANTON PATIENT FINANCIAL SPECIALIST 01/26/17 Meclizine Hcl (MECLIZINE HCL) 25 Mg Tablet 1 TAB PO TID, #30 TAB Prov: ANTON JOSHI APRN 01/26/17 Ondansetron (ZOFRAN ODT) 4 Mg Tab.rapdis 1 TAB SL Q8HRS, #15 TAB Prov: ANTON JOSHI APRN 01/26/17 Acetaminophen With Codeine (ACETAMINOPHEN-COD #3 TABLET) 1 Each Tablet 1 TAB PO PRN Q6HRS Y for PAIN, #30 TAB Prov: ANTON JOSHI APRN 01/26/17 Problem Qualifiers Additional Impressions: Nausea and vomiting Vomiting type: unspecified Vomiting Intractability: non-intractable Qualified Codes: R11.2 - Nausea with vomiting, unspecified Diarrhea Diarrhea type: unspecified type Qualified Codes: R19.7 - Diarrhea, unspecified ANTON JOSHI APRN Jan 26, 2017 12:57
== END 2017-01-26 13:00 | disposition home or self-care (01) ==
LOC: ER 10:57
DX: R10.12 Left upper quadrant pain (principal); R11.2 Nausea with vomiting, unspecified; R19.7 Diarrhea, unspecified; R42 Dizziness and giddiness; E11.9 Type 2 diabetes mellitus without complications; Z90.49 Acquired absence of other specified parts of digestive tract
CPT/HCPCS: 36415; 80053; 81001; 81025; 83690; 85027; 96361; 96374; 96375; 99284; J2270; J7030; S0028

== ENCOUNTER 2018-02-12 23:27 | Emergency (ER) | payer OTHER ==
[2018-02-13 00:09] LABS: URINE HCG POC HCG NEGATIVE (Negative)
[2018-02-13 00:23] LABS: BILIRUBIN,URINE NEGATIVE (NEG); CLARITY,URINE CLOUDY; COLOR,URINE YELLOW; GLUCOSE,URINE >=1000 mg/dL (NEG); NITRITE,URINE NEGATIVE (NEG); PROTEIN,URINE NEGATIVE (NEG-TRACE)
[2018-02-13 00:30] LABS: AMORPHOUS SEDIMENT,UR PRESENT /HPF; BACTERIA,URINE FEW /HPF (0-FEW); RBC,URINE 0 /HPF (0-2); SQUAMOUS EPITHELIAL CELL,UR MOD /LPF; WBC,URINE OCC /HPF (0-4)
[2018-02-13 01:11] LABS: ADD MAN DIFF? NO
[2018-02-13] MEDS: IV NORMAL SALINE 500ML BAG 500 ML IV (01:18)
[2018-02-13 01:19] LABS: BASO % 0 % (0-3); EOS # 0.3 x10^3/uL (0.0-0.7); EOS % 3 % (0-3); HEMATOCRIT 36.6 % (36.0-47.0); HEMOGLOBIN 12.1 g/dL (12.0-15.5); LYMPH # 3.1 x10^3/uL (1.0-4.8); LYMPH % 31 % (24-48); MEAN CORPUSCULAR HEMOGLOBIN 27 pg (25-35); MEAN CORPUSCULAR HGB CONC 33 g/dL (31-37); MEAN CORPUSCULAR VOLUME 82 fL (79-100); MONO # 0.4 x10^3/uL (0.0-1.1); MONO % 4 % (0-9); NEUT # 6.1 x10^3uL (1.8-7.7); NEUT % 61 % (31-73); PLATELET COUNT 217 x10^3/uL (140-400); RED BLOOD COUNT 4.48 x10^6/uL (3.50-5.40); RED CELL DISTRIBUTION WIDTH 14.1 % (11.5-14.5); WHITE BLOOD COUNT 10.1 x10^3/uL (4.0-11.0)
[2018-02-13 01:28] LABS: ANION GAP 7 (6-14); BLOOD UREA NITROGEN 12 mg/dL (7-20); CALCIUM 8.9 mg/dL (8.5-10.1); CARBON DIOXIDE 26 mmol/L (21-32); CHLORIDE 104 mmol/L (98-107); CREATININE 0.8 mg/dL (0.6-1.0); GFR 84.2; GLUCOSE 232 mg/dL (70-99); POTASSIUM 3.9 mmol/L (3.5-5.1); SODIUM 137 mmol/L (136-145)
[2018-02-13 01:35] LABS: ALBUMIN 3.6 g/dL (3.4-5.0); ALK PHOS 63 U/L (46-116); ALT (SGPT) 18 U/L (14-59); AST (SGOT) 9 U/L (15-37); DIRECT BILIRUBIN 0.1 mg/dL (0.0-0.2); LIPASE 178 U/L (73-393); TOTAL BILIRUBIN 0.2 mg/dL (0.2-1.0); TOTAL PROTEIN 7.9 g/dL (6.4-8.2)
[2018-02-13] MEDS: IOHEXOL 300 MG/ML 100ML VIAL. IV (01:35)
[2018-02-13] MEDS: MORPHINE SULFATE 4 MG/ML DISP.SYRIN. IV (02:17)
[2018-02-13] MEDS ORDERED: ONDANSETRON PF 4 MG/2 ML VIAL. (03:05)
[2018-02-13] MEDS: ONDANSETRON PF 4 MG/2 ML VIAL. IV (03:30)
== END 2018-02-13 04:09 | disposition home or self-care (01) ==
LOC: ER 23:27
DX: R10.84 Generalized abdominal pain (principal); R11.0 Nausea; R19.7 Diarrhea, unspecified; E11.9 Type 2 diabetes mellitus without complications; Z90.49 Acquired absence of other specified parts of digestive tract
CPT/HCPCS: 36415; 74177; 80048; 80076; 81001; 81025; 83690; 85025; 96361; 96374; 96375; 99285-25; J2060; J2270; J2405; J7040; Q9967

== ENCOUNTER 2018-05-20 20:28 | Emergency (ER) | payer OTHER ==
[~2018-05-20] VITALS: Ht 152.4 cm; Wt 73.0 kg
[~2018-05-20 20:28] MED LIST changes: +ACET1TAB33 PO; +DICY20TA3 PO; +DOCU-109 PO; -DOCU-27 PO; +LOPE1LIQ7 PO; +MECL25TA3 PO; +METF500T16 PO; -METF500T4 PO; +ONDA4TAB10 SL
[2018-05-20 21:21] VITALS: BP 140/82
--- NOTE | 2018-05-20 21:53 | PHYS DOC ---
Past Medical History Past Medical History: Diabetes-Type II, Gallstones, Other Additional Past Medical Histor: left leg deficit from injury during birthing, GESTATIONAL DM Past Surgical History: Cholecystectomy, Tonsillectomy Alcohol Use: None Drug Use: None Adult General Chief Complaint Chief Complaint: THUMB HPI HPI Patient is a 32 year old female who presents with right thumb pain for the past month. Patient noted right progressive right thumb pain over the last month worse with use. She notes pain at the base of right thumb at the thenar eminence. She denies any trauma. She has decreased range of motion with numbness of her right thumb. Review of Systems Review of Systems Constitutional: Denies fever or chills Eyes: Denies change in visual acuity, redness, or eye pain HENT: Denies nasal congestion or sore throat Respiratory: Denies cough or shortness of breath Cardiovascular: No additional information not addressed in HPI GI: Denies abdominal pain, nausea, vomiting, bloody stools or diarrhea : Denies dysuria or hematuria Musculoskeletal: Denies back pain, with right thumb joint pain Integument: Denies rash or skin lesions Neurologic: Denies headache, focal weakness or sensory changes Endocrine: Denies polyuria or polydipsia All other systems were reviewed and found to be within normal limits, except as documented in this note. Allergies Allergies Allergies Coded Allergies Type Severity Reaction Last Updated Verified No Known Drug Allergies 04/14/14 No Physical Exam Physical Exam Constitutional: Well developed, well nourished, no acute distress, non-toxic appearance. HENT: Normocephalic, atraumatic, bilateral external ears normal, oropharynx moist, no oral exudates, nose normal. Eyes: PERRLA, EOMI, conjunctiva normal, no discharge. Neck: Normal range of motion, no tenderness, supple, no stridor. Cardiovascular:Heart rate regular rhythm, no murmur Lungs & Thorax: Bilateral breath sounds clear to auscultation Abdomen: Bowel sounds normal, soft, no tenderness, no masses, no pulsatile masses. Skin: Warm, dry, no erythema, no rash. Back: No tenderness, no CVA tenderness. Extremities: with tenderness at right 1st MCP joint, with mild swelling, no cyanosis, no clubbing, ROM intact, no edema. Distal sensation intact to light touch and position sense. Neurologic: Alert and oriented X 3, normal motor function, normal sensory function, no focal deficits noted. Psychologic: Affect normal, judgement normal, mood normal. Current Patient Data Vital Signs Vital Signs Date Time Temp Pulse Resp B/P (MAP) Pulse Ox O2 Delivery O2 Flow Rate FiO2 05/20/18 21:21 98.4 78 20 140/82 (101) 100 Room Air 98.4 EKG EKG [] Radiology/Procedures Radiology/Procedures [] Course & Med Decision Making Course & Med Decision Making Emergency department course Patient presents with right hand injury DDx- Fracture, dislocation, sprain, contusion Patient was stable in the emergency department. Right hand x-rays were unremarkable. Patient was placed in a right thumb spica with orthopedic follow- up. DNVI. Dragon Disclaimer Dragon Disclaimer This electronic medical record was generated, in whole or in part, using a voice recognition dictation system. Splinting Patient informed of findings. Right thumb spica applied by RN The splint is checked by me, with appropriate stabilization of the injury. Distal capillary refill normal and distal neurologic function intact Departure Departure Impression: Primary Impression: Sprain of right thumb Disposition: 01 HOME, SELF-CARE Condition: STABLE Referrals: CORY GUO MD (PCP) Follow-up tomorrow for further evaluation SHASHA CEJA MD Follow-up tomorrow for further evaluation Patient Instructions: Thumb Sprain Scripts Ibuprofen (IBUPROFEN) 600 Mg Tablet 600 MG PO PRN Q8HRS PRN for INFLAMMATION for 5 Days, #15 TAB Take with food Prov: JAKE ZIMMERMAN MD 05/20/18 JAKE ZIMMERMAN MD May 20, 2018 21:52
[2018-05-20] MEDS ORDERED: IBUP-1007 PO (22:50)
--- NOTE | 2018-05-21 04:08 | RAD ---
Indication:RIGHT THUMB PAIN X3 WEEKS. UNABLE TO MOVE DIGIT. NO KNOWN INJURY TECHNIQUE: 3 views of right hand COMPARISON: None FINDINGS/ impression: No acute fracture or dislocation. No soft tissue abnormality. No arthritic changes. Electronically signed by: Sb Hernandez DO (05/21/2018 4:05 AM) [facility]
== END 2018-05-20 23:02 | disposition home or self-care (01) ==
LOC: ER 20:28
DX: S63.601A Unspecified sprain of right thumb, initial encounter (principal); E11.9 Type 2 diabetes mellitus without complications; Z90.49 Acquired absence of other specified parts of digestive tract; X58.XXXA Exposure to other specified factors, initial encounter; Y93.89 Activity, other specified; Y92.89 Other specified places as the place of occurrence of the external cause; Y99.8 Other external cause status
CPT/HCPCS: 29125; 73130; 99284

== ENCOUNTER 2018-10-10 23:14 | Emergency (ER) | payer OTHER ==
[~2018-10-10] VITALS: Ht 165.1 cm; Wt 74.8 kg
[~2018-10-10 23:14] MED LIST changes: +ALBU2.5V8 INH; +HYDR-3164 PO; -HYDR-971 PO; -HYDR15SO4 PO; +HYDR15SO6 PO; +IBUP-1007 PO; -PROAIR HFA8.5 GM INH
--- NOTE | 2018-10-11 00:13 | PHYS DOC ---
Past Medical History Past Medical History: Diabetes-Type II, Gallstones, Other Additional Past Medical Histor: left leg deficit from injury during birthing, GESTATIONAL DM (ELLIOT RODRIGUES APRN) Past Surgical History: Cholecystectomy, Tonsillectomy (ELLIOT RODRIGUES APRN) Alcohol Use: None Drug Use: None (ELLIOT RODRIGUES APRN) Adult General Chief Complaint Chief Complaint: NAUSEA/VOMITING/DIARRHA HPI HPI 33-year-old female presents to ER for complaints of N/V since this morning- she reports she has had multiple episodes of vomiting. She denies fever, urinary sxs , diarrhea, or vaginal sxs. She denies recent travel or other having GI issues. LMP 2018- has arm implant control. (ELLIOT RODRIGUES APRN) Review of Systems Review of Systems Constitutional: Denies fever or chills [] Eyes: Denies change in visual acuity, redness, or eye pain [] HENT: Denies nasal congestion or sore throat [] Respiratory: Denies cough or shortness of breath [] Cardiovascular: No additional information not addressed in HPI [] GI: Denies abdominal pain, nausea, vomiting, bloody stools or diarrhea [] : Denies dysuria or hematuria [] Musculoskeletal: Denies back pain or joint pain [] Integument: Denies rash or skin lesions [] Neurologic: Denies headache, focal weakness or sensory changes [] Endocrine: Denies polyuria or polydipsia [] All other systems were reviewed and found to be within normal limits, except as documented in this note. (ELLIOT RODRIGUES APRN) Current Medications Current Medications Current Medications Medications (Trade) Dose Ordered Sig/Don Start Time Stop Time Status Last Admin Dose Admin Info (CONTRAST GIVEN -- Rx MONITORING) 1 each PRN DAILY PRN 10/11/18 01:15 10/13/18 01:14 Iohexol (Omnipaque 300 Mg/ml) 75 ml 1X ONCE 10/11/18 01:30 10/11/18 01:31 DC 10/11/18 01:14 75 ML Ondansetron HCl (Zofran) 4 mg 1X ONCE 10/11/18 00:30 10/11/18 00:31 DC 10/11/18 00:22 4 MG Sodium Chloride 1,000 ml @ 1,000 mls/hr 1X ONCE 10/11/18 00:30 10/11/18 01:29 DC 10/11/18 00:22 1,000 MLS/HR ([facility]) Allergies Allergies Allergies Coded Allergies Type Severity Reaction Last Updated Verified No Known Drug Allergies 04/14/14 No ([facility]) Physical Exam Physical Exam Constitutional: Well developed, well nourished, no acute distress, non-toxic appearance. [] HENT: Normocephalic, atraumatic, oropharynx moist, nose normal. [] Eyes: Pupils equal, conjunctiva normal, no discharge. [] Neck: Normal range of motion, no tenderness, supple, no stridor. [] Cardiovascular: Heart rate regular rhythm, no murmur [] Lungs & Thorax: Bilateral breath sounds clear to auscultation. Resp. equal/ nonlabored Abdomen: Bowel sounds normal, soft- no distention/rigidity, tender to palp. LLQ , no masses, no pulsatile masses. [] Skin: Warm, dry, no erythema, no rash. [] Back: No tenderness, no CVA tenderness. [] Extremities: No tenderness, no cyanosis, no clubbing, ROM intact, no edema. [] Neurologic: Alert and oriented X 3, normal motor function, normal sensory function, no focal deficits noted. [] Psychologic: Affect normal, judgement normal, mood normal. [] (REFFITT,ELLIOT Mcgovern APRN) Current Patient Data Vital Signs Vital Signs Date Time Temp Pulse Resp B/P (MAP) Pulse Ox O2 Delivery O2 Flow Rate FiO2 10/10/18 23:28 97.9 79 16 109/67 (81) 98 Room Air 97.9 ([facility]) Lab Values Laboratory Tests Test 10/10/18 23:30 10/10/18 23:35 10/11/18 00:05 Urine Collection Type Unknown Urine Color Yellow Urine Clarity Clear Urine pH 7.0 Urine Specific [place] 1.010 Urine Protein Negative mg/dL (NEG-TRACE) Urine Glucose (UA) Negative mg/dL (NEG) Urine Ketones (Stick) Negative mg/dL (NEG) Urine Blood Negative (NEG) Urine Nitrite Negative (NEG) Urine Bilirubin Negative (NEG) Urine Urobilinogen Dipstick 0.2 mg/dL (0.2 mg/dL) Urine Leukocyte Esterase Trace (NEG) Urine RBC 0 /HPF (0-2) Urine WBC 1-4 /HPF (0-4) Urine Squamous Epithelial Cells Few /LPF Urine Bacteria Few /HPF (0-FEW) POC Urine HCG, Qualitative Hcg negative (Negative) White Blood Count 12.2 x10^3/uL (4.0-11.0) H Red Blood Count 4.54 x10^6/uL (3.50-5.40) Hemoglobin 12.0 g/dL (12.0-15.5) Hematocrit 37.6 % (36.0-47.0) Mean Corpuscular Volume 83 fL (79-100) Mean Corpuscular Hemoglobin 26 pg (25-35) Mean Corpuscular Hemoglobin Concent 32 g/dL (31-37) Red Cell Distribution Width 15.4 % (11.5-14.5) H Platelet Count 223 x10^3/uL (140-400) Neutrophils (%) (Auto) 67 % (31-73) Lymphocytes (%) (Auto) 28 % (24-48) Monocytes (%) (Auto) 3 % (0-9) Eosinophils (%) (Auto) 2 % (0-3) Basophils (%) (Auto) 1 % (0-3) Neutrophils # (Auto) 8.2 x10^3uL (1.8-7.7) H Lymphocytes # (Auto) 3.4 x10^3/uL (1.0-4.8) Monocytes # (Auto) 0.4 x10^3/uL (0.0-1.1) Eosinophils # (Auto) 0.2 x10^3/uL (0.0-0.7) Basophils # (Auto) 0.1 x10^3/uL (0.0-0.2) Sodium Level 144 mmol/L (136-145) Potassium Level 3.8 mmol/L (3.5-5.1) Chloride Level 106 mmol/L (98-107) Carbon Dioxide Level 28 mmol/L (21-32) Anion Gap 10 (6-14) Blood Urea Nitrogen 16 mg/dL (7-20) Creatinine 0.8 mg/dL (0.6-1.0) Estimated GFR (Cockcroft-Gault) 83.7 BUN/Creatinine Ratio 20 (6-20) Glucose Level 122 mg/dL (70-99) H Calcium Level 9.4 mg/dL (8.5-10.1) Total Bilirubin 0.2 mg/dL (0.2-1.0) Aspartate Amino Transferase (AST) 15 U/L (15-37) Alanine Aminotransferase (ALT) 17 U/L (14-59) Alkaline Phosphatase 55 U/L (46-116) Total Protein 7.7 g/dL (6.4-8.2) Albumin 3.4 g/dL (3.4-5.0) Albumin/Globulin Ratio 0.8 (1.0-1.7) L Lipase 154 U/L (73-393) Laboratory Tests 10/11/18 00:05 Laboratory Tests 10/11/18 00:05 (NATALEE FERRERA DO) EKG EKG [] (ELLIOT RODRIGUES APRN) Radiology/Procedures Radiology/Procedures [] (ELLIOT RODRIGUES APRN) Course & Med Decision Making Course & Med Decision Making Pertinent Labs and Imaging studies reviewed. (See chart for details) 1305: Pt was just taken to CT- she reports she is feeling better after IV Zofran dose. WBCs on labs 12.2 no bands. UA unremarkable with neg. HCG. 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 LLQ so imaging was done. Pt's case was discussed with Dr. Ferrera who will assume pt's case and disposition. (ELLIOT RODRIGUES APRN) Course & Med Decision Making Dr. Melgar's note Received patient at 2 AM, agree with previous H&P. CT SCAN OF THE ABDOMEN AND PELVIS WITH IV CONTRAST. History: Left lower quadrant pain Comparison:None. Procedure: Contiguous axial images of the abdomen and pelvis were performed after the administration of 75 cc of Omni 300 IV contrast and oral contrast. CT Abdomen with contrast: Findings: Liver: Unremarkable Spleen: Unremarkable Pancreas: Unremarkable Adrenal Glands: Unremarkable Kidneys: Unremarkable There is no mass or lymphadenopathy. There is no free air. There is no free fluid. The appendix is normal. Impression: No acute findings. End Impression CT Pelvis with Contrast: Findings: The urinary bladder appears normal. There is no free fluid. There is no lymphadenopathy. Impression: No acute findings. Patient continued to be in stable condition, discussed the findings and plan with the patient who voiced understanding. All questions were answered. (NATALEE FERRERA DO) Dragon Disclaimer Dragon Disclaimer This electronic medical record was generated, in whole or in part, using a voice recognition dictation system. (ELLIOT RODRIGUES APRN) Departure Departure Impression: Primary Impression: Abdominal pain Additional Impression: Vomiting Disposition: 01 HOME, SELF-CARE Condition: IMPROVED Referrals: CORY GUO MD (PCP) Follow-up in 2 days Patient Instructions: Abdominal Pain, Nausea and Vomiting Additional Instructions: Drink plenty of fluids, frequent small sips. No fatty foods, no milk, and no pepper for the next 48 hours. For the next 48 hours eat a diet rich in carbohydrates with foods such as bananas, rice, applesauce, and toast. Follow- up with your regular doctor in 2 days. Return to the ER if worsening pain, unable to tolerate liquids, or any other concerns. Scripts Metoclopramide Hcl (REGLAN) 10 Mg Tablet 10 MG PO QIDACHS, #30 TAB 0 Refills Prov: NATALEE FERRERA DO 10/11/18 Hyoscyamine Sulfate (LEVSIN) 0.125 Mg Tablet 0.125 MG PO QID, #30 TAB Prov: NATALEE FERRERA DO 10/11/18 Problem Qualifiers Primary Impression: Abdominal pain Abdominal location: unspecified location Qualified Codes: R10.9 - Unspecified abdominal pain Additional Impression: Vomiting Vomiting type: unspecified Vomiting Intractability: non-intractable Nausea presence: with nausea Qualified Codes: R11.2 - Nausea with vomiting, unspecified ELLIOT RODRIGUES APRN Oct 11, 2018 00:13 NATALEE FERRERA DO Oct 11, 2018 01:45
[2018-10-11 00:15] LABS: BILIRUBIN,URINE NEGATIVE (NEG); CLARITY,URINE CLEAR; COLOR,URINE YELLOW; NITRITE,URINE NEGATIVE (NEG); PROTEIN,URINE NEGATIVE (NEG-TRACE); UROBILINOGEN,URINE 0.2 mg/dL (0.2 mg/dL)
[2018-10-11 00:16] LABS: BASO # 0.1 x10^3/uL (0.0-0.2); BASO % 1 % (0-3); EOS # 0.2 x10^3/uL (0.0-0.7); EOS % 2 % (0-3); HEMATOCRIT 37.6 % (36.0-47.0); LYMPH # 3.4 x10^3/uL (1.0-4.8); LYMPH % 28 % (24-48); MEAN CORPUSCULAR HEMOGLOBIN 26 pg (25-35); MEAN CORPUSCULAR HGB CONC 32 g/dL (31-37); MEAN CORPUSCULAR VOLUME 83 fL (79-100); MONO # 0.4 x10^3/uL (0.0-1.1); MONO % 3 % (0-9); NEUT # 8.2 x10^3uL (1.8-7.7); NEUT % 67 % (31-73); PLATELET COUNT 223 x10^3/uL (140-400); RED BLOOD COUNT 4.54 x10^6/uL (3.50-5.40); RED CELL DISTRIBUTION WIDTH 15.4 % (11.5-14.5); WHITE BLOOD COUNT 12.2 x10^3/uL (4.0-11.0)
[2018-10-11 00:28] LABS: BACTERIA,URINE FEW /HPF (0-FEW); RBC,URINE 0 /HPF (0-2); SQUAMOUS EPITHELIAL CELL,UR FEW /LPF
[2018-10-11] MEDS ORDERED: ONDANSETRON PF 4 MG/2 ML VIAL. IV ONE (00:30)
[2018-10-11] MEDS ORDERED: IV NORMAL SALINE 1000ML BAG 1,000 ML IV ONE (00:30)
[2018-10-11 00:37] LABS: CALCIUM 9.4 mg/dL (8.5-10.1); CREATININE 0.8 mg/dL (0.6-1.0); GFR 83.7; POTASSIUM 3.8 mmol/L (3.5-5.1)
[2018-10-11 00:41] LABS: ALBUMIN 3.4 g/dL (3.4-5.0); ALBUMIN/GLOBULIN RATIO 0.8 (1.0-1.7); TOTAL BILIRUBIN 0.2 mg/dL (0.2-1.0); TOTAL PROTEIN 7.7 g/dL (6.4-8.2)
[2018-10-11] MEDS ORDERED: CONTRAST GIVEN. MC PRN (01:15)
--- NOTE | 2018-10-11 01:26 | RAD ---
CT SCAN OF THE ABDOMEN AND PELVIS WITH IV CONTRAST. History: Left lower quadrant pain Comparison:None. Procedure: Contiguous axial images of the abdomen and pelvis were performed after the administration of 75 cc of Omni 300 IV contrast and oral contrast. CT Abdomen with contrast: Findings: Liver: Unremarkable Spleen: Unremarkable Pancreas: Unremarkable Adrenal Glands: Unremarkable Kidneys: Unremarkable There is no mass or lymphadenopathy. There is no free air. There is no free fluid. The appendix is normal. Impression: No acute findings. End Impression CT Pelvis with Contrast: Findings: The urinary bladder appears normal. There is no free fluid. There is no lymphadenopathy. Impression: No acute findings. PQRS Compliance Statement: One or more of the following individualized dose reduction techniques were utilized for this examination: 1. Automated exposure control 2. Adjustment of the mA and/or kV according to patient size 3. Use of iterative reconstruction technique Electronically signed by: Harris Tolentino III, MD (10/11/2018 1:23 AM) [facility]
[2018-10-11] MEDS ORDERED: IOHEXOL 300 MG/ML 100ML VIAL. IV ONE (01:30)
[2018-10-11 01:38] VITALS: BP 125/61
[2018-10-11] MEDS ORDERED: METO10TA81 PO (01:45)
[2018-10-11] MEDS ORDERED: HYOS0.1264 PO (01:45)
[2018-10-11] MEDS ORDERED: IOHEXOL 300 MG/ML 100ML VIAL. ONE (05:56)
== END 2018-10-11 01:57 | disposition home or self-care (01) ==
LOC: ER 23:14
DX: R11.2 Nausea with vomiting, unspecified (principal); R10.32 Left lower quadrant pain; E11.9 Type 2 diabetes mellitus without complications; Z90.49 Acquired absence of other specified parts of digestive tract
CPT/HCPCS: 36415; 74177; 80053; 81001; 81025; 83690; 85025; 87086; 96361; 96374; 99284; J2405; J7030; Q9967

== ENCOUNTER 2018-11-19 17:35 | Emergency (ER) | payer OTHER ==
[~2018-11-19] VITALS: Ht 152.4 cm; Wt 74.8 kg
[~2018-11-19 17:35] MED LIST changes: +HYOS0.1264 PO; +METO10TA81 PO
[2018-11-19 18:01] VITALS: BP 125/80
[2018-11-19] MEDS ORDERED: NAPROXEN 500 MG TABLET PO STA (18:04)
[2018-11-19] MEDS ORDERED: HYDROcodone/APAP 5/325MG 1 TAB TABLET PO ONE (18:15)
--- NOTE | 2018-11-19 18:22 | PHYS DOC ---
Past Medical History Past Medical History: Diabetes-Type II Additional Past Medical Histor: left leg deficit from injury during birthing, GESTATIONAL DM (ANTON JOSHI APRN) Past Surgical History: Cholecystectomy, Tonsillectomy (ANTON JOSHI APRN) Alcohol Use: None Drug Use: None (ANTON JOSHI APRN) Adult General Chief Complaint Chief Complaint: KNEE SWELLING HPI HPI Patient is a 33 year old female with history of diabetes type 2 who presents to the ED today complaining of 10 out of 10 left anterior knee pain worse on walking up steps that began yesterday. Patient denies any known injury. Denies taking anything specifically to relieve her pain. She states the pain is intermittent. She describes the pain as sharp. (ANTON JOSHI APRN) Review of Systems Review of Systems Constitutional: Denies fever or chills [] Musculoskeletal: Reports left anterior knee pain Integument: Denies rash or skin lesions [] Neurologic: Denies headache, focal weakness or sensory changes [] All other systems were reviewed and found to be within normal limits, except as documented in this note. (ANTON JOSHI APRN) Current Medications Current Medications Current Medications Medications (Trade) Dose Ordered Sig/Don Start Time Stop Time Status Last Admin Dose Admin Acetaminophen/ Hydrocodone Bitart (Lortab 5/325) 1 tab 1X ONCE 11/19/18 18:15 11/19/18 18:16 DC 11/19/18 18:16 1 TAB Naproxen (Naprosyn) 500 mg 1X STAT 11/19/18 18:04 11/19/18 18:13 DC 11/19/18 18:15 500 MG (VASYL VYAS DO) Allergies Allergies Allergies Coded Allergies Type Severity Reaction Last Updated Verified No Known Drug Allergies 04/14/14 No (VASYL VYAS DO) Physical Exam Physical Exam Constitutional: Well developed, well nourished, no acute distress, non-toxic appearance. [] Skin: Warm, dry, no erythema, no rash. [] Back: No tenderness, no CVA tenderness. [] Extremities: Left knee with no obvious deformity, no edema, no ecchymosis, slight tenderness on palpation of the left anterior knee. Full range of motion to negative Carmel sign, negative Neal sign, negative anterior-posterior drawer sign to the left knee. No laxity to the left knee. +2 left pedal pulse. Cap refill less than 2 seconds the left toes. Neurologic: Alert and oriented X 3, normal motor function, normal sensory function, no focal deficits noted. [] Psychologic: Affect normal, judgement normal, mood normal. [] (ANTON JOSHI APRN) Current Patient Data Vital Signs Vital Signs Date Time Temp Pulse Resp B/P (MAP) Pulse Ox O2 Delivery O2 Flow Rate FiO2 11/19/18 18:16 18 100 Room Air 11/19/18 18:01 98.3 92 125/80 (95) 98.3 (VASYL VYAS DO) EKG EKG [] (ANTON JOSHI APRN) Radiology/Procedures Radiology/Procedures [] (ANTON JOSHI APRN) Radiology/Procedures PROCEDURE: KNEE LEFT 4V EXAM: 4 views left knee DATE: 11/19/2018 6:37 PM INDICATION: NO KNOWN INJURY, ANTERIOR PATELLA PAIN, PATIENT PAINFUL/ DIFFICULT TO FLEX KNEE. COMPARISON: No Prior FINDINGS: No evidence of acute fracture or dislocation. Joint spaces are preserved without significant degenerative/proliferative change. No knee joint effusion. Neutral patellar tracking. IMPRESSION: No evidence of acute fracture or dislocation. Electronically signed by: Arnold Obregon MD (11/19/2018 7:26 PM) [facility] (VASYL VYAS DO) Course & Med Decision Making Course & Med Decision Making Pertinent Labs and Imaging studies reviewed. (See chart for details) This is a 33-year-old female patient presenting to the ED today with left knee pain, no known injury. Left knee x-rays are negative for any acute findings. Jay bandage provided to the knee by the technical sales representative, neurovascular exam is intact. Ice elevation encouraged. Discharged with diclofenac. Follow-up with orthopedic doctor in one week. (ANTON JOSHI APRN) Dragon Disclaimer Dragon Disclaimer This electronic medical record was generated, in whole or in part, using a voice recognition dictation system. (ANTON JOSHI APRN) Splinting Splinting : Location: Left knee Pre-Made Type: JAY bandage Pre-Proc Neuro Vasc Exam: normal Post-Proc Neuro Vasc Exam: normal, unchanged from pre-exam (VASYL VYAS DO) Departure Departure Impression: Primary Impression: Knee pain Disposition: 01 HOME, SELF-CARE Condition: STABLE Referrals: CORY GUO MD (PCP) STEVEN MARQUEZ II, MD follow up in 1-2 weeks Patient Instructions: Knee Pain, [id number] Additional Instructions: You were seen for left knee pain. Your left knee x-rays were negative for any acute findings. Wear the Jay bandage provided as tolerated and needed. Try to ice and elevate the extremity. Take the prescribed medication as needed for pain. Scripts Diclofenac Sodium (DICLOFENAC SODIUM) 50 Mg Tablet.dr 1 TAB PO BID, #20 TAB 0 Refills Prov: JETTBREEANTON LEMON 11/19/18 Attending Signature Attending Signature I have reviewed the PA/OFFICE MOVER's note and plan of care. I was available for consultation as needed during the patient's visit in the emergency department. I agree with the clinical impression, plan, and disposition. (VASYL VYAS DO) Problem Qualifiers Primary Impression: Knee pain Chronicity: acute Laterality: left Qualified Codes: M25.562 - Pain in left knee ANTON JOSHI APRN Nov 19, 2018 18:22 VASYL VYAS DO Nov 23, 2018 04:28
[2018-11-19] MEDS ORDERED: DICL50TA4 PO (19:14)
--- NOTE | 2018-11-19 19:29 | RAD ---
EXAM: 4 views left knee DATE: 11/19/2018 6:37 PM INDICATION: NO KNOWN INJURY, ANTERIOR PATELLA PAIN, PATIENT PAINFUL/ DIFFICULT TO FLEX KNEE. COMPARISON: No Prior FINDINGS: No evidence of acute fracture or dislocation. Joint spaces are preserved without significant degenerative/proliferative change. No knee joint effusion. Neutral patellar tracking. IMPRESSION: No evidence of acute fracture or dislocation. Electronically signed by: Arnold Obregon MD (11/19/2018 7:26 PM) [facility]
== END 2018-11-19 19:51 | disposition home or self-care (01) ==
LOC: ER 17:35
DX: M25.562 Pain in left knee (principal); E11.9 Type 2 diabetes mellitus without complications; Z90.49 Acquired absence of other specified parts of digestive tract; Z90.89 Acquired absence of other organs
CPT/HCPCS: 29505; 73564; 99283

== ENCOUNTER 2019-08-12 21:11 | Emergency (ER) | payer OTHER ==
[~2019-08-12] VITALS: Ht 167.6 cm; Wt 65.8 kg
[~2019-08-12 21:11] MED LIST changes: +DICL50TA4 PO
[2019-08-12] MEDS ORDERED: IV NORMAL SALINE 1000ML BAG 1,000 ML IV ONE (21:45)
[2019-08-12] MEDS ORDERED: MECLIZINE HCL 12.5 MG TABLET. PO ONE (21:45)
[2019-08-12 21:47] LABS: BASO % 1 % (0-3); EOS # 0.1 x10^3/uL (0.0-0.7); EOS % 2 % (0-3); HEMOGLOBIN 12.9 g/dL (12.0-15.5); LYMPH # 2.7 x10^3/uL (1.0-4.8); LYMPH % 29 % (24-48); MEAN CORPUSCULAR HEMOGLOBIN 27 pg (25-35); MEAN CORPUSCULAR HGB CONC 32 g/dL (31-37); MEAN CORPUSCULAR VOLUME 83 fL (79-100); MONO # 0.3 x10^3/uL (0.0-1.1); MONO % 4 % (0-9); NEUT # 5.9 x10^3/uL (1.8-7.7); NEUT % 65 % (31-73); PLATELET COUNT 203 x10^3/uL (140-400); RED CELL DISTRIBUTION WIDTH 14.1 % (11.5-14.5); WHITE BLOOD COUNT 9.1 x10^3/uL (4.0-11.0)
--- NOTE | 2019-08-12 21:48 | PHYS DOC ---
Past Medical History Past Medical History: Diabetes-Type II Additional Past Medical Histor: left leg deficit from injury during birthing, GESTATIONAL DM Past Surgical History: Cholecystectomy, Tonsillectomy Alcohol Use: None Drug Use: None Adult General Chief Complaint Chief Complaint: DIZZY/LIGHT HEADED HPI HPI Patient is a 33 year old female who presents with lightheadedness and dizziness is ongoing for 2 days. The patient states this happens when she moves her head. Denies any ear pain. Also states that 2-3 months ago she started having right arm numbness. Rates her pain currently as 0 out of 10 in severity. Her only history is diabetes. Her blood pressure arrival to the ER is 120/71. Comfort Filler # [id number] Review of Systems Review of Systems Constitutional: Denies fever or chills [] Eyes: Denies change in visual acuity, redness, or eye pain [] HENT: Denies nasal congestion or sore throat [] Respiratory: Denies cough or shortness of breath [] Cardiovascular: No additional information not addressed in HPI [] GI: Denies abdominal pain, nausea, vomiting, bloody stools or diarrhea [] : Denies dysuria or hematuria [] Musculoskeletal: Denies back pain or joint pain [] Integument: Denies rash or skin lesions [] Neurologic: Reports headache and dizziness. Reports R arm sensation changes Denies focal weakness. Endocrine: Denies polyuria or polydipsia [] Complete systems were reviewed and found to be within normal limits, except as documented in this note. Current Medications Current Medications Current Medications Medications (Trade) Dose Ordered Sig/Don Start Time Stop Time Status Last Admin Dose Admin Meclizine HCl (Antivert) 25 mg 1X ONCE 08/12/19 21:45 08/12/19 21:46 DC 08/12/19 21:51 25 MG Sodium Chloride 1,000 ml @ 1,000 mls/hr 1X ONCE 08/12/19 21:45 08/12/19 22:44 DC 08/12/19 21:51 1,000 MLS/HR Allergies Allergies Allergies Coded Allergies Type Severity Reaction Last Updated Verified No Known Drug Allergies 04/14/14 No Physical Exam Physical Exam Constitutional: Well developed, well nourished, no acute distress, non-toxic appearance. [] HENT: Normocephalic, atraumatic, bilateral external ears normal, oropharynx moist, no oral exudates, nose normal. [] Eyes: PERRLA, EOMI, conjunctiva normal, no discharge. [] Neck: Normal range of motion, tenderness to right neck, no erythema or edema.] Cardiovascular:Heart rate regular rhythm, no murmur [] Lungs & Thorax: Bilateral breath sounds clear to auscultation [] Abdomen: Bowel sounds normal, soft, no tenderness, no masses, no pulsatile masses. [] Skin: Warm, dry, no erythema, no rash. [] Back: No tenderness, no CVA tenderness. [] Extremities: No tenderness, no cyanosis, no clubbing, ROM intact, no edema. [] Neurologic: Alert and oriented X 3, See NIHSS. Psychologic: Affect normal, judgement normal, mood normal. [] Current Patient Data Vital Signs Vital Signs Date Time Temp Pulse Resp B/P (MAP) Pulse Ox O2 Delivery O2 Flow Rate FiO2 08/12/19 21:11 74 16 120/71 (87) 100 Room Air Lab Values Laboratory Tests Test 08/12/19 21:28 08/12/19 21:39 08/12/19 21:49 White Blood Count 9.1 x10^3/uL (4.0-11.0) Red Blood Count 4.80 x10^6/uL (3.50-5.40) Hemoglobin 12.9 g/dL (12.0-15.5) Hematocrit 40.0 % (36.0-47.0) Mean Corpuscular Volume 83 fL (79-100) Mean Corpuscular Hemoglobin 27 pg (25-35) Mean Corpuscular Hemoglobin Concent 32 g/dL (31-37) Red Cell Distribution Width 14.1 % (11.5-14.5) Platelet Count 203 x10^3/uL (140-400) Neutrophils (%) (Auto) 65 % (31-73) Lymphocytes (%) (Auto) 29 % (24-48) Monocytes (%) (Auto) 4 % (0-9) Eosinophils (%) (Auto) 2 % (0-3) Basophils (%) (Auto) 1 % (0-3) Neutrophils # (Auto) 5.9 x10^3/uL (1.8-7.7) Lymphocytes # (Auto) 2.7 x10^3/uL (1.0-4.8) Monocytes # (Auto) 0.3 x10^3/uL (0.0-1.1) Eosinophils # (Auto) 0.1 x10^3/uL (0.0-0.7) Basophils # (Auto) 0.0 x10^3/uL (0.0-0.2) Sodium Level 139 mmol/L (136-145) Potassium Level 3.4 mmol/L (3.5-5.1) L Chloride Level 105 mmol/L (98-107) Carbon Dioxide Level 25 mmol/L (21-32) Anion Gap 9 (6-14) Blood Urea Nitrogen 10 mg/dL (7-20) Creatinine 0.7 mg/dL (0.6-1.0) Estimated GFR (Cockcroft-Gault) 97.6 BUN/Creatinine Ratio 14 (6-20) Glucose Level 187 mg/dL (70-99) H Calcium Level 8.8 mg/dL (8.5-10.1) Total Bilirubin 0.3 mg/dL (0.2-1.0) Aspartate Amino Transferase (AST) 15 U/L (15-37) Alanine Aminotransferase (ALT) 15 U/L (14-59) Alkaline Phosphatase 42 U/L (46-116) L Total Protein 7.7 g/dL (6.4-8.2) Albumin 3.5 g/dL (3.4-5.0) Albumin/Globulin Ratio 0.8 (1.0-1.7) L Glucose (Fingerstick) 209 mg/dL (70-99) H POC Urine HCG, Qualitative Hcg negative (Negative) Laboratory Tests 08/12/19 21:28 Laboratory Tests 08/12/19 21:28 EKG EKG [] Radiology/Procedures Radiology/Procedures [][facility] [address] [place] [address] IMAGING REPORT Signed PATIENT: KAUR PEREIRA ACCOUNT: [id number] : 1985 LOCATION: ER AGE: 33 SEX: F EXAM STATUS: REG ER ORD. PHYSICIAN: VASYL MILLER APRN REASON: dizziness (2 days), R hand numbness (2-3 months),REFUSED TO REMOVE EARRINGS PROCEDURE: CT HEAD WO CONTRAST Exam: CT head INDICATION: Dizziness, right hand numbness TECHNIQUE: Sequential axial images through the head were obtained without the administration of IV contrast. Comparisons: None FINDINGS: No focal parenchymal lesion or hemorrhage is identified. There is no midline shift or sulcal effacement. No acute vascular territory infarction is identified. Love-white distinction is preserved. The ventricular system is within normal limits without compression hydrocephalus. The basal cisterns are well maintained. The visualized portions of the paranasal sinuses and mastoid air cells are well-pneumatized. No acute fractures. IMPRESSION: No acute intracranial abnormality. Exposure: One or more of the following in the visualized dose reduction techniques were utilized for this examination: 1. Automated exposure control 2. Adjustment of the MA and/or KV according to patient size Use of iterative of reconstructive technique Electronically signed by: Erika Lang MD (08/12/2019 10:22 PM) [facility] DICTATED and SIGNED BY: ERIKA LANG MD DATE: 08/12/192221 Course & Med Decision Making Course & Med Decision Making Pertinent Labs and Imaging studies reviewed. (See chart for details) Will get CT head and labs. Will give fluids and meclizine. Labs and CT head are unremarkable. Will d/c home to follow up with primary care. Meclizine did improve symptoms. Dragon Disclaimer Dragon Disclaimer This electronic medical record was generated, in whole or in part, using a voice recognition dictation system. Departure Departure Impression: Primary Impression: Dizziness Disposition: 01 HOME, SELF-CARE Condition: STABLE Referrals: CORY GUO MD (PCP) Patient Instructions: Dizziness Additional Instructions: Please follow up with primary care doctor to obtain further workup. Thank you for visiting [facility]. We appreciate you trusting us with your care. If any additional problems come up don't hesitate to return to visit us. Please follow up with your primary care provider so they can plan a dditional care if needed and know about the problem that you had. If symptoms worsen come back to the Emergency Department. Any concerning symptoms that start such as chest pain, shortness of air, weakness or numbness on one side of the body, running high fevers or any other concerning symptoms return to the ER. Scripts Meclizine Hcl (MECLIZINE HCL) 25 Mg Tablet 1 TAB PO PRN TID PRN for DIZZINESS, #30 TAB Prov: VASYL MILLER APRN 08/12/19 NIHSS Stroke Scale NIH Stroke Scale: NIH Stroke Scale Response (Comments) Value Level of Consciousness: 0 Alert/Responsive 0 LOC Questions: 0 Answers both correctly 0 LOC Commands: 0 Performs both tasks 0 Best Gaze: 0 Normal 0 Visual: 0 No visual loss 0 Facial Palsy: 0 Normal, symmetrical 0 Motor - Left Arm 0 No drift 0 Motor - Right Arm 0 No drift 0 Motor - Left Leg 0 No drift 0 Motor: Right Leg 0 No drift 0 Limb Ataxia: 0 Absent 0 Sensory: 1 Mid to moderate loss 1 Best Language: 0 Normal 0 Dysathria: 0 Normal 0 Extinction and Inattention: 0 Normal 0 Total 1 VASYL MILLER APRN Aug 12, 2019 21:48
[2019-08-12 22:00] LABS: CALCIUM 8.8 mg/dL (8.5-10.1); CREATININE 0.7 mg/dL (0.6-1.0); GFR 97.6; POTASSIUM 3.4 mmol/L (3.5-5.1)
[2019-08-12 22:06] LABS: ALBUMIN 3.5 g/dL (3.4-5.0); ALBUMIN/GLOBULIN RATIO 0.8 (1.0-1.7); TOTAL BILIRUBIN 0.3 mg/dL (0.2-1.0); TOTAL PROTEIN 7.7 g/dL (6.4-8.2)
--- NOTE | 2019-08-12 22:24 | RAD ---
Exam: CT head INDICATION: Dizziness, right hand numbness TECHNIQUE: Sequential axial images through the head were obtained without the administration of IV contrast. Comparisons: None FINDINGS: No focal parenchymal lesion or hemorrhage is identified. There is no midline shift or sulcal effacement. No acute vascular territory infarction is identified. Love-white distinction is preserved. The ventricular system is within normal limits without compression hydrocephalus. The basal cisterns are well maintained. The visualized portions of the paranasal sinuses and mastoid air cells are well-pneumatized. No acute fractures. IMPRESSION: No acute intracranial abnormality. Exposure: One or more of the following in the visualized dose reduction techniques were utilized for this examination: 1. Automated exposure control 2. Adjustment of the MA and/or KV according to patient size Use of iterative of reconstructive technique Electronically signed by: Erika Tsai MD (08/12/2019 10:22 PM) [facility]
[2019-08-12] MEDS ORDERED: MECL25TA3 PO (23:08)
[2019-08-12 23:24] VITALS: BP 126/65
== END 2019-08-12 23:34 | disposition home or self-care (01) ==
LOC: ER 21:11
DX: R42 Dizziness and giddiness (principal); R20.0 Anesthesia of skin; E11.9 Type 2 diabetes mellitus without complications
CPT/HCPCS: 36415; 70450; 80053; 81025; 82962; 85025; 96360; 99285; J7030; J8597

== ENCOUNTER 2019-09-16 14:39 | Emergency (ER) | payer OTHER ==
[~2019-09-16] VITALS: Ht 160 cm; Wt 65.5 kg
[~2019-09-16 14:39] MED LIST changes: +MECL-75 PO; -MECL25TA3 PO
[2019-09-16 15:31] VITALS: BP 111/84
--- NOTE | 2019-09-16 16:04 | PHYS DOC ---
Past Medical History Past Medical History: Diabetes-Type II Additional Past Medical Histor: left leg deficit from injury during birthing, GESTATIONAL DM Past Surgical History: Cholecystectomy, Tonsillectomy Alcohol Use: None Drug Use: None Adult General Chief Complaint Chief Complaint: FLU SYMPTOM HPI HPI Patient is a 34 year old female who presents with cough, fever, congestion for last 3 days. States she is only been taking Tylenol for her symptoms. She states her only past medical history is diabetes. Vital signs are within normal limits in the emergency room. Patient denies shortness of breath, abdominal pain, nausea, vomiting, numbness or tingling, dizziness, headache, visual changes, weakness. Review of Systems Review of Systems Constitutional: fever or chills [] HENT: nasal congestion or sore throat [] Respiratory: cough or denies shortness of breath [] All other systems were reviewed and found to be within normal limits, except as documented in this note. Allergies Allergies Allergies Coded Allergies Type Severity Reaction Last Updated Verified No Known Drug Allergies 04/14/14 No Physical Exam Physical Exam Constitutional: Well developed, well nourished, no acute distress, non-toxic appearance. [] HENT: Normocephalic, atraumatic, bilateral external ears normal, oropharynx moist, no oral exudates, nose normal. Hoarse voice. Throat red without swelling or exudates. [] Eyes: PERRLA, EOMI, conjunctiva normal, no discharge. [] Neck: Normal range of motion, no tenderness, supple, no stridor. [] Cardiovascular:Heart rate regular rhythm, no murmur [] Lungs & Thorax: Bilateral breath sounds clear to auscultation [] Abdomen: Bowel sounds normal, soft, no tenderness, no masses, no pulsatile masses. [] Skin: Warm, dry, no erythema, no rash. [] Back: No tenderness, no CVA tenderness. [] Extremities: No tenderness, no cyanosis, no clubbing, ROM intact, no edema. [] Neurologic: Alert and oriented X 3, normal motor function, normal sensory function, no focal deficits noted. [] Psychologic: Affect normal, judgement normal, mood normal. [] Current Patient Data Vital Signs Vital Signs Date Time Temp Pulse Resp B/P (MAP) Pulse Ox O2 Delivery O2 Flow Rate FiO2 09/16/19 15:31 98.7 90 16 111/84 (93) 98 Room Air 98.7 Lab Values Laboratory Tests Test 09/16/19 15:58 Influenza Type A Antigen Negative (NEGATIVE) Influenza Type B Antigen Negative (NEGATIVE) EKG EKG [] Radiology/Procedures Radiology/Procedures [] Course & Med Decision Making Course & Med Decision Making Skin pink warm and dry. Speaks in full clear sentences. PERRLA. Lungs are clear to auscultation all lobes. Patient's voice is hoarse. Patient states her throat feels very itchy. Throat is reddened but there is no swelling or exudates. Vinny ateral tympanic white. Influenza negative. Dragon Disclaimer Dragon Disclaimer This electronic medical record was generated, in whole or in part, using a voice recognition dictation system. Departure Departure Impression: Primary Impression: Cough Additional Impression: Fever Disposition: HOME, SELF-CARE Condition: STABLE Referrals: CORY GUO MD (PCP) Patient Instructions: Bronchitis, [id number], Cough, Adult Additional Instructions: Follow up with primary care provider. Take medications as prescribed. Use over the counter cough drops. Take Tylenol or Ibuprofen for your pain or fever. Drink plenty of fluids. Scripts Benzonatate (TESSALON PERLE) 100 Mg Capsule 1 CAP PO TID, #21 CAP Prov: LILA RENDON GUIDE CRUISE 09/16/19 Methylprednisolone (MEDROL) 4 Mg Tab.ds.pk 1 PKG PO UD, #1 PKG Prov: LILA RENDON GUIDE CRUISE 09/16/19 Problem Qualifiers Additional Impression: Fever Fever type: unspecified Qualified Codes: R50.9 - Fever, unspecified LILA RENDON GUIDE CRUISE Sep 16, 2019 16:04
[2019-09-16 16:58] LABS: INFLUENZA A PATIENT NEGATIVE (NEGATIVE); INFLUENZA B PATIENT NEGATIVE (NEGATIVE)
[2019-09-16] MEDS ORDERED: METH4TAB2 PO (17:03)
[2019-09-16] MEDS ORDERED: BENZ100C PO (17:03)
== END 2019-09-16 17:10 | disposition home or self-care (01) ==
LOC: ER 14:39
DX: R05 Cough (principal); R50.9 Fever, unspecified; R09.81 Nasal congestion; E11.9 Type 2 diabetes mellitus without complications
CPT/HCPCS: 87804; 99284

== ENCOUNTER 2019-11-11 05:00 | Emergency (ER) | payer OTHER ==
[~2019-11-11 05:00] MED LIST changes: +BENZ100C PO; +METH4TAB2 PO
== END 2019-11-11 05:20 | disposition left against medical advice (07) ==
LOC: ER 05:00
DX: J02.9 Acute pharyngitis, unspecified (principal); Z53.21 Procedure and treatment not carried out due to patient leaving prior to being seen by health care provider

== ENCOUNTER 2020-03-09 09:07 | Emergency (ER) | payer OTHER ==
[~2020-03-09] VITALS: Ht 152.4 cm; Wt 67.0 kg
--- NOTE | 2020-03-09 10:36 | PHYS DOC ---
Past Medical History Past Medical History: Diabetes-Type II Additional Past Medical Histor: left leg deficit from injury during birthing, GESTATIONAL DM Past Surgical History: Cholecystectomy, Tonsillectomy Smoking Status: Never Smoker Alcohol Use: None Drug Use: None General Adult EDM: Chief Complaint: VAGINAL BLEEDING HPI: HPI: Patient is a 34 year old female who presents to the emergency department with complaints of vaginal bleeding and pelvic pain that began this morning. Patient states she is currently her last menstrual cycle was on January 142019, she is 5, para 4. She has not seen anyone for this and does not know what her due date is. She denies any irregular vaginal discharge or odor prior to the onset of the bleeding this morning. She states that the blood was just a small amount on the toilet tissue. She denies any dysuria, hematuria, increased urinary frequency, low back pain, fever, diarrhea, cough, shortness of breath, sore throat, or rash. She currently complains of pelvic pain that she currently rates 8 out of 10 on the pain scale and also began this morning. She denies any alleviating or exacerbating factors, the pain does not radiate. Review of Systems: Review of Systems: Constitutional: Denies fever or chills. [] HENT: Denies nasal congestion or sore throat. [] Respiratory: Denies cough or shortness of breath. [] Cardiovascular: Denies chest pain or edema. [] GI: Denies nausea, vomiting, or diarrhea, see HPI : Denies dysuria. [] Musculoskeletal: Denies back pain or joint pain. [] Integument: Denies rash. [] Neurologic: Denies headache Endocrine: Denies polyuria or polydipsia. [] Psychiatric: Denies depression or anxiety. [] Heart Score: Risk Factors: Risk Factors: DM, Current or recent (<one month) smoker, HTN, HLP, family history of CAD, obesity. Risk Scores: Score 0 - 3: 2.5% MACE over next 6 weeks - Discharge Home Score 4 - 6: 20.3% MACE over next 6 weeks - Admit for Clinical Observation Score 7 - 10: 72.7% MACE over next 6 weeks - Early Invasive Strategies Allergies: Allergies: Allergies Coded Allergies Type Severity Reaction Last Updated Verified No Known Drug Allergies 04/14/14 No Physical Exam: PE: Constitutional: Well developed, well nourished, no acute distress, non-toxic appearance. [] HENT: Normocephalic, atraumatic, bilateral external ears normal, nose normal. [] Eyes: PERRLA, EOMI, conjunctiva normal, no discharge. [] Neck: Normal range of motion, no stridor. [] Cardiovascular:Heart rate regular rhythm Lungs & Thorax: Respirations even and unlabored, no retractions, no respiratory distress Abdomen: soft, suprapubic tenderness to palpation, no palpable masses Back: No CVA tenderness Skin: Warm, dry, no erythema, no rash. [] Extremities: No cyanosis, ROM intact, no edema. [] Neurologic: Alert and oriented X 3, no focal deficits noted. [] Psychologic: Affect normal, judgement normal, mood normal. [] Current Patient Data: Labs: Laboratory Tests Test 03/09/20 09:36 POC Urine HCG, Qualitative Hcg positive (Negative) Vital Signs: Vital Signs Date Time Temp Pulse Resp B/P (MAP) Pulse Ox O2 Delivery O2 Flow Rate FiO2 03/09/20 09:20 98.7 72 16 126/68 (87) 100 Room Air 98.7 EKG: EKG: [] Radiology/Procedures: Radiology/Procedures: PROCEDURE: PREG 1ST TRIMESTER PREG 1ST TRIMESTER History: Reason: vag bleed / Spl. Instructions: / History: Comparison: None. Technique: Grayscale and color Doppler imaging of the pelvis was performed using transabdominal technique. Findings: The uterus measures 8.4 x 5.2 x 4.7 cm. Cervical length 3.39 cm. 2 intrauterine gestational sacs. Small subchorionic hematoma measures 1.5 x 1.7 x 0.67 m. Twin A: Regular rounded gestational sac. Yolk sac is identified. pole is identified with crown-rump length 0.86 cm. Estimated gestational age by ultrasound 6 weeks 6 days. heart rate 141 bpm. Twin B: Regular rounded gestational sac. Yolk sac is identified. pole is identified. [place]-rump length 0.85 cm. Estimated gestational age by ultrasound 6 weeks 6 days. heart rate 137 bpm. Right ovary measures 2.4 x 1.9 x 1.3 cm. Left ovary measures 4.6 x 3.3 x 3.2 cm. Dominant left ovarian follicle measures 2.3 cm. Normal Doppler flow to the ovaries bilaterally. No adnexal masses are seen. IMPRESSION: 1. Twin intrauterine with estimated gestational age 6 weeks 6 days with heart rate twin A 141 bpm and twin B 137 bpm. 2. Small subchorionic hematoma. [] Course & Med Decision Making: Course & Med Decision Making Pertinent Labs and Imaging studies reviewed. (See chart for details) 34-year-old female presents to the emergency department with complaints of spotting this morning. Work-up includes labs and a pelvic ultrasound. Patient's blood type is A+; CBC revealed a hemoglobin of 11.8 and hematocrit of 35.4 otherwise unremarkable; UA revealed a white blood cell count of 1-4 with moderate squamous cells and few bacteria positive hCG, likely contaminated as patient is asymptomatic; hCG level was 79,981. Ultrasound revealed:1. Twin intrauterine with estimated gestational age 6 weeks 6 days with heart rate twin A 141 bpm and twin B 137 bpm. 2. Small subchorionic hematoma. Advised patient of these findings. Recommended pelvic rest until follow-up with [facility]. Dr. Bright's information was provided to the patient for follow-up. Instructed the patient to call Dr. Bright's office for repeat evaluation in 1 to 2 days. Patient verbalized an understanding of home care, medications, follow-up, and return to ED instructions and was in agreement with the plan of care. [] Dragon Disclaimer: Dragon Disclaimer: This electronic medical record was generated, in whole or in part, using a voice recognition dictation system. Departure Departure Impression: Primary Impression: Vaginal bleeding affecting early Disposition: 01 HOME, SELF-CARE Condition: STABLE Referrals: TIERRA WAN MD Patient Instructions: Vaginal Bleeding During , First Trimester Additional Instructions: Your ultrasound today revealed two intrauterine pregnancies, measuring 6 weeks and 6 days. Your hCG level was 78,981. Pelvic rest until follow-up with Dr. Bright's office, call their office today to schedule a follow-up evaluation this week. Return to the ER if symptoms worsen. Justicifation of Admission Dx: Justifications for Admission: Justification of Admission Dx: N/A WILLIS WAGONER APRN Mar 09, 2020 10:36
[2020-03-09 10:44] LABS: BASO % 0 % (0-3); EOS # 0.2 x10^3/uL (0.0-0.7); EOS % 3 % (0-3); HEMATOCRIT 35.4 % (36.0-47.0); HEMOGLOBIN 11.8 g/dL (12.0-15.5); LYMPH # 2.8 x10^3/uL (1.0-4.8); LYMPH % 30 % (24-48); MEAN CORPUSCULAR HEMOGLOBIN 28 pg (25-35); MEAN CORPUSCULAR HGB CONC 33 g/dL (31-37); MEAN CORPUSCULAR VOLUME 84 fL (79-100); MONO # 0.5 x10^3/uL (0.0-1.1); MONO % 5 % (0-9); NEUT # 5.8 x10^3/uL (1.8-7.7); NEUT % 62 % (31-73); PLATELET COUNT 159 x10^3/uL (140-400); RED CELL DISTRIBUTION WIDTH 14.3 % (11.5-14.5); WHITE BLOOD COUNT 9.3 x10^3/uL (4.0-11.0)
[2020-03-09 11:01] LABS: BILIRUBIN,URINE NEGATIVE (NEG); CLARITY,URINE CLEAR; COLOR,URINE YELLOW; NITRITE,URINE NEGATIVE (NEG); PH,URINE 6.5 (<5.0-8.0); PROTEIN,URINE NEGATIVE (NEG-TRACE); UROBILINOGEN,URINE 0.2 mg/dL (0.2 mg/dL)
[2020-03-09 11:21] LABS: SQUAMOUS EPITHELIAL CELL,UR MOD /LPF
[2020-03-09 11:22] LABS: BACTERIA,URINE FEW /HPF (0-FEW); RBC,URINE OCC /HPF (0-2)
--- NOTE | 2020-03-09 12:00 | RAD ---
PREG 1ST TRIMESTER History: Reason: vag bleed / Spl. Instructions: / History: Comparison: None. Technique: Grayscale and color Doppler imaging of the pelvis was performed using transabdominal technique. Findings: The uterus measures 8.4 x 5.2 x 4.7 cm. Cervical length 3.39 cm. 2 intrauterine gestational sacs. Small subchorionic hematoma measures 1.5 x 1.7 x 0.67 m. Twin A: Regular rounded gestational sac. Yolk sac is identified. pole is identified with crown-rump length 0.86 cm. Estimated gestational age by ultrasound 6 weeks 6 days. heart rate 141 bpm. Twin B: Regular rounded gestational sac. Yolk sac is identified. pole is identified. [place]-rump length 0.85 cm. Estimated gestational age by ultrasound 6 weeks 6 days. heart rate 137 bpm. Right ovary measures 2.4 x 1.9 x 1.3 cm. Left ovary measures 4.6 x 3.3 x 3.2 cm. Dominant left ovarian follicle measures 2.3 cm. Normal Doppler flow to the ovaries bilaterally. No adnexal masses are seen. IMPRESSION: 1. Twin intrauterine with estimated gestational age 6 weeks 6 days with heart rate twin A 141 bpm and twin B 137 bpm. 2. Small subchorionic hematoma. Electronically signed by: Kade Claros DO (03/09/2020 11:57 AM) [id number]
[2020-03-09 13:00] VITALS: BP 114/61
== END 2020-03-09 13:10 | disposition home or self-care (01) ==
LOC: ER 09:07
DX: O46.91 Antepartum hemorrhage, unspecified, first trimester (principal); R10.2 Pelvic and perineal pain; E11.9 Type 2 diabetes mellitus without complications; Z90.89 Acquired absence of other organs; Z90.49 Acquired absence of other specified parts of digestive tract; Z3A.01 Less than 8 weeks gestation of pregnancy
CPT/HCPCS: 36415; 76801; 81001; 81025; 84702; 85025; 86900; 86901; 99285